=== PATIENT | female | born 1990 | race Caucasian/White ===

== ENCOUNTER 2023-11-20 12:50 | Inpatient (IN) | payer SELFPAY ==
[2023-11-20] VITALS (10 sets, daily range): BP systolic 110–144; BP diastolic 55–94; PULSE 75–94; RESP 16–18; TEMP 37.1–39.1; O2SAT 98–100; BMI 29.8
--- NOTE | 2023-11-20 13:19 | CT_ITS ---
WS: [id number] CT LEFT FOOT, WITH CONTRAST HISTORY: infection/abscess Technique: All CT scans at [facility] use at least one of these dose optimization techniques: automated exposure control; mA and/or kV adjustment per patient size (includes targeted exams where dose is matched to clinical indication); or iterative reconstruction. DLP: 290.18 mGy.cm COMPARISON: None available. Contrast: Omnipaque 350; 100 mL IV. Intramedullary kevin in the distal tibia. Additional fixation screws across the tibiotalar joint. No pr ior studies for comparison. No lucency is identified around the screws. There is osseous fusion acros s the subtalar joint. Focal soft tissue edema along the plantar surface of the foot at the level of the proximal fifth meta tarsal. There is a soft tissue tract which does not enhance extend into the anterior calcaneal proces s. This is highly suspicious for focal abscess. There is no osteomyelitis identified radiographically at this time. There is no loss of the normal overlying cortex. Size of the estimated soft tissue abs cess is 1.5 x 1.4 cm. Additional soft tissue abscess extends lateral from the anterior calcaneal proc ess. These 2 collections may actually communicate along the plantar surface of the foot. The smaller lateral collection is 1.4 x 1.0 cm. No definite osteomyelitis. CT/CT foot LT w con [id number] IMPRESSION: 1. Focal abscess along the plantar surface of the foot at the level of the ant erior calcaneus measuring 1.5 x 1.4 cm. 2. Additional abscess lateral to the anterior calcaneus measures 1.4 x 1.0 cm. These 2 collections probably communicate along the plantar surface of the calc aneus. 3. Soft tissue edema. 4. No osteomyelitis identified radiographically.
--- NOTE | 2023-11-20 13:21 | W.ED.EXTPRO ---
Documented by User: IRWIN Saucedo 11/20/23 16:28 HPI - Extremity Problem General: Chief complaint: Extremity Problem,Nontraumatic Stated complaint: left foot pain, infection Time Seen by Provider: 11/20/23 12:52 Source: patient and family Mode of arrival: ambulatory Limitations: no limitations History of Present Illness: Patient is a 33-year-old female with a history of epilepsy and neuromuscular dystrophy here with family for concerns of a left foot infection. She tells me she noticed the infection this morning and reportedly the foot was normal yesterday. She was reportedly seen at [facility] and referred to the emergency department. She denies known history of trauma or injury but reportedly cannot feel much to her legs. She is ambulatory here with the help of lower extremity bracing. She has not been running fevers although reportedly yesterday evening did not feel well . 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 MD Complaint: extremity pain and extremity swelling Onset (ago): hour(s) Pain Consistency: constant Location: left and other (foot) Radiation: none Relieving factors: nothing Exacerbating factors: nothing Associated symptoms: Reports no associated symptoms; Deny chest pain or fever(s) Review of Systems Const: Denies: fever(s), chills or body aches Card: Denies: chest pain Resp: Denies: dyspnea GI: Denies: abdominal pain Musc: Reports: extremity pain and extremity swelling; Denies: neck pain or back pain Neuro: Reports: numbness in extremities (chronic LE neuropathy) and sensory changes; Denies: headache(s) Physical Exam Const: COMMON NORMALS: no acute distress, average body habitus, patient oriented x3, no limitations, healthy appearing, alert and well nourished Resp: COMMON NORMALS: normal respiratory effort and clear to auscultation bilaterally AUSCULTATION: clear to auscultation bilaterally Cardio: COMMON NORMALS: regular rate and regular rhythm RATE: regular rate RHYTHM: regular rhythm Extremity: COMMON NORMALS: capillary refill normal GENERAL: Yes normal exam except as noted LEFT LOWER EXTREMITY: Yes foot & digits OTHER: chronic muscular atrophy consistent with her muscular dystrophy; patient has marked erythema to the plantar/lateral aspect of her L foot and ankle; there appears to be a plantar puncture wound to the bottom of the foot with developing abscess; no drainage; areas are very warm to the touch; she reportedly does not have much feeling to her lower extremities; no obvious lymphangitic streaking Neuro: COMMON NORMALS: patient oriented x3 SENSORIUM/ORIENTATION: Yes alert Skin: NARRATIVE SKIN EXAM: see above Course Consultations: Consultation #1: Dr. Chacon-agrees with plan for admission and will consult on patient Consultation #2: Dr. Calderón-will admit patient Vital Signs: Vital signs: Vital Signs Temperature 98.8 F 11/20/23 13:09 Pulse Rate 79 11/20/23 16:00 Respiratory Rate 16 11/20/23 13:09 Blood Pressure 138/82 11/20/23 16:00 Pulse Oximetry 100 11/20/23 16:00 Oxygen Delivery Me thod Room Air 11/20/23 16:00 MDM - Extremity (Nontraumatic) Medical Decision Making Patient is a 33-year-old female here with an extensive infection involving her left foot. There appears to be a plantar puncture wound clinically. CT scan showing 2 communicating abscesses along her calcaneus. No evidence of osteomyelitis at this time. She arrives with stable vital signs. Delayed blood work due to hemolysis. CRP has resulted and is 89.4. Blood cultures obtained and she has been started on Vanc and Zosyn. I have spoken to Dr. Chacon who agrees to consult on patient. Dr. Calderón will admit. Dr. Joseph aware of patient and will place admit orders. Medical Records I reviewed the patient's medical records. Lab Data 11/20/23 15:27 11/20/23 13:[address] 11/20/23 13:19 IMPRESSION: 1. Focal abscess along the plantar surface of the foot at the level of the anterior calcaneus measuring 1.5 x 1.4 cm. 2. Additional abscess lateral to the anterior calcaneus measures 1.4 x 1.0 cm. These 2 collections probably communicate along the plantar surface of the calcaneus. 3. Soft tissue edema. 4. No osteomyelitis identified radiographically. Laboratory Results WBC 6.25 10^3/uL (3.29-11.43) 11/20/23 15:27 Corrected WBC Cancelled 11/20/23 13:28 RBC 3.97 10^6/uL (3.85-5.65) 11/20/23 15:27 Hgb 11.50 g/dL (11.27-16.99) 11/20/23 15: Hct 35.9 % (36-47) L 11/20/23 15: MCV 90.4 fl (85-98) 11/20/23 15: MCH 29.0 pg (27-33) 11/20/23 15: MCHC 32.0 g/dL (30-55) 11/20/23 15: RDW 15.4 % (12.1-15.1) H 11/20/23 15:27 Plt Count 140 10^3/cmm (157-399) L 11/20/23 15: MPV 10.9 fL (7.4-10.4) H 11/20/23 15: Gran % Cancelled 11/20/23 13:28 Neut % (Auto) 71.7 % 11/20/23 15: Lymph % (Auto) 13.6 % 11/20/23 15: [place] % (Auto) 14.2 % 11/20/23 15: Eos % (Auto) 0.0 % 11/20/23 15:27 Baso % (Auto) 0.2 % 11/20/23 15:27 Neut # (Auto) 4.48 10^3/uL (1.8-7.7) 11/20/23 15: Lymph # (Auto) 0.9 10^3/uL (0.8-4.8) 11/20/23 15:27 [place] # (Auto) 0.9 10^3/uL (0.2-0.9) 11/20/23 15: Eos # (Auto) 0.0 10^3/uL (0.0-0.8) 11/20/23 15: Baso # (Auto) 0.0 10^3/uL (0.0-0.1) 11/20/23 15: Absolute Gran (auto) Cancelled 11/20/23 13:28 Nucleated RBC % (auto) 0 % 11/20/23 15: Nucleated RBCs # 0.0 /100WBC 11/20/23 15:27 ESR 31 mm/hr (0-15) H 11/20/23 15:27 Sodium 140 mmol/L (136-145) 11/20/23 13:28 Potassium 3.8 mmol/L (3.5-5.1) 11/20/23 13:28 Chloride 106 mmol/L (98-107) 11/20/23 13:28 Carbon Dioxide 19 mmol/L (22-29) L 11/20/23 13:28 Anion Gap 18.8 (5-19) 11/20/23 13:28 BUN 12 mg/dL (6-20) 11/20/23 13:28 Creatinine 0.4 mg/dL (0.5-0.9) L 11/20/23 13:28 GFR Calculation 182.7 mL/min (90-130) H 11/20/23 13:28 Glucose 88 mg/dL (65-115) 11/20/23 13:28 Calculated Osmolality 289 mOsm/kg (285-295) 11/20/23 13:28 Lactic Acid 0.6 mmol/L (0.5-2.2) 11/20/23 13:28 Calcium 8.7 mg/dL (8.5-10.5) 11/20/23 13:28 Total Bilirubin 0.4 mg/dL (0.15-1.2) 11/20/23 13:28 AST 45 U/L (0-32) H 11/20/23 13:28 ALT 59 U/L (0-33) H 11/20/23 13:28 Alkaline Phosphatase 186 U/L (35-105) H 11/20/23 13:28 C-Reactive Protein 89.4 mg/L (0.0-4.9) H 11/20/23 13:28 Total Protein 7.4 g/dL (6.6-8.7) 11/20/23 13:28 Albumin 3.8 g/dL (3.5-5.2) 11/20/23 13:28 Globulin 3.6 g/dL (1.3-4.6) 11/20/23 13:28 HCG, Qual Negative (Negative) 11/20/23 15:51 Urine Color Yellow (Yellow) 11/20/23 15:51 Urine Appearance Slightly cloudy (CLEAR) 11/20/23 15:51 Urine pH 6.5 (5-7) 11/20/23 15:51 Ur Specific [place] 1.010 (1.005-1.030) 11/20/23 15:51 Urine Protein Neg (Negative) 11/20/23 15:51 Urine Glucose (UA) Norm (Normal) 11/20/23 15:51 Urine Ketones Negative (Negative) 11/20/23 15:51 Urine Blood Neg (Negative) 11/20/23 15:51 Urine Nitrate Positive (Negative) A 11/20/23 15:51 Urine Bilirubin Neg (Negative) 11/20/23 15:51 Urine Urobilinogen Norm mg/dL (Negative) 11/20/23 15:51 Ur Leukocyte Esterase Trace (Negative) H 11/20/23 15:51 Urine RBC None /hpf (0-2) 11/20/23 15:51 Urine WBC Rare /hpf (0-5) 11/20/23 15:51 Ur Squamous Epith Cells 0-4 /hpf (0-5) H 11/20/23 15:51 Amorphous Sediment Not Reportable 11/20/23 15:51 Urine Bacteria 1+ /hpf (NONE) H 11/20/23 15:51 Discharge Plan Discharge Patient Disposition: Admitted As Inpatient Admit Provider: Jake Blevins Clinical Impression: Abscess of left foot, Cellulitis of foot, left, Infected puncture wound of plantar aspect of foot Condition: Stable Coding Level of Care Code ED Transit Survey Worker for Chg Fwd Documented by User: Todd Joseph DO 11/20/23 15:41 HPI - Extremity Problem General: Chief complaint: Extremity Problem,Nontraumatic Stated complaint: left foot pain, infection Time Seen by Provider: 11/20/23 12:52 Course Vital Signs: Vital signs: Vital Signs Temperature 98.8 F 11/20/23 13:09 Pulse Rate 79 11/20/23 16:00 Respiratory Rate 16 11/20/23 13:09 Blood Pressure 138/82 11/20/23 16:00 Pulse Oximetry 100 11/20/23 16:00 Oxygen Delivery Me thod Room Air 11/20/23 16:00 MDM - Extremity (Nontraumatic) Medical Decision Making Patient is a 33-year-old female here with an extensive infection involving her left foot. There appears to be a plantar puncture wound clinically. CT scan showing 2 communicating abscesses along her calcaneus. No evidence of osteomyelitis at this time. She arrives with stable vital signs. Delayed blood work due to hemolysis. CRP has resulted and is 89.4. Blood cultures obtained and she has been started on Vanc and Zosyn. I have spoken to Dr. Chacon who agrees to consult on patient. Dr. Calderón will admit. Dr. Joseph aware of patient and will place admit orders. Chart reviewed and patient discussed with midlevel. Agree with assessment and plan. Lab Data 11/20/23 15:27 11/20/23 13:[address] 11/20/23 13:19 IMPRESSION: 1. Focal abscess along the plantar surface of the foot at the level of the anterior calcaneus measuring 1.5 x 1.4 cm. 2. Additional abscess lateral to the anterior calcaneus measures 1.4 x 1.0 cm. These 2 collections probably communicate along the plantar surface of the calcaneus. 3. Soft tissue edema. 4. No osteomyelitis identified radiographically. Laboratory Results WBC 6.25 10^3/uL (3.29-11.43) 11/20/23 15:27 Corrected WBC Cancelled 11/20/23 13:28 RBC 3.97 10^6/uL (3.85-5.65) 11/20/23 15:27 Hgb 11.50 g/dL (11.27-16.99) 11/20/23 15: Hct 35.9 % (36-47) L 11/20/23 15:27 MCV 90.4 fl (85-98) 11/20/23 15: MCH 29.0 pg (27-33) 11/20/23 15: MCHC 32.0 g/dL (30-55) 11/20/23 15: RDW 15.4 % (12.1-15.1) H 11/20/23 15:27 Plt Count 140 10^3/cmm (157-399) L 11/20/23 15: MPV 10.9 fL (7.4-10.4) H 11/20/23 15:27 Gran % Cancelled 11/20/23 13:28 Neut % (Auto) 71.7 % 11/20/23 15:27 Lymph % (Auto) 13.6 % 11/20/23 15:27 [place] % (Auto) 14.2 % 11/20/23 15:27 Eos % (Auto) 0.0 % 11/20/23 15:27 Baso % (Auto) 0.2 % 11/20/23 15:27 Neut # (Auto) 4.48 10^3/uL (1.8-7.7) 11/20/23 15:27 Lymph # (Auto) 0.9 10^3/uL (0.8-4.8) 11/20/23 15:27 [place] # (Auto) 0.9 10^3/uL (0.2-0.9) 11/20/23 15:27 Eos # (Auto) 0.0 10^3/uL (0.0-0.8) 11/20/23 15:27 Baso # (Auto) 0.0 10^3/uL (0.0-0.1) 11/20/23 15:27 Absolute Gran (auto) Cancelled 11/20/23 13:28 Nucleated RBC % (auto) 0 % 11/20/23 15: Nucleated RBCs # 0.0 /100WBC 11/20/23 15:27 ESR 31 mm/hr (0-15) H 11/20/23 15:27 Sodium 140 mmol/L (136-145) 11/20/23 13:28 Potassium 3.8 mmol/L (3.5-5.1) 11/20/23 13:28 Chloride 106 mmol/L (98-107) 11/20/23 13:28 Carbon Dioxide 19 mmol/L (22-29) L 11/20/23 13:28 Anion Gap 18.8 (5-19) 11/20/23 13:28 BUN 12 mg/dL (6-20) 11/20/23 13:28 Creatinine 0.4 mg/dL (0.5-0.9) L 11/20/23 13:28 GFR Calculation 182.7 mL/min (90-130) H 11/20/23 13:28 Glucose 88 mg/dL (65-115) 11/20/23 13:28 Calculated Osmolality 289 mOsm/kg (285-295) 11/20/23 13:28 Lactic Acid 0.6 mmol/L (0.5-2.2) 11/20/23 13:28 Calcium 8.7 mg/dL (8.5-10.5) 11/20/23 13:28 Total Bilirubin 0.4 mg/dL (0.15-1.2) 11/20/23 13:28 AST 45 U/L (0-32) H 11/20/23 13:28 ALT 59 U/L (0-33) H 11/20/23 13:28 Alkaline Phosphatase 186 U/L (35-105) H 11/20/23 13:28 C-Reactive Protein 89.4 mg/L (0.0-4.9) H 11/20/23 13:28 Total Protein 7.4 g/dL (6.6-8.7) 11/20/23 13:28 Albumin 3.8 g/dL (3.5-5.2) 11/20/23 13:28 Globulin 3.6 g/dL (1.3-4.6) 11/20/23 13:28 HCG, Qual Negative (Negative) 11/20/23 15:51 Urine Color Yellow (Yellow) 11/20/23 15:51 Urine Appearance Slightly cloudy (CLEAR) 11/20/23 15:51 Urine pH 6.5 (5-7) 11/20/23 15:51 Ur Specific [place] 1.010 (1.005-1.030) 11/20/23 15:51 Urine Protein Neg (Negative) 11/20/23 15:51 Urine Glucose (UA) Norm (Normal) 11/20/23 15:51 Urine Ketones Negative (Negative) 11/20/23 15:51 Urine Blood Neg (Negative) 11/20/23 15:51 Urine Nitrate Positive (Negative) A 11/20/23 15:51 Urine Bilirubin Neg (Negative) 11/20/23 15:51 Urine Urobilinogen Norm mg/dL (Negative) 11/20/23 15:51 Ur Leukocyte Esterase Trace (Negative) H 11/20/23 15:51 Urine RBC None /hpf (0-2) 11/20/23 15:51 Urine WBC Rare /hpf (0-5) 11/20/23 15:51 Ur Squamous Epith Cells 0-4 /hpf (0-5) H 11/20/23 15:51 Amorphous Sediment Not Reportable 11/20/23 15:51 Urine Bacteria 1+ /hpf (NONE) H 11/20/23 15:51 All radiology interpretation(s) finalized by discharge Discharge Plan Discharge Patient Disposition: Admitted As Inpatient Admit Provider: Jake Blevins Clinical Impression: Abscess of left foot, Cellulitis of foot, left, Infected puncture wound of plantar aspect of foot Condition: Stable Coding Level of Care Code ED Transit Survey Worker for Sunita Mcbride
[2023-11-20] MEDS: piperacillin-tazobactam 3.375 GM in sodium chloride 0.9% (plus) 50 ML IV (13:58)
[2023-11-20 14:10] LABS: Chloride 106 mmol/L (98-107); Potassium 3.8 mmol/L (3.5-5.1); Sodium 140 mmol/L (136-145)
[2023-11-20] MEDS: iohexol 350 mg/mL 500 mL Btl (per mL) IV (14:10)
[2023-11-20 14:13] LABS: Lactic Sepsis W/Reflex 0.6 mmol/L (0.5-2.2)
--- NOTE | 2023-11-20 14:24 | PC.PHAR ---
PER [facility] [place], [place] [phone] PT HAS 2 MEDS BRAND NAME ONLY LAST FILL 10/15/23 90DS. KEPPRA 500MG 2 PO BID, LAMICTAL 25MG 2QAM.
[2023-11-20 14:32] LABS: Alanine Aminotransferase 59 U/L (0-33); Albumin Level 3.8 g/dL (3.5-5.2); Alkaline Phosphatase 186 U/L (35-105); Anion Gap 18.8 (5-19); Blood Urea Nitrogen 12 mg/dL (6-20); C Reactive Protein 89.4 mg/L (0.0-4.9); Calcium 8.7 mg/dL (8.5-10.5); Carbon Dioxide 19 mmol/L (22-29); Creatinine Clr Calc Pharmacy 201.4423; Globulin 3.6 g/dL (1.3-4.6); Glomerular Filtration Rate 182.7 mL/min (90-130); Glucose 88 mg/dL (65-115); Osmolality Calculated 289 mOsm/kg (285-295); Total Bilirubin 0.4 mg/dL (0.15-1.2); Total Protein 7.4 g/dL (6.6-8.7)
[2023-11-20] MEDS: vancomycin 1,000 MG in sodium chloride 0.9% 250 ML 250 MG IV ×2 (14:36→22:47)
[2023-11-20 14:53] LABS: Aspartate Amino Transferase 45 U/L (0-32)
[2023-11-20 15:37] LABS: Basophils % 0.2 %; Hematocrit 35.9 % (36-47); Lymphocytes # 0.9 10^3/uL (0.8-4.8); Lymphocytes % 13.6 %; Mean Corpuscular Volume 90.4 fl (85-98); Mean Platelet Volume 10.9 fL (7.4-10.4); Monocytes # 0.9 10^3/uL (0.2-0.9); Monocytes % 14.2 %; Neutrophils # 4.48 10^3/uL (1.8-7.7); Neutrophils % 71.7 %; Nucleated Red Blood Cells % 0 %; Platelet Count 140 10^3/cmm (157-399); Red Blood Count 3.97 10^6/uL (3.85-5.65); Red Cell Distribution Width 15.4 % (12.1-15.1); White Blood Count 6.25 10^3/uL (3.29-11.43)
[2023-11-20 16:01] LABS: Erythrocyte Sedimentation Rate 31 mm/hr (0-15)
--- NOTE | 2023-11-20 16:07 | P.HP_ITS ---
Providers/Chief Complaint 2 Chief Complaint: left foot pain, infection History of Present Illness Belkys Alba is a 33 year old female with past medical history of seizure disorder with last seizure many years ago Patient was brought into the ER with caregivers today because they noticed boggy swelling of the foot earlier in the day. Patient chronically does not have any sensation in the extremities so she is not aware of any injury to the foot recently. She also has an additional wound on the left hand. After the patient she lifted a hot keys by mistake after which she developed the wound on the hand over a month ago. She has been dressing the wound on and off with bandage. She has additional circumferential wound on the ring fingers of right hand. She does give history of deep possible bone infection many years ago for which she was on antibiotics for a long time. Patient herself denies any nausea, vomiting, abdominal pain, diarrhea. Does complain of having occasional headaches. Denies any subjective fever or fever. In the ER, CT of the foot was done which showed concerns for deep tissue infection with 2 abscess. Review of Systems 2 General: Reports: 10 or more systems reviewed and unremarkable except in HPI and below Const: Denies: fever(s), chills, body aches, change in appetite, change in weight, malaise, night sweats, diaphoresis, change in sleep pattern, daytime sleepiness or snoring Eyes: Denies: change in vision, blurry vision, photophobia, eye discomfort or eye discharge ENMT: Denies: throat pain, enlarged tonsils, hoarseness, mouth pain, oral sores, dry mouth, tinnitus, nasal congestion or post nasal drip Card: Denies: chest pain, palpitations, irregular heart rhythm, edema, swelling of feet/ankles, lightheadedness, syncope, pre-syncope, dyspnea on exertion, orthopnea, leg pain with exertion or acrocyanosis Resp: Denies: dyspnea, productive cough, non-productive cough, wheezing, stridor, pain on inspiration, change in phlegm color, hemoptysis or chest congestion GI: Denies: abdominal pain, nausea, vomiting, hematemesis, coffee ground emesis, dysphagia, heartburn, diarrhea, constipation, bloating, GI cramping, change in bowel habits, pain on defecation, hematochezia or melena : Denies: flank pain, dysuria, urinary frequency, urinary urgency, urinary hesitancy, nocturia or hematuria Musc: Denies: neck pain, back pain, extremity pain, joint pain, joint swelling, joint redness, joint stiffness or limited range of motion Neuro: Denies: headache(s), numbness in extremities, weakness in extremities, sensory changes, lack of coordination, difficulty walking, frequent falls, dizziness, vertigo, confusion, Slurred speech present, difficulty communicating thoughts or seizure-like activity Psych: Denies: anxiety, depression, mood swings, panic attacks, hopelessness or irritability Endo: Denies: polyuria, polydipsia, tired all the time, cold intolerance, excessive sweating, flushing or heat intolerance [place]/Lymph: Denies: easy bruising or easy bleeding All/Imm: Denies: tongue swelling, facial swelling or acute wheezing Medications/Allergies Home Medications Medication Instructions Recorded Confirmed Last Taken Type lamotrigine 25 mg tablet (Lamictal) 50 mg PO QAM 11/20/23 11/20/23 11/20/23 History levetiracetam 500 mg tablet 1,000 mg PO BID 11/20/23 11/20/23 11/20/23 History (Keppra) Allergies Allergy/AdvReac Type Severity Reaction Status Date / Time morphine Allergy ADR-Vomitin Verified 11/20/23 13:12 g sulfamethoxazole Allergy ADR-Vomitin Verified 11/20/23 13:12 [From Bactrim] g trimethoprim [From Bactrim] Allergy ADR-Vomitin Verified 11/20/23 13:12 g PFSH Acute 2 PFSH: Medical History (Updated 11/21/23 @ 11:47 by Jake Blevins MD) Fixation hardware in leg Orthopedic hardware present Muscular dystrophy Seizure disorder Surgical History (Updated 11/21/23 @ 11:50 by Jake Blevins MD) Status post open reduction with internal fixation of fracture Family History (Updated 11/21/23 @ 12:16 by Jake Blevins MD) Other Muscular dystrophy Seizure disorder Social History (Updated 11/21/23 @ 12:17 by Jake Blevins MD) Alcohol intake: never Caregiver/support person: Yes Household members: spouse Housing: House Marital status: Vitals/I&O/Wt Last Vital Signs Temp 98.8 F 11/20/23 13:09 Pulse 79 11/20/23 14:41 Resp 16 11/20/23 13:09 BP 119/80 11/20/23 15:30 Pulse Ox 100 11/20/23 14:41 O2 Del Method Room Air 11/20/23 14:41 11/20/23 11/20/23 11/20/23 06:59 14:59 22:59 Intake Total 50 / 50 Balance 50 / 50 Weight last 48 hrs Weight 78.925 kg Physical Exam 2 Narrative: General: No acute distress, AO x3 HEENT: PERRLA, pupils bilaterally equal and reactive Chest: Normal vesicular breath sounds, no added sounds, equal good air entry bilaterally CVS: S1-S2 regular, no murmurs, no tachycardia, no gallops, no rubs Abdomen: Soft, nontender, no organomegaly, bowel sounds present Neuro: No focal deficits, no facial deformity, AO x3, power 5/5 in all limbs Extremity: Left foot: Boggy swelling of the plantar aspect of the foot, localized recent temperature Left hand: Superficial partially healed wound present at the palmar aspect of the hand Missing top of the digits on both hands, contracture present Skin: OTHER: Data 11/21/23 05:31 11/21/23 05:31 Micro: Microbiology 11/20/23 13:35 Blood Culture - Preliminary Blood SPECIMEN COLLECTED 11/20/23 13:28 Blood Culture - Preliminary Blood SPECIMEN COLLECTED A&P Assessment and plan (1) Infected puncture wound of plantar aspect of foot: With concerns of cellulitis and abscess. Cannot rule out hardware infection. No osteomyelitis seen on CT with contrast. Dr. Chacon consulted from the ER. Check blood culture, MRSA swab, ESR, CRP. Empirically start on IV vancomycin and IV Zosyn. Patient most likely will need antibiotics for around 4-6 weeks post debridement in setting of abscess and possibility of hardware infection. Will have to follow-up OR cultures and plan further antibiotics accordingly. Tramadol 50 mg every 6 hourly as needed for pain control. Qualifiers: Encounter type: initial encounter Laterality: left Qualified Code(s): S91.332A - Puncture wound without foreign body, left foot, initial encounter; L08.9 - Local infection of the skin and subcutaneous tissue, unspecified (2) Cellulitis of foot, left: (3) Abscess of left foot: (4) Seizure disorder: (5) Muscular dystrophy: Plan Continue home dose of lamotrigine and Keppra. Left hand wound: Will plan for x-ray of the left hand to rule out deep collection. Wound care with Hydrofera Blue for now. Regular diet Heparin for DVT prophylaxis Famotidine for PUD prophylaxis Attestations 2 Medical Necessity Statement*: Admission for more than 2 midnights for management of infected puncture wound of the foot with cellulitis and abscess requiring debridement Diagnoses Infected puncture wound of plantar aspect of foot S91.332A; L08.9 Encounter type: initial encounter Laterality: left Cellulitis of foot, left L03.116 Abscess of left foot L02.612 Seizure disorder G40.909 Muscular dystrophy G71.00
[2023-11-20 16:15] LABS: Urine Color Yellow (Yellow)
[2023-11-20 16:16] LABS: Add Urine Microscopic? YES; Bacteria Urine 1+ /hpf; Bilirubin Urine Neg (Negative); Blood Urine Neg (Negative); Glucose Urine UA Norm (Normal); Ketones Urine Negative (Negative); Leukocyte Esterase Urine Trace (Negative); Nitrate Urine Positive (Negative); Protein Urine Neg (Negative); Squamous Epithelial Cell Urine 0-4 /hpf (0-5); Urine Appearance Slightly Cloudy (CLEAR); Urobilinogen Urine Norm (Negative); WBC Urine RARE /hpf (0-5); pH Urine 6.5 (5-7)
[2023-11-20 16:22] LABS: HCG Qualitative Urine. Negative (Negative)
--- NOTE | 2023-11-20 16:25 | PC.NURSE ---
report called to liset at 1623. Dr. Blevins to see pt prior to going up to med surg.
[2023-11-20 16:40] LABS: Procalcitonin 0.06 ng/mL (0-0.5)
--- NOTE | 2023-11-20 16:54 | P.CONIM_ITS ---
Providers/Reason For Consult 2 Consulting Physician/Specialty*: Sebas Chacon D.P.M./podiatry Reason for Consult*: Left foot infection Attending Physician: Jake Blevins MD History of Present Illness History of Present Illness Belyks Alba is a 33 year old female presents to the emergency department with complaints of red hot swollen left foot, unsure of etiology she has a neuromuscular disorder and has diminished protective sensation to her extremities, she believes she may have potentially sustained a puncture wound. Redness was noticed yesterday by her . She is also accompanied by her Father Yaron. Patient recently and recently moved to [place] from [place]. States that she has history of multiple surgeries to the left lower extremity. She had a reconstructive surgery on her left foot in [place], also had a left intramedullary nail due to a tib-fib fracture. She reports experiencing a postop infection at her left foot surgery, per her report a surgical cleanout was required and this entailed debriding bone. Patient denies any subjective nausea, vomiting, fever, chills, shortness of breath or chest pain. Review of Systems 2 General: Reports: 10 or more systems reviewed and unremarkable except in HPI and below Const: Denies: fever(s) or chills Eyes: Denies: change in vision Card: Denies: chest pain or palpitations Resp: Denies: dyspnea or productive cough GI: Denies: abdominal pain, nausea or vomiting : Denies: flank pain Musc: Reports: extremity swelling, joint stiffness and deformity Skin/Breast: Reports: erythema, sores, changes in skin color, dry skin, nail changes and change in hair Neuro: Reports: numbness in extremities, sensory changes and difficulty walking Psych: Denies: suicidal ideation Endo: Denies: change in body appearance Candelario/Lymph: Denies: tender lymph nodes Medications/Allergies Home Medications Medication Instructions Recorded Confirmed Last Taken Type lamotrigine 25 mg tablet (Lamictal) 50 mg PO QAM 11/20/23 11/20/23 11/20/23 History levetiracetam 500 mg tablet 1,000 mg PO BID 11/20/23 11/20/23 11/20/23 History (Keppra) Allergies Allergy/AdvReac Type Severity Reaction Status Date / Time morphine Allergy ADR-Vomitin Verified 11/20/23 13:12 g sulfamethoxazole Allergy ADR-Vomitin Verified 11/20/23 13:12 [From Bactrim] g trimethoprim [From Bactrim] Allergy ADR-Vomitin Verified 11/20/23 13:12 g PFSH Acute 2 PFSH: Medical History (Updated 11/20/23 @ 17:14 by Jake Blevins MD) Seizure disorder Vitals/I&O/Wt Last Vital Signs Temp 98.8 F 11/20/23 13:09 Pulse 79 11/20/23 16:00 Resp 16 11/20/23 13:09 BP 138/82 11/20/23 16:00 Pulse Ox 100 11/20/23 16:00 O2 Del Method Room Air 11/20/23 16:00 11/20/23 11/20/23 11/20/23 06:59 14:59 22:59 Intake Total 50 / 50 250 / 300 Balance 50 / 50 250 / 300 Weight last 48 hrs Weight 174 lb Physical Exam 2 Narrative: GENERAL: Patient is alert and oriented ?3 and in no acute distress. The following is a focused left lower extremity exam. VASCULAR: Dorsalis pedis palpable. Posterior tibial artery palpable. Capillary refill time less than 3 seconds to the distal hallux bilaterally. Calf is supple and nontender proximally and distally. Edema focally to the left lateral midfoot and forefoot. Increased warmth at the left lateral foot. NEUROLOGICAL: Protective sensation intact 0/10 sites, tested with Henriette Bety monofilament to bilateral feet. DERMATOLOGICAL: Punctuate lesion left plantar foot is area of potential portal of entry for puncture wound, no drainage from the site and measures 1 mm x 1 mm, does not probe deep, no sinus tract. No obvious open wound. Erythema at the left lateral foot. MUSCULOSKELETAL: No pain to palpation left foot secondary to diminished sensation. No crepitus with soft tissue palpation left foot. No range of motion left subtalar joint and left midfoot joint. Smooth nonpainful range of motion left ankle. Data 11/20/23 15:27 11/20/23 13:28 Micro: Microbiology 11/20/23 13:35 Blood Culture - Preliminary Blood SPECIMEN COLLECTED 11/20/23 13:28 Blood Culture - Preliminary Blood SPECIMEN COLLECTED Other data: Ordering Provider/Ordering MD: Sana Ye Date of Service: 07/26/24 Procedure(s): CT foot LT w con [id number] Accession Number(s): [id number] Report Number: [id number] WS: [id number] CT LEFT FOOT, WITH CONTRAST HISTORY: infection/abscess Technique: All CT scans at [facility] use at least one of these dose optimization techniques: automated exposure control; mA and/or kV adjustment per patient size (includes targeted exams where dose is matched to clinical indication); or iterative reconstruction. DLP: 290.18 mGy.cm COMPARISON: None available. Contrast: Omnipaque 350; 100 mL IV. Intramedullary kevin in the distal tibia. Additional fixation screws across the tibiotalar joint. No prior studies for comparison. No lucency is identified around the screws. There is osseous fusion across the subtalar joint. Focal soft tissue edema along the plantar surface of the foot at the level of the proximal fifth metatarsal. There is a soft tissue tract which does not enhance extend into the anterior calcaneal process. This is highly suspicious for focal abscess. There is no osteomyelitis identified radiographically at this time. There is no loss of the normal overlying cortex. Size of the estimated soft tissue abscess is 1.5 x 1.4 cm. Additional soft tissue abscess extends lateral from the anterior calcaneal process. These 2 collections may actually communicate along the plantar surface of the foot. The smaller lateral collection is 1.4 x 1.0 cm. No definite osteomyelitis. CT/CT foot w [facility] [id number] IMPRESSION: 1. Focal abscess along the plantar surface of the foot at the level of the anterior calcaneus measuring 1.5 x 1.4 cm. 2. Additional abscess lateral to the anterior calcaneus measures 1.4 x 1.0 cm. These 2 collections probably communicate along the plantar surface of the calcaneus. 3. Soft tissue edema. 4. No osteomyelitis identified radiographically. 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 X-ray left foot shows intact hardware at midfoot fusion x 2 and subtalar joint fusion as well as tibial kevin. No cortical irregularity or bony destruction, no soft tissue edema and no foreign body appreciated per my interpretation. CT scan left foot concerning for 2 abscesses communicating with each other and potentially plantarly to area of concern for puncture wound lateral to the anterior calcaneus. No leukocytosis Elevated CRP 89.4 mg/L Elevated ESR 31 Patient admitted to hospital service and started on empiric IV antibiotics N.p.o. at midnight Plans for I&D left foot tomorrow morning. Nonweightbearing left foot Podiatry will follow. Consult Attestations 2 Medical Necessity Statement: Abscess left foot, cellulitis left foot, requires IV antibiotics and surgical debridement. Coding Level of Care Code Acute Code for [facility] Diagnoses Abscess of left foot L02.612 Cellulitis of foot, left L03.116 Infected puncture wound of plantar aspect of foot S91.332A; L08.9 Encounter type: initial encounter Laterality: left
--- NOTE | 2023-11-20 16:57 | XRR_ITS ---
PROCEDURE INFORMATION: Exam: XR Left Foot Exam date and time: 11/20/2023 7:32 PM Age: 33 years old Clinical indication: Left; Prior surgery; Surgery date: 6+ months; Surgery type: Tendon release; Patient HX: Lt ankle/foot nerve pain; Open wound to bottom of lt foot; Concern for osteomyelitis; Previous orif of lt lower ext TECHNIQUE: Imaging protocol: Radiologic exam of the left foot. Views: 3 or more views. COMPARISON: CT foot LT w con [id number] 11/20/2023 2:09 PM FINDINGS: Bones/joints: Three threaded screws overlie the calcaneus, talus, and cuboid. [place] overlie the cuboid. No periprosthetic fracture or evidence of hardware failure. Severe degenerative changes of the foot with joint space narrowing. Partially visualized hardware within the distal tibia. Soft tissues: Moderate soft tissue swelling of the foot. XR/XR foot LT min 3V* [id number] IMPRESSION: Hardware is visualized in the proximal foot without evidence of hardware failure. No acute fractures seen. Severe degenerative changes of the foot.
--- NOTE | 2023-11-20 17:12 | XRR_ITS ---
PROCEDURE INFORMATION: Exam: XR Left Hand Exam date and time: 11/20/2023 7:32 PM Age: 33 years old Clinical indication: Injury or trauma; Other: Wound; Hand; Left; Prior surgery; Surgery date: 6+ months; Surgery type: Tendon release; Additional info: Open wound to lt palm; Lt ankle/foot nerve pain; Open wound to bottom of lt foot; Concern for osteomyelitis; Previous orif of lt lower ext. TECHNIQUE: Imaging protocol: Radiologic exam of the left hand. Views: 3 or more views. COMPARISON: No relevant prior studies available. FINDINGS: Bones/joints: No acute fractures or subluxations. Hardware overlies the distal and proximal phalanx of the 1st digit. Soft tissues: Soft tissue swelling of the palm. XR/XR hand LT 2V [id number] IMPRESSION: No acute fractures or subluxations.
--- NOTE | 2023-11-20 17:24 | PC.NURSE ---
Dr. Blevins called and states that patient can take her home medications in place of the generic brand medications that the hospital has available for pt. This nurse called med surg and relayed the message.
--- NOTE | 2023-11-20 17:28 | XRR_ITS ---
PROCEDURE INFORMATION: Exam: XR Left Tibia and Fibula Exam date and time: 11/20/2023 7:32 PM Age: 33 years old Clinical indication: Lower leg; Left; Prior surgery; Surgery date: 6+ months; Surgery type: Orif lt tibfib; Patient HX: Lt ankle/foot nerve pain; Open wound to bottom of lt foot; Concern for osteomyelitis; Previous orif of lt lower ext TECHNIQUE: Imaging protocol: Radiologic exam of the left tibia and fibula. Views: 2 views. COMPARISON: CR XR foot LT min 3V* [id number] 11/20/2023 7:32 PM FINDINGS: Bones/joints: Intramedullary kevin with proximal and distal interlocking screws overlies a the chronic fracture of the distal tibia in unchanged alignment. No periprosthetic fracture or hardware failure. Chronic deformity of the fibular diaphysis. The knee is well aligned. No knee joint effusion. Postsurgical changes with screw fixation of the visualized foot. Severe degenerative changes of the ankle with joint space narrowing. Soft tissues: The soft tissues are unremarkable. XR/XR tibia fibula LT 2V [id number] IMPRESSION: Intramedullary kevin with proximal and distal interlocking screws overlies a the chronic fracture of the distal tibia in unchanged alignment. No periprosthetic fracture or hardware failure. Chronic deformity of the fibular diaphysis.
--- NOTE | 2023-11-20 17:54 | PC.NURSE ---
Dr. Blevins called and spoke to this nurse, requesting we get medical hospital records from [facility]. This nurse relayed the message to Unit coordination Brian.
[2023-11-20 17:56] LABS: Iron 19 ug/dL (37-145); Thyroid Stimulating Hormone 1.02 uIU/mL (0.27-4.20); Vitamin B12 284 pg/mL (232-1245)
[2023-11-20 17:58] LABS: Percent Saturation 5.9 % (20-50); Total Iron Binding Capacity 319 mcg/dl; Unsaturated Iron Binding 300 ug/dL (112-347)
[2023-11-20] MEDS: sodium chloride 0.9% 1,000 ML 100 ML IV (18:21)
[2023-11-20] MEDS: heparin 5,000 unit/mL INJ 1 mL 5000 UNIT SUBCUT (18:40)
[2023-11-20] MEDS: famotidine 20 mg Tablet PO (19:36)
[2023-11-20] MEDS: acetaminophen 325 mg Tablet 650 MG PO (20:16)
[2023-11-21] VITALS (17 sets, daily range): BP systolic 97–130; BP diastolic 49–82; PULSE 60–94; RESP 12–20; TEMP 36.3–39.1; O2SAT 94–100; BMI 32.1
[2023-11-21] MEDS: piperacillin-tazobactam 3.375 GM in sodium chloride 0.9% (plus) 50 ML IV ×3 (00:02→23:40)
[2023-11-21 05:45] LABS: Lymphocytes # 1.1 10^3/uL (0.8-4.8); Lymphocytes % 22.9 %; Mean Corpuscular HGB Conc 31.9 g/dL (30-55); Mean Corpuscular Hemoglobin 28.7 pg (27-33); Mean Corpuscular Volume 89.9 fl (85-98); Monocytes # 0.8 10^3/uL (0.2-0.9); Monocytes % 16.7 %; Neutrophils # 2.91 10^3/uL (1.8-7.7); Neutrophils % 60.2 %; Nucleated Red Blood Cells % 0 %; Platelet Count 116 10^3/cmm (157-399); Red Blood Count 3.56 10^6/uL (3.85-5.65); Red Cell Distribution Width 15.7 % (12.1-15.1); White Blood Count 4.84 10^3/uL (3.29-11.43)
[2023-11-21] MEDS: vancomycin 1,000 MG in sodium chloride 0.9% 250 ML 250 MG IV ×3 (05:52→22:30)
[2023-11-21] MEDS: heparin 5,000 unit/mL INJ 1 mL 5000 UNIT SUBCUT ×2 (05:54→17:10)
[2023-11-21 05:58] LABS: Estmated Average Glucose 103; Hemoglobin A1C 5.2 % (4.0-6.0)
[2023-11-21 06:23] LABS: Folate Level 18.7 ng/mL (4.8-37.3)
[2023-11-21 06:26] LABS: Chol HDL Ratio 3.02 mg/dL (0.0-4.40); Cholesterol 136 mg/dL (0-200); HDL Cholesterol 45 mg/dL (60-100); LDL Cholesterol Calculated 80 mg/dL (50-129); LDL HDL Ratio 1.78 RATIO (0.00-3.22); Triglycerides 56 mg/dL (0-150)
[2023-11-21] MEDS: LAMICTAL 25 MG 2 EACH PO (07:13)
[2023-11-21] MEDS: pantoprazole DR 40 mg Tablet PO (07:38)
--- NOTE | 2023-11-21 07:52 | PC.NURSE ---
Pt taken down to surgery by surgery staff via stretcher.
[2023-11-21 08:03] LABS: Alanine Aminotransferase 58 U/L (0-33); Albumin Level 3.3 g/dL (3.5-5.2); Alkaline Phosphatase 190 U/L (35-105); Anion Gap 14.5 (5-19); Aspartate Amino Transferase 55 U/L (0-32); Blood Urea Nitrogen 11 mg/dL (6-20); Calcium 7.5 mg/dL (8.5-10.5); Carbon Dioxide 19 mmol/L (22-29); Chloride 109 mmol/L (98-107); Globulin 2.6 g/dL (1.3-4.6); Glomerular Filtration Rate 182.7 mL/min (90-130); Glucose 97 mg/dL (65-115); Magnesium 2.2 mg/dL (1.7-2.3); Osmolality Calculated 287 mOsm/kg (285-295); Phosphorus 2.7 mg/dL (2.5-4.5); Potassium 3.5 mmol/L (3.5-5.1); Sodium 139 mmol/L (136-145); Total Bilirubin 0.3 mg/dL (0.15-1.2); Total Protein 5.9 g/dL (6.6-8.7)
--- NOTE | 2023-11-21 08:19 | P.HPUD_ITS ---
Surgery/Procedure H&P Update DATE OF PROCEDURE: November 21, 2023 DATE H&P PERFORMED: 11/20/23 H&P UPDATE INFORMATION: I have reviewed H&P completed within last 30 days, I have examined patient prior to procedure, No changes to prior documentation and H&P is in [facility] EMR on date indicated PREOP DIAGNOSIS: Puncture wound, abscess and cellulitis left foot PLANNED PROCEDURE: Operation Date: 11/21/23 08:55 Proposed Procedures p Incision And Drainage of Left Foot for abcess(Left) - Sebas Chacon DPM
--- NOTE | 2023-11-21 08:19 | PM.OP ---
Operative Report Date of procedure: November 21, 2023 Pre-op diagnosis: Abscess left foot Puncture wound left foot Cellulitis left foot Post-op diagnosis: Same Procedure done: Incision and debridement left foot. CPT code 35409 Implants: 4 nylon Specimens removed/disposition: Deep wound cultures taken intraoperatively sent to microbiology for Gram stain, culture and sensitivity. Surgeon: Sebas Chacon DPM Mechanic Chief: Haylie De León 7 minutes IV fluids: See intraoperative documentation Urine output: None Complications: None Findings: Purulent drainage and abscess left foot, wound cultures taken. 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 X-ray left foot shows intact hardware at midfoot fusion x 2 and subtalar joint fusion as well as tibial kevin. No cortical irregularity or bony destruction, no soft tissue edema and no foreign body appreciated per my interpretation. CT scan left foot concerning for 2 abscesses communicating with each other and potentially plantarly to area of concern for puncture wound lateral to the anterior calcaneus. No leukocytosis Elevated CRP 89.4 mg/L Elevated ESR 31 Recommended incision and debridement with drainage of abscess left foot possible hardware removal pending her response to that. I reviewed at length with the patient, the risks, potential complications, benefits, alternatives, expectations, and typical outcomes associated with the surgery. The risks and potential complications were explained in detail, including but not limited to infection, wound dehiscence or soft tissue complications, bleeding and hematoma, chronic edema, neuritis or nerve damage producing numbness or chronic pain, CRPS, failure to relieve pain or worsening pain, thick / painful / unsightly scar, limited motion / stiffness, malposition, delayed union, malunion, or nonunion, fracture, reaction to implants, anesthetic complications, venous thromboembolism, and deformity recurrence. I discussed the notion of no regrets with the patient as it pertains to complications and outcomes. The patient seemed to understand the nature of the proposed care and required convalescence. They asked appropriate questions, answered to their satisfaction. They are aware no guarantees can be made as to a satisfactory outcome and they understand there may be other possible unforeseen complications or outcomes not listed here that will be treated accordingly if they arise. There were no written or implied guarantees given to the patient. They gave informed consent to proceed. Procedure: Under mild sedation patient was brought to the operating room and remained on the gurney in supine position. A timeout was performed. Anesthesia was then administered by the anesthesia service. Local anesthesia injected by myself consisting of 30 cc of one-to-one mixture 1% lidocaine and 0.5% Marcaine plain and a proximal reverse [place] block to the left foot. Left lower extremity was scrubbed, prepped and draped utilizing normal aseptic technique. No Esmarch was utilized. Left foot was elevated and tourniquet inflated to 250 mmHg. Attention was directed to the plantar left foot where a puncture wound was appreciated, also bogginess anterior at the left lateral foot appreciated. Directly over the area of bogginess and suspected abscess #15 blade was utilized to perform a 3 cm lesion, purulent drainage was encountered and tracking down to the puncture wound plantarly was appreciated intraoperatively. The wound was debrided sharply and excisionally in nature with pickups and a #15 blade of all devitalized tissue which included epidermis, dermis, subcutaneous tissue, fat, fascia and muscle. Postdebridement wound improvement appreciated in overall quality of soft tissue. Dorsal incision was closed with 3-0 Prolene and quarter inch [place] drain inserted into the plantar puncture wound. Tourniquet was deflated and a prompt hyperemic response noted to the distal digits of the left foot. Patient tolerated the procedure and anesthesia well and was transferred to the PACU with vital signs stable vascular status intact. After period of postop monitoring she will be transferred back to the [facility] floor to continue IV antibiotics, intraoperative deep tissue cultures were taken both aerobic and anaerobic sent to microbiology for Gram stain, culture and sensitivity.
[2023-11-21] MEDS: sodium chloride 0.9% 1,000 ML 30 ML IV (08:34)
--- NOTE | 2023-11-21 08:35 | ANES.PREANE2 ---
Pre-Anesthetic Assessment Height/Weight: Height 1.63 m Weight 85.049 kg Temp Pulse Resp BP Pulse Ox O2 Del Method 101.1 F H 86 19 H 109/63 99 Room Air 11/21/23 07:59 11/21/23 07:59 11/21/23 07:59 11/21/23 07:59 11/21/23 07:59 11/21/23 07:19 Preop Diagnosis: Puncture wound, abscess and cellulitis left foot Operation Date: 11/21/23 08:55 Proposed Procedures p Incision And Drainage of Left Foot for abcess(Left) - Sebas Chacon DPM Familial anesthetic complications: Gives her heartburn Was Beta Gerson taken within 24 hours: N/A Was Clonidine taken within 24 hours: N/A Last intake: Intake Last Liquid Date 11/20/23 Last Solid Date 11/20/23 Social No alcohol and No tobacco Exam alert, oriented x 3, clear to auscultation bilaterally and regular rate & rhythm Musc/skel muscular dystrophy Neuropsych seizures Anesthetic Plan ASA status: 3 Anesthesia: MAC Other: Reglan, pepcid, bicitra to prevent heart bur, Will keep HOB > 30 degrees and avoid succinylcholine Risk of > 500 ml blood loss (7ml/kg in children): No Medications/Allergies Home Medications Medication Instructions Recorded Confirmed Last Taken Type lamotrigine 25 mg tablet (Lamictal) 50 mg PO QAM 11/20/23 11/20/23 11/20/23 History levetiracetam 500 mg tablet 1,000 mg PO BID 11/20/23 11/20/23 11/20/23 History (Yo) Allergies Allergy/AdvReac Type Severity Reaction Status Date / Time morphine Allergy ADR-Vomitin Verified 11/20/23 13:12 g sulfamethoxazole Allergy ADR-Vomitin Verified 11/20/23 13:12 [From Bactrim] g trimethoprim [From Bactrim] Allergy ADR-Vomitin Verified 11/20/23 13:12 g Current Medications Generic Name Dose Route Start Last Admin Trade Name Freq PRN Reason Stop Dose Admin Acetaminophen 650 mg 11/20/23 17:39 11/20/23 20:16 Acetaminophen 325 Mg Tablet PO 650 mg Q6H PRN Administration Mild/Mod Pain Or Temp >/= 101 Famotidine 20 mg 11/20/23 18:00 11/21/23 07:59 Famotidine 20 Mg Tablet PO Not Given BID RADHA Heparin Sodium (Porcine) 5,000 unit 11/20/23 17:39 11/21/23 05:54 Heparin 5,000 Unit/Ml Inj 1 Ml SUBCUT 5,000 unit Q12H RADHA Administration Sodium Chloride 1,000 mls @ 100 mls/hr 11/20/23 17:39 11/21/23 07:58 Sodium Chloride 0.9% IV Not Given .Q10H RADHA Vancomycin HCl 1,000 mg/ 250 mls @ 250 mls/hr 11/20/23 22:00 11/21/23 07:02 Sodium Chloride IV Infused Q8H RADHA Infusion Protocol Piperacillin Sod/Tazobactam 50 mls @ 12.5 mls/hr 11/20/23 20:00 11/21/23 07:58 Sod 3.375 gm/ Sodium Chloride IV Not Given Q8H RADHA Protocol Sodium Chloride 1,000 mls @ 30 mls/hr 11/21/23 08:00 11/21/23 08:34 Sodium Chloride 0.9% IV 11/22/23 07:59 30 mls/hr .Q24H RADHA Administration Keppra 500mg Tab 2 each 11/20/23 20:00 11/21/23 07:17 PO 2 each BID RADHA Administration Lamictal 25 Mg Tab 2 each 11/21/23 06:00 11/21/23 07:13 PO 2 each QAM RADHA Administration Pantoprazole Sodium 40 mg 11/21/23 08:00 11/21/23 07:[address] 40 Mg Tablet PO 40 mg DAILY@0800 RADHA Administration [facility] Anesthesia Medical History (Updated 11/20/23 @ 17:14 by Jake Blevins MD) Seizure disorder Female Reproductive History Date of last menstrual period: 11/08/23 Data Anesthesia 11/21/23 05:31 11/21/23 05:31 Short CBC 11/20/23 11/20/23 11/21/23 Range/Units 13:28 15:27 05:31 WBC Cancelled 6.25 4.84 Hgb Cancelled 11.50 10.20 L Hct Cancelled 35.9 L 32.0 L MCV Cancelled 90.4 89.9 Plt Count Cancelled 140 L 116 L Neut % (Auto) Cancelled 71.7 60.2 Neut # (Auto) Cancelled 4.48 2.91 BMP 11/20/23 11/21/23 13:28 05:31 Sodium 140 139 Potassium 3.8 3.5 Chloride 106 Carbon Dioxide 19 L BUN 12 11 Creatinine 0.4 L Glucose 88 97 Calcium 8.7 Liver Function 11/20/23 11/21/23 Range/Units 13:28 05:31 Total Bilirubin 0.4 0.3 (0.15-1.2) mg/dL AST 45 H (0-32) U/L ALT 59 H (0-33) U/L Alkaline Phosphatase 186 H (35-105) U/L Albumin 3.8 (3.5-5.2) g/dL Urine 11/20/23 Range/Units 15:51 Urine Color Yellow (Yellow) Urine Appearance Slightly cloudy (CLEAR) Urine pH 6.5 (5-7) Ur Specific [place] 1.010 (1.005-1.030) Urine Protein Neg (Negative) Urine Glucose (UA) Norm (Normal) Urine Ketones Negative (Negative) Urine Nitrate Positive A (Negative) Urine Bilirubin Neg (Negative) Ur Leukocyte Esterase Trace H (Negative) Urine RBC None (0-2) /hpf Urine WBC Rare (0-5) /hpf Coags 11/20/23 11/20/23 13:28 15:27 ESR Cancelled 31 H C-Reactive Protein 89.4 H Microbiology 11/20/23 13:35 Blood Culture - Preliminary Blood SPECIMEN COLLECTED 11/20/23 13:28 Blood Culture - Preliminary Blood SPECIMEN COLLECTED Cardiac Studies: No Data to Display
[2023-11-21 08:41] LABS: Creatinine Clr Calc Pharmacy 209.1058
[2023-11-21] MEDS: metoclopramide 5 mg/mL SDV 2 mL 10 MG IVP (08:48)
[2023-11-21] MEDS: citric acid-sodium citrate 30 mL UDC PO (08:49)
[2023-11-21] MEDS: famotidine 20 mg/2 mL INJ IVP (08:49)
[2023-11-21] MEDS: BUPivacaine 0.5% INJ 30 mL INJECTION (08:55)
--- NOTE | 2023-11-21 09:30 | ANE.PACU2 ---
Inpatient post-anesthesia follow up: Airway intact: Yes Vital signs: Temperature 101.6 F Pulse Rate 79 Respiratory Rate 18 Blood Pressure 107/62 Pulse Oximetry 95 Oxygen Delivery Me thod Room Air Oxygen Flow Rate 6 Fraction of Inspir ed Oxygen Hydration adequate: Yes Nausea and vomiting: No Pain level: 1 Mental status: Baseline
[2023-11-21] MEDS: sodium chloride 0.9% 1,000 ML 100 ML IV (09:54)
[2023-11-21] MEDS: acetaminophen 325 mg Tablet 650 MG PO ×2 (09:54→23:40)
--- NOTE | 2023-11-21 10:04 | PC.NURSE ---
Pt returns from surgery. VSS, except fever of 101.6-Tylenol given. Family at bedside.
--- NOTE | 2023-11-21 12:25 | P.PN_ITS ---
Subjective 2 Subjective: No events overnight. Tmax since admission 102.3 Fahrenheit. Underwent I&D with podiatry today. Resting comfortably in bed on examination. Family at bedside. Vitals/I&O/Wt Last Vital Signs Temp 100.1 F H 11/21/23 11:14 Pulse 64 11/21/23 11:14 Resp 14 11/21/23 11:14 BP 101/63 11/21/23 11:14 Pulse Ox 97 11/21/23 11:14 O2 Del Method Room Air 11/21/23 11:14 O2 Flow Rate 6 11/21/23 09:16 11/20/23 11/21/23 11/21/23 22:59 06:59 14:59 Intake Total 311.667 / 361.667 300 / 286.965 8499.333 / 1358.333 Output Total 2 / 2 Balance 311.667 / 361.667 300 / 770.123 8788.333 / 1356.333 Weight last 48 hrs Weight 85.049 kg Weight 85.049 kg Weight 79.379 kg Weight 78.925 kg Physical Exam 2 Narrative: General: No acute distress, AO x3 HEENT: PERRLA, pupils bilaterally equal and reactive Chest: Normal vesicular breath sounds, no added sounds, equal good air entry bilaterally CVS: S1-S2 regular, no murmurs, no tachycardia, no gallops, no rubs Abdomen: Soft, nontender, no organomegaly, bowel sounds present Neuro: No focal deficits, no facial deformity, AO x3, power 5/5 in all limbs Extremity: Left foot: Boggy swelling of the plantar aspect of the foot, localized recent temperature Left hand: Superficial partially healed wound present at the palmar aspect of the hand Missing top of the digits on both hands, contracture present Skin: OTHER: Data 11/21/23 05:31 11/21/23 05:31 Micro: Microbiology 11/20/23 13:35 Blood Culture - Preliminary Blood SPECIMEN COLLECTED 11/20/23 13:28 Blood Culture - Preliminary Blood SPECIMEN COLLECTED A&P Assessment and plan (1) Infected puncture wound of plantar aspect of foot: With concerns of cellulitis and abscess. Cannot rule out hardware infection. No osteomyelitis seen on CT with contrast. Dr. Chacon consulted from the ER. Follow-up blood culture, MRSA swab, OR culture. Correctly continue with IV vancomycin and Zosyn. Discontinue vancomycin if MRSA swab negative. Given significant hardware in the leg patient will most likely need at least 6 weeks of antibiotics depending on the culture and sensitivities. Will consult ID for further recommendations. Wound care as per podiatry team. Tramadol 50 mg every 6 hourly as needed for pain control. Qualifiers: Encounter type: initial encounter Laterality: left Qualified Code(s): S91.332A - Puncture wound without foreign body, left foot, initial encounter; L08.9 - Local infection of the skin and subcutaneous tissue, unspecified (2) Cellulitis of foot, left: (3) Abscess of left foot: (4) Seizure disorder: (5) Muscular dystrophy: Plan Continue home dose of lamotrigine and Keppra. Left hand wound: Appreciate x-ray of the hand. Wound care with Hydrofera Blue for now. Transaminitis: Do not have baseline. For now stable. Check hepatitis panel, HIV. Check gallbladder ultrasound Check urine drug screen. Iron deficiency anemia: Start on oral iron supplementation. Regular diet Heparin for DVT prophylaxis Protonix for PUD prophylaxis Attestations 2 Medical Necessity Statement*: Requires further hospitalization for management of foot abscess post debridement while cultures are awaited in a patient with history of muscular dystrophy, multiple hardware in the leg Diagnoses Infected puncture wound of plantar aspect of foot S91.332A; L08.9 Encounter type: initial encounter Laterality: left Cellulitis of foot, left L03.116 Abscess of left foot L02.612 Seizure disorder G40.909 Muscular dystrophy G71.00
--- NOTE | 2023-11-21 12:28 | USR_ITS ---
PROCEDURE INFORMATION: Exam: US Abdomen, Limited; Right Upper Quadrant Exam date and time: 11/21/2023 5:50 PM Age: 33 years old Clinical indication: Condition or disease; Other: Transamitis, elevated alkaline phosphatase; Additional info: Transamitis, elevated alkaline phosphatase, PT ate lunch, nurse to keep her npo. Will scan later this afternoon. CR TECHNIQUE: Imaging protocol: Real time ultrasound of the abdomen with image documentation. Limited exam focused on the right upper quadrant. COMPARISON: No relevant prior studies available. FINDINGS: Liver: Hepatomegaly measuring up to 18 cm. Gallbladder: No gallstones or evidence of cholecystitis. Gallbladder wall measures approximately 0.3 cm, within normal limits. Biliary ducts: The common bile duct measures 0.5 cm, within normal limits. Pancreas: Visualized pancreas is unremarkable. Right kidney: The right kidney measures approximately 9.6 x 4.5 x 4.2 cm. Aorta: Aorta within normal limits. Inferior vena cava: IVC within normal limits. US/US gall bladder [id number] IMPRESSION: No acute findings.
[2023-11-21 13:07] LABS: Hepatitis A Antibody IgM Non-Reactive (Nonreactive); Hepatitis B Core AB, Total Non-Reactive (Nonreactive); Hepatitis B Surface AB 4.6 (11.5-1000); Hepatitis B Surface Antigen Non-Reactive (Nonreactive); Hepatitis C Virus Antibody Non-Reactive (Nonreactive)
[2023-11-21 13:17] LABS: HIV 1 & 2 Antibody Non-Reactive (Non-Reactiv); HIV 1 & 2 Antigen Non-Reactive (Non-Reactiv)
--- NOTE | 2023-11-21 15:58 | PC.NURSE ---
Pt unable to void since surgery. Bladder scan shows residual of 434ml. Dr. Blevins advised. Awaiting response.
--- NOTE | 2023-11-21 16:17 | PC.NURSE ---
Dr. Blevins would like straight cath. Pt adamantly refuses. Risks explained in detail to pt. She still refuses. Dr. Blevins advised. Will continue to monitor.
[2023-11-21] MEDS: ferrous gluconate 324 mg Tablet PO (17:10)
[2023-11-21 21:44] LABS: Vancomycin Trough 11.7 ug/mL (10-15)
[2023-11-21] MEDS: famotidine 20 mg Tablet PO (22:30)
[2023-11-22] VITALS: BP 128/63; PULSE 78; RESP 16; TEMP 38.4; O2SAT 98
[2023-11-22 04:00] VITALS: BP 121/76; PULSE 16; RESP 16; TEMP 36.7; O2SAT 97
[2023-11-22] MEDS: heparin 5,000 unit/mL INJ 1 mL 5000 UNIT SUBCUT ×2 (05:38→16:52)
[2023-11-22] MEDS: vancomycin 1,000 MG in sodium chloride 0.9% 250 ML 250 MG IV ×3 (05:38→22:53)
[2023-11-22] MEDS: LAMICTAL 25 MG 2 EACH PO (06:40)
--- NOTE | 2023-11-22 06:45 | PC.NURSE ---
Pt stated she has to take her Lamictal and Keppra at 0700 every morning or she will have a seizure. Pt was educated that her Keppra is not scheduled until 0900. Pt got upset and requested that she take the Keppra early. This nurse pulled 0900 dose of Keppra and administered it with her morning dose of Lamictal per pts request.
--- NOTE | 2023-11-22 07:41 | P.PN_ITS ---
Subjective 2 Subjective: Patient seen bedside this a.m., eating breakfast when entering the room. States that the pain at her left foot she was experiencing is improving. Denies any acute events overnight. Patient is afebrile, no leukocytosis. Accompanied by her Father Yaron and her Ruel. Patient denies any subjective nausea, vomiting, fever, chills, shortness of breath or chest pain. Vitals/I&O/Wt Last Vital Signs Temp 98.1 F 11/22/23 04:00 Pulse 16 L 11/22/23 04:00 Resp 16 11/22/23 04:00 BP 121/76 11/22/23 04:00 Pulse Ox 97 11/22/23 04:00 O2 Del Method Room Air 11/22/23 04:00 O2 Flow Rate 6 11/21/23 09:16 11/21/23 11/22/23 11/22/23 22:59 06:59 14:59 Intake Total 2360 / 3718.333 550 / 4268.333 Balance 2360 / 3716.333 550 / 4266.333 Weight last 48 hrs Weight 187 lb 3.2 oz Weight 187 lb 8 oz Weight 187 lb 8 oz Weight 175 lb Weight 174 lb Physical Exam 2 Narrative: GENERAL: Patient is alert and oriented ?3 and in no acute distress. The following is a focused left lower extremity exam. VASCULAR: Dorsalis pedis palpable. Posterior tibial artery palpable. Capillary refill time less than 3 seconds to the distal hallux bilaterally. Calf is supple and nontender proximally and distally. Edema focally to the left lateral midfoot and forefoot. Increased warmth at the left lateral foot. NEUROLOGICAL: Protective sensation intact 0/10 sites, tested with [place] Bety monofilament to bilateral feet. DERMATOLOGICAL: Erythema at the left lateral foot slightly subsiding from line of demarcation marked out yesterday, remains erythematous, sutures are intact without dehiscence, no purulent drainage. Puncture wound to the left plantar foot with quarter inch Hira drain intact draining serosanguineous drainage, no purulence. MUSCULOSKELETAL: No pain to palpation left foot secondary to diminished sensation. No crepitus with soft tissue palpation left foot. No range of motion left subtalar joint and left midfoot joint. Smooth nonpainful range of motion left ankle. Data 11/21/23 05:31 11/21/23 05:31 Micro: Microbiology 07/27/24 09:07 Gram Stain - Final Other Source 11/20/23 13:35 Blood Culture - Preliminary Blood NEGATIVE TO DATE 11/20/23 13:28 Blood Culture - Preliminary Blood NEGATIVE TO DATE A&P Assessment and plan (1) Abscess of left foot: (2) Cellulitis of foot, left: (3) Infected puncture wound of plantar aspect of foot: Qualifiers: Encounter type: initial encounter Laterality: left Qualified Code(s): S91.332A - Puncture wound without foreign body, left foot, initial encounter; L08.9 - Local infection of the skin and subcutaneous tissue, unspecified Plan 33-year-old female with 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 1 day status post I&D left foot date of operation 11/21/2023. Encountered purulent abscess to the left lateral foot intraoperatively. Aerobic and anaerobic surgical wound cultures pending Recommend continuing empiric IV antibiotics Will continue with once daily dressing to monitor clinical response to treatment, once clinical improvement is appreciated will rely on cultures to guide antibiotic therapy outpatient. Podiatry will follow Attestations 2 Medical Necessity Statement*: Requires continued IV antibiotics, monitoring of her left foot wound and cellulitis, surgical wound cultures pending Coding Level of Care Code Acute Code for [facility] Diagnoses Abscess of left foot L02.612 Cellulitis of foot, left L03.116 Infected puncture wound of plantar aspect of foot S91.332A; L08.9 Encounter type: initial encounter Laterality: left
[2023-11-22 07:56] VITALS: BP 125/79; PULSE 85; RESP 16; TEMP 37.4; O2SAT 98
[2023-11-22] MEDS: pantoprazole DR 40 mg Tablet PO (08:02)
[2023-11-22] MEDS: ferrous gluconate 324 mg Tablet PO ×2 (08:02→18:48)
[2023-11-22] MEDS: piperacillin-tazobactam 3.375 GM in sodium chloride 0.9% (plus) 50 ML IV ×2 (08:02→16:51)
[2023-11-22 09:35] LABS: Basophils % 0.7 %; Hematocrit 30.1 % (36-47); Lymphocytes # 0.8 10^3/uL (0.8-4.8); Lymphocytes % 18.7 %; Mean Corpuscular HGB Conc 32.2 g/dL (30-55); Mean Corpuscular Hemoglobin 28.5 pg (27-33); Mean Corpuscular Volume 88.5 fl (85-98); Mean Platelet Volume 10.7 fL (7.4-10.4); Monocytes # 0.4 10^3/uL (0.2-0.9); Monocytes % 8.2 %; Neutrophils # 3.25 10^3/uL (1.8-7.7); Neutrophils % 72.2 %; Nucleated Red Blood Cells % 0 %; Platelet Count 112 10^3/cmm (157-399); Red Cell Distribution Width 15.7 % (12.1-15.1)
[2023-11-22 09:53] LABS: Alanine Aminotransferase 66 U/L (0-33); Albumin Level 3.1 g/dL (3.5-5.2); Alkaline Phosphatase 203 U/L (35-105); Anion Gap 15.6 (5-19); Aspartate Amino Transferase 44 U/L (0-32); Blood Urea Nitrogen 7 mg/dL (6-20); Calcium 7.7 mg/dL (8.5-10.5); Carbon Dioxide 20 mmol/L (22-29); Chloride 105 mmol/L (98-107); Creatinine Clr Calc Pharmacy 167.1475; Globulin 2.8 g/dL (1.3-4.6); Glomerular Filtration Rate 141.2 mL/min (90-130); Glucose 105 mg/dL (65-115); Osmolality Calculated 282 mOsm/kg (285-295); Potassium 3.6 mmol/L (3.5-5.1); Sodium 137 mmol/L (136-145); Total Bilirubin 0.3 mg/dL (0.15-1.2); Total Protein 5.9 g/dL (6.6-8.7)
[2023-11-22 12:00] VITALS: BP 111/71; PULSE 81; RESP 16; TEMP 37.6; O2SAT 96
[2023-11-22 16:00] VITALS: BP 116/72; PULSE 79; RESP 16; TEMP 37.6; O2SAT 97
--- NOTE | 2023-11-22 16:04 | P.PN_ITS ---
Subjective 2 Subjective: No acute vents overnight. Patient states pain is a lot better. Tmax 101.8 Fahrenheit overnight. Otherwise hemodynamically stable. Vitals/I&O/Wt Last Vital Signs Temp 99.7 F H 11/22/23 12:00 Pulse 81 11/22/23 12:00 Resp 16 11/22/23 12:00 BP 111/71 11/22/23 12:00 Pulse Ox 96 11/22/23 12:00 O2 Del Method Room Air 11/22/23 12:00 O2 Flow Rate 6 11/21/23 09:16 11/22/23 11/22/23 11/22/23 06:59 14:59 22:59 Intake Total 550 / 4268.333 650 / 650 Output Total 200 / 200 Balance 550 / 4266.333 450 / 450 Weight last 48 hrs Weight 84.912 kg Weight 85.049 kg Weight 85.049 kg Weight 79.379 kg Physical Exam 2 Narrative: General: No acute distress, AO x3 HEENT: PERRLA, pupils bilaterally equal and reactive Chest: Normal vesicular breath sounds, no added sounds, equal good air entry bilaterally CVS: S1-S2 regular, no murmurs, no tachycardia, no gallops, no rubs Abdomen: Soft, nontender, no organomegaly, bowel sounds present Neuro: No focal deficits, no facial deformity, AO x3, power 5/5 in all limbs Extremity: Left foot: Boggy swelling of the plantar aspect of the foot, localized recent temperature Left hand: Superficial partially healed wound present at the palmar aspect of the hand Missing top of the digits on both hands, contracture present Skin: OTHER: Data 11/22/23 09:25 11/22/23 09:25 Micro: Microbiology 11/21/23 09:07 Gram Stain - Final Other Source Wound Culture - Preliminary Coag positive Staphylococcus 11/20/23 13:35 Blood Culture - Preliminary Blood NEGATIVE TO DATE 11/20/23 13:28 Blood Culture - Preliminary Blood NEGATIVE TO DATE A&P Assessment and plan (1) Infected puncture wound of plantar aspect of foot: With concerns of cellulitis and abscess. Cannot rule out hardware infection. No osteomyelitis seen on CT with contrast. Dr. Chacon consulted from the ER. Follow-up blood culture, MRSA swab, OR culture. Correctly continue with IV vancomycin and Zosyn. Discontinue vancomycin if MRSA swab negative. Given significant hardware in the leg patient will most likely need at least 6 weeks of antibiotics depending on the culture and sensitivities. Will consult ID for further recommendations once cultures are available. Wound care as per podiatry team. Tramadol 50 mg every 6 hourly as needed for pain control. Patient continues to have spike of fever. Cannot rule out in setting of inflammation. Start on Motrin every 8 hourly. Renal function stable. Will continue to monitor. Qualifiers: Encounter type: initial encounter Laterality: left Qualified Code(s): S91.332A - Puncture wound without foreign body, left foot, initial encounter; L08.9 - Local infection of the skin and subcutaneous tissue, unspecified (2) Cellulitis of foot, left: (3) Abscess of left foot: (4) Seizure disorder: (5) Muscular dystrophy: Plan Continue home dose of lamotrigine and Keppra. Left hand wound: Appreciate x-ray of the hand. Wound care with Hydrofera Blue for now. Transaminitis: Do not have baseline. For now stable. Negative hepatitis panel, HIV, gallbladder ultrasound. Check urine drug screen. Iron deficiency anemia: Start on oral iron supplementation. Regular diet Heparin for DVT prophylaxis Protonix for PUD prophylaxis Plan for the day: Continue follow-up cultures. Continue with wound care as per podiatry team. Continue with empiric IV vancomycin and Zosyn for now. Consult ID once culture specification is available. Patient will most likely need 6 weeks of IV antibiotics given concerns for extensive hardware. Attestations 2 Medical Necessity Statement*: Requires further hospitalization for management of foot abscess post debridement while outpatient antibiotics are set up Diagnoses Infected puncture wound of plantar aspect of foot S91.332A; L08.9 Encounter type: initial encounter Laterality: left Cellulitis of foot, left L03.116 Abscess of left foot L02.612 Seizure disorder G40.909 Muscular dystrophy G71.00
[2023-11-22] MEDS: ibuprofen 200 mg Tablet PO ×2 (16:51→20:55)
[2023-11-22] MEDS: famotidine 20 mg Tablet PO (18:48)
[2023-11-22 19:43] VITALS: BP 111/70; PULSE 77; RESP 16; TEMP 37.5; O2SAT 97
[2023-11-22 22:26] LABS: Vancomycin Trough 11.7 ug/mL (10-15)
[2023-11-23] VITALS (7 sets, daily range): BP systolic 111–123; BP diastolic 64–81; PULSE 63–84; RESP 16–18; TEMP 36.7–39.3; O2SAT 97–100
[2023-11-23 05:11] LABS: Basophils % 0.3 %; Eosinophils % 0.5 %; Hematocrit 32.7 % (36-47); Lymphocytes # 0.9 10^3/uL (0.8-4.8); Lymphocytes % 22.5 %; Mean Corpuscular HGB Conc 31.8 g/dL (30-55); Mean Corpuscular Hemoglobin 28.8 pg (27-33); Mean Corpuscular Volume 90.6 fl (85-98); Monocytes # 0.4 10^3/uL (0.2-0.9); Monocytes % 10.6 %; Neutrophils # 2.48 10^3/uL (1.8-7.7); Neutrophils % 65.8 %; Nucleated Red Blood Cells % 0 %; Platelet Count 105 10^3/cmm (157-399); Red Blood Count 3.61 10^6/uL (3.85-5.65); Red Cell Distribution Width 15.9 % (12.1-15.1); White Blood Count 3.77 10^3/uL (3.29-11.43)
[2023-11-23 05:28] LABS: Alanine Aminotransferase 73 U/L (0-33); Albumin Level 3.3 g/dL (3.5-5.2); Alkaline Phosphatase 243 U/L (35-105); Anion Gap 13.1 (5-19); Aspartate Amino Transferase 50 U/L (0-32); Blood Urea Nitrogen 10 mg/dL (6-20); Calcium 8.2 mg/dL (8.5-10.5); Carbon Dioxide 22 mmol/L (22-29); Chloride 108 mmol/L (98-107); Creatinine Clr Calc Pharmacy 167.1475; Glomerular Filtration Rate 141.2 mL/min (90-130); Glucose 92 mg/dL (65-115); Osmolality Calculated 287 mOsm/kg (285-295); Potassium 4.1 mmol/L (3.5-5.1); Sodium 139 mmol/L (136-145); Total Bilirubin 0.3 mg/dL (0.15-1.2); Total Protein 6.3 g/dL (6.6-8.7)
[2023-11-23] MEDS: vancomycin 1,000 MG in sodium chloride 0.9% 250 ML 250 MG IV ×3 (06:38→22:58)
[2023-11-23] MEDS: heparin 5,000 unit/mL INJ 1 mL 5000 UNIT SUBCUT ×2 (06:45→17:53)
[2023-11-23] MEDS: LAMICTAL 25 MG 2 EACH PO (06:50)
--- NOTE | 2023-11-23 07:18 | P.PN_ITS ---
Subjective 2 Subjective: Patient seen bedside this a.m., denies any acute events overnight. Reports improved pain at the left foot. States she is having some issues with her hand wound, left hand has been draining clear drainage requiring 2 dressing changes overnight. Patient denies any subjective nausea, vomiting, fever, chills, shortness of breath or chest pain. Vitals/I&O/Wt Last Vital Signs Temp 98.6 F 11/23/23 04:00 Pulse 71 11/23/23 04:00 Resp 16 11/23/23 04:00 BP 111/74 11/23/23 04:00 Pulse Ox 97 11/23/23 04:00 O2 Del Method Room Air 11/23/23 04:00 O2 Flow Rate 6 11/21/23 09:16 11/22/23 11/23/23 11/23/23 22:59 06:59 14:59 Intake Total 780 / 1430 780 / 2210 Output Total 500 / 700 600 / 1300 Balance 280 / 730 180 / 910 Weight last 48 hrs Weight 186 lb 9.6 oz Weight 187 lb 3.2 oz Weight 187 lb 8 oz Physical Exam 2 Narrative: GENERAL: Patient is alert and oriented ?3 and in no acute distress. The following is a focused left lower extremity exam. VASCULAR: Dorsalis pedis palpable. Posterior tibial artery palpable. Capillary refill time less than 3 seconds to the distal hallux bilaterally. Calf is supple and nontender proximally and distally. Edema focally to the left lateral midfoot and forefoot. Increased warmth at the left lateral foot. NEUROLOGICAL: Protective sensation intact 0/10 sites, tested with [place] Bety monofilament to bilateral feet. DERMATOLOGICAL: Erythema at the left lateral foot slightly subsiding from skin marker, remains erythematous, sutures are intact without dehiscence, no purulent drainage. Puncture wound to the left plantar foot with quarter inch Wisner drain intact draining serosanguineous drainage, no purulence. MUSCULOSKELETAL: No pain to palpation left foot secondary to diminished sensation. No crepitus with soft tissue palpation left foot. No range of motion left subtalar joint and left midfoot joint. Smooth nonpainful range of motion left ankle. Data 11/23/23 04:47 11/23/23 04:47 Micro: Microbiology 11/21/23 09:07 Anaerobic Culture - Preliminary Foot - #1 11/21/23 09:07 Gram Stain - Final Other Source Wound Culture - Preliminary Coag positive Staphylococcus A&P Assessment and plan (1) Abscess of left foot: (2) Cellulitis of foot, left: (3) Infected puncture wound of plantar aspect of foot: Qualifiers: Encounter type: initial encounter Laterality: left Qualified Code(s): S91.332A - Puncture wound without foreign body, left foot, initial encounter; L08.9 - Local infection of the skin and subcutaneous tissue, unspecified Plan 33-year-old female with 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 2 days status post I&D left foot date of operation 11/21/2023. Encountered purulent abscess to the left lateral foot intraoperatively. Aerobic and anaerobic surgical wound cultures pending Recommend continuing empiric IV antibiotics Will continue with once daily dressing to monitor clinical response to treatment, once clinical improvement is appreciated will rely on cultures to guide antibiotic therapy outpatient. Podiatry will follow Attestations 2 Medical Necessity Statement*: Requires continued IV antibiotics, monitoring of her left foot wound and cellulitis, surgical wound cultures pending Coding Level of Care Code Acute Code for [facility] Diagnoses Abscess of left foot L02.612 Cellulitis of foot, left L03.116 Infected puncture wound of plantar aspect of foot S91.332A; L08.9 Encounter type: initial encounter Laterality: left
[2023-11-23] MEDS: ferrous gluconate 324 mg Tablet PO ×2 (07:34→17:54)
[2023-11-23] MEDS: acetaminophen 325 mg Tablet 650 MG PO ×2 (07:34→23:40)
[2023-11-23] MEDS: ibuprofen 200 mg Tablet PO ×3 (07:35→20:10)
[2023-11-23] MEDS: pantoprazole DR 40 mg Tablet PO (07:35)
[2023-11-23] MEDS: piperacillin-tazobactam 3.375 GM in sodium chloride 0.9% (plus) 50 ML IV ×3 (08:03→16:07)
--- NOTE | 2023-11-23 12:42 | PM.PN ---
Subjective Subjective: She has been having some pain in her left foot although it overall is better and has been responding to ibuprofen. She otherwise also requests to have her seizure medications scheduled at 7 AM and 7 PM, discussed that 7 is a less safe time due to shift change. Patient and want to try to aim for 6:30 AM and p.m. Discussed with pharmacist. She tells me otherwise her dressing has been changed by podiatry this morning, and was told that the wound is showing improvement. She did have a fever earlier today but it had subsided. Vitals/I&O/Wt Last Vital Signs Temp 98.7 F 11/23/23 11:41 Pulse 75 11/23/23 11:41 Resp 18 11/23/23 11:41 BP 114/64 11/23/23 11:41 Pulse Ox 98 11/23/23 11:41 O2 Del Method Room Air 11/23/23 11:41 O2 Flow Rate 6 11/21/23 09:16 11/22/23 11/23/23 11/23/23 22:59 06:59 14:59 Intake Total 780 / 1430 780 / 2210 540 / 540 Output Total 500 / 700 600 / 1300 Balance 280 / 730 180 / 910 540 / 540 Weight last 48 hrs Weight 84.64 kg Weight 84.912 kg Physical Exam Narrative: at bedside. Const: COMMON NORMALS: patient oriented x3 and alert GENERAL APPEARANCE: cooperative ORIENTATION/CONSCIOUSNESS: Yes awake HENMT: COMMON NORMALS: oropharynx normal Neck/C-Spine: COMMON NORMALS: no JVD Resp: COMMON NORMALS: normal respiratory effort and clear to auscultation bilaterally AUSCULTATION: clear to auscultation bilaterally Cardio: COMMON NORMALS: no JVD, regular rhythm, S1 normal heart sound present, S2 normal heart sound present and No murmurs present (Cardio) RHYTHM: regular rhythm HEART SOUNDS: S1 normal heart sound present and S2 normal heart sound present GI: COMMON NORMALS: Normal to inspection, nondistended, normoactive bowel sounds present, Soft to palpation and non-tender PALPATION: Yes Soft to palpation Extremity: NARRATIVE EXTREMITY EXAM: LUE and LLE fresh dressing without strikethrough, bleeding. No erythema extending beyond the dressing. Neuro: COMMON NORMALS: patient oriented x3 and moves all extremities SENSORIUM/ORIENTATION: Yes alert OTHER: Peripheral neuropathy. Data 11/23/23 04:47 11/23/23 04:47 Micro: Microbiology 11/21/23 09:07 Anaerobic Culture - Preliminary Foot - #1 11/21/23 09:07 Gram Stain - Final Other Source Wound Culture - Preliminary Coag positive Staphylococcus A&P Assessment and plan (1) Infected puncture wound of plantar aspect of foot: Reviewed vitals, CBC, CMP, podiatry note, discussed with nursing, shoe parts caser. Wound cultures pending, so far coagulase positive staph, pending culture. Follow-up. Blood culture so far negative on review. Serosanguineous drainage from foot drain. Continue IV antibiotics. Follow-up culture. Patient and have discussed plans for longer course of antibiotics and anticipate an extended course of therapy. Correctly continue with IV vancomycin and Zosyn. Monitor for risk of kidney injury with antibiotic combination. Given significant hardware in the leg patient will most likely need at least 6 weeks of antibiotics depending on the culture and sensitivities. Will consult ID for further recommendations once cultures are available. Wound care as per podiatry team. Renewed tramadol 50 mg every 6 hourly as needed for pain control. Patient continues to have spike of fever. Cannot rule out in setting of inflammation. Started on Motrin every 8 hourly. Renal function stable. Will continue to monitor. Qualifiers: Encounter type: initial encounter Laterality: left Qualified Code(s): S91.332A - Puncture wound without foreign body, left foot, initial encounter; L08.9 - Local infection of the skin and subcutaneous tissue, unspecified (2) Cellulitis of foot, left: (3) Abscess of left foot: (4) Seizure disorder: (5) Muscular dystrophy: Plan Continue home dose of lamotrigine and Keppra. Discussed with pharmacist to schedule every 12 hours at 630. Left hand wound: Appreciate x-ray of the hand. Wound care with Hydrofera Blue for now. Requested to take down dressing so I can reassess the wound. Transaminitis: Do not have baseline. For now stable. Negative hepatitis panel, HIV, gallbladder ultrasound. Check urine drug screen. Iron deficiency anemia: Start on oral iron supplementation. Regular diet Heparin for DVT prophylaxis Protonix for PUD prophylaxis Attestations Medical Necessity Statement*: Continue admission for assessment management of foot abscess with underlying hardware, staphylococcal infection, pending further debridement and reassessment of the wound, culture sent arrangements for continued antibiotic therapy depending on the above. and High MDM includes amount and/or complexity of data reviewed/ordered [ previous or external records, resulted lab(s)/test(s), ordered lab(s)/test(s) and other healthcare professional discussion] and described risk of complication, morbidity or mortality of management as documented Diagnoses Infected puncture wound of plantar aspect of foot S91.332A; L08.9 Encounter type: initial encounter Laterality: left Cellulitis of foot, left L03.116 Abscess of left foot L02.612 Seizure disorder G40.909 Muscular dystrophy G71.00
--- NOTE | 2023-11-23 13:06 | MRR_ITS ---
PROCEDURE INFORMATION: Exam: MR Left Lower Extremity Other Than Joint Without and With Contrast; Foot Exam date and time: 11/23/2023 4:28 PM Age: 33 years old Clinical indication: Other: Pain/fever; Prior surgery; Surgery date: Post-operative (0-2 days); Surgery type: Hardware in foot/tib-fib; Additional info: Prior abscess, hardware, fevers spikes, despite drainage. Assess for any signs of deeper or hardware TECHNIQUE: Imaging protocol: Magnetic resonance imaging of the left lower extremity without and with contrast. Exam focused on the foot. Contrast material: MULTIHANCE; Contrast volume: 19 ml; Contrast route: INTRAVENOUS (IV); COMPARISON: CT foot LT w con [id number] 11/20/2023 2:09 PM FINDINGS: There has been prior subtalar, talonavicular and calcaneocuboid arthrodesis with solid osseous fusion. No evidence of osseous erosion to suggest osteomyelitis. Small tibiotalar joint effusion without evidence of septic joint. There is superficial soft tissue edema of the midfoot/forefoot, nonspecific and possibly reflecting cellulitis in the proper clinical setting. No discrete fluid collection to suggest abscess or hematoma. There is chronic deformity of the proximal 4th and 5th metatarsals. No evidence of acute fracture. There is diffuse bony demineralization compatible with osteopenia or osteoporosis. Partially visualized tibial intramedullary kevin. MR/MR foot LT wo/w con [id number] IMPRESSION: 1. No evidence of osteomyelitis or fluid collection to suggest abscess.
--- NOTE | 2023-11-23 14:53 | PICC.NOTE ---
Referred to vascular access nurse for IV access. US guided 20 gauge IV started in left forearm x 1 attempt. Flushes easily with good blood return. Secured with venagaurd. IV vancomycin resumed. Report given to bedside nurseGoldy.
[2023-11-23] MEDS: gadobenate dimeglumine 20 mL vial IV (17:02)
[2023-11-23] MEDS: famotidine 20 mg Tablet PO (20:10)
[2023-11-23 21:43] LABS: Vancomycin Trough 16.7 ug/mL (10-15)
[2023-11-24] VITALS (8 sets, daily range): BP systolic 98–128; BP diastolic 61–81; PULSE 63–80; RESP 17–18; TEMP 36.9–38.9; O2SAT 96–100
[2023-11-24] MEDS: piperacillin-tazobactam 3.375 GM in sodium chloride 0.9% (plus) 50 ML IV ×2 (00:15→08:50)
[2023-11-24] MEDS: LAMICTAL 25 MG 2 EACH PO (06:35)
[2023-11-24] MEDS: vancomycin 1,000 MG in sodium chloride 0.9% 250 ML 250 MG IV ×3 (06:35→22:27)
[2023-11-24] MEDS: heparin 5,000 unit/mL INJ 1 mL 5000 UNIT SUBCUT (06:35)
--- NOTE | 2023-11-24 07:05 | PM.PN ---
Subjective Subjective: Patient seen bedside this morning, Tmax 101.6 overnight, reports improved pain at the left foot. Patient denies any subjective nausea, vomiting, fever, chills, shortness of breath or chest pain. Her Ruel and her Father Yaron are bedside this a.m. Vitals/I&O/Wt Last Vital Signs Temp 98.4 F 11/24/23 04:00 Pulse 63 11/24/23 04:00 Resp 18 11/24/23 04:00 BP 128/74 11/24/23 04:00 Pulse Ox 96 11/24/23 04:00 O2 Del Method Room Air 11/24/23 04:00 O2 Flow Rate 6 11/21/23 09:16 11/23/23 11/24/23 11/24/23 22:59 06:59 14:59 Intake Total 763.333 / 1440.000 780 / 2220.000 Output Total 500 / 500 1500 / 2000 Balance 263.333 / 940.000 -720 / 220.000 Weight last 48 hrs Weight 190 lb Weight 190 lb 3 oz Weight 186 lb 9.6 oz Physical Exam Narrative: GENERAL: Patient is alert and oriented ?3 and in no acute distress. The following is a focused left lower extremity exam. VASCULAR: Dorsalis pedis palpable. Posterior tibial artery palpable. Capillary refill time less than 3 seconds to the distal hallux bilaterally. Calf is supple and nontender proximally and distally. Edema focally to the left lateral midfoot and forefoot. Increased warmth at the left lateral foot. NEUROLOGICAL: Protective sensation intact 0/10 sites, tested with [place] Bety monofilament to bilateral feet. DERMATOLOGICAL: Erythema at the left lateral foot slightly subsiding from skin marker, remains erythematous, sutures are intact without dehiscence, no purulent drainage. Puncture wound to the left plantar foot with quarter inch Hira drain intact draining serosanguineous drainage, no purulence. MUSCULOSKELETAL: No pain to palpation left foot secondary to diminished sensation. No crepitus with soft tissue palpation left foot. No range of motion left subtalar joint and left midfoot joint. Smooth nonpainful range of motion left ankle. Data 11/23/23 04:47 11/23/23 04:47 Micro: Microbiology 11/21/23 09:07 Anaerobic Culture - Preliminary Foot - #1 11/21/23 09:07 Gram Stain - Final Other Source Wound Culture - Final Methicillin Resis Staph Aureus A&P Assessment and plan (1) Abscess of left foot: (2) Cellulitis of foot, left: (3) Infected puncture wound of plantar aspect of foot: Qualifiers: Encounter type: initial encounter Laterality: left Qualified Code(s): S91.332A - Puncture wound without foreign body, left foot, initial encounter; L08.9 - Local infection of the skin and subcutaneous tissue, unspecified Plan 33-year-old female with 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 3 days status post I&D left foot date of operation 11/21/2023. Encountered purulent abscess to the left lateral foot intraoperatively. Surgical culture significant for MRSA Continue IV antibiotics, recommend 14 days of oral antibiotics at discharge with outpatient follow-up in podiatry clinic. Clinical improvement of the left foot, significant improvement to cellulitis and edema, given her clinical improvement to the left foot, MRI negative of abscess or osteomyelitis left foot is less likely to be source of fever. Podiatry will follow Attestations Medical Necessity Statement*: Left foot abscess with cellulitis Coding Level of Care Code Acute Code for Chg Fwd Diagnoses Abscess of left foot L02.612 Cellulitis of foot, left L03.116 Infected puncture wound of plantar aspect of foot S91.332A; L08.9 Encounter type: initial encounter Laterality: left
[2023-11-24] MEDS: ferrous gluconate 324 mg Tablet PO ×2 (07:51→18:33)
[2023-11-24] MEDS: ibuprofen 200 mg Tablet PO (07:51)
[2023-11-24] MEDS: pantoprazole DR 40 mg Tablet PO (07:51)
[2023-11-24 11:12] LABS: Basophils % 0.3 %; Eosinophils % 0.3 %; Hematocrit 29.5 % (36-47); Lymphocytes # 1.1 10^3/uL (0.8-4.8); Mean Corpuscular HGB Conc 32.5 g/dL (30-55); Mean Corpuscular Hemoglobin 28.8 pg (27-33); Mean Corpuscular Volume 88.6 fl (85-98); Mean Platelet Volume 11.1 fL (7.4-10.4); Monocytes # 0.3 10^3/uL (0.2-0.9); Monocytes % 7.8 %; Neutrophils # 2.08 10^3/uL (1.8-7.7); Neutrophils % 60.3 %; Nucleated Red Blood Cells % 0 %; Platelet Count 100 10^3/cmm (157-399); Red Blood Count 3.33 10^6/uL (3.85-5.65); Red Cell Distribution Width 15.6 % (12.1-15.1); White Blood Count 3.45 10^3/uL (3.29-11.43)
[2023-11-24 11:34] LABS: Alanine Aminotransferase 67 U/L (0-33); Albumin Level 3.1 g/dL (3.5-5.2); Alkaline Phosphatase 269 U/L (35-105); Anion Gap 13.9 (5-19); Aspartate Amino Transferase 38 U/L (0-32); Blood Urea Nitrogen 7 mg/dL (6-20); Carbon Dioxide 21 mmol/L (22-29); Chloride 109 mmol/L (98-107); Creatinine Clr Calc Pharmacy 210.5249; Globulin 3.1 g/dL (1.3-4.6); Glomerular Filtration Rate 182.7 mL/min (90-130); Glucose 91 mg/dL (65-115); Osmolality Calculated 288 mOsm/kg (285-295); Potassium 3.9 mmol/L (3.5-5.1); Sodium 140 mmol/L (136-145); Total Bilirubin 0.3 mg/dL (0.15-1.2); Total Protein 6.2 g/dL (6.6-8.7)
--- NOTE | 2023-11-24 11:43 | P.PN_ITS ---
Subjective 2 Subjective: She is having some heartburn today. She states otherwise is doing okay. Her foot has been improving. No additional changes with her left hand. Denies any trouble breathing, no nausea vomiting or diarrhea. No additional new symptoms. Vitals/I&O/Wt Last Vital Signs Temp 98.8 F 11/24/23 11:13 Pulse 64 11/24/23 11:13 Resp 17 11/24/23 11:13 BP 115/78 11/24/23 11:13 Pulse Ox 100 11/24/23 11:13 O2 Del Method Room Air 11/24/23 11:13 O2 Flow Rate 6 11/21/23 09:16 11/23/23 11/24/23 11/24/23 22:59 06:59 14:59 Intake Total 763.333 / 1440.000 780 / 2220.000 300 / 300 Output Total 500 / 500 1500 / 2000 Balance 263.333 / 940.000 -720 / 220.000 300 / 300 Weight last 48 hrs Weight 86.183 kg Weight 86.268 kg Weight 84.64 kg Physical Exam 2 Narrative: at bedside. Const: COMMON NORMALS: patient oriented x3 and alert GENERAL APPEARANCE: c ooperative ORIENTATION/CONSCIOUSNESS: Yes awake HENMT: COMMON NORMALS: oropharynx normal Neck/C-Spine: COMMON NORMALS: no JVD Resp: COMMON NORMALS: normal respiratory effort and clear to auscultation bilaterally AUSCULTATION: clear to auscultation bilaterally Cardio: COMMON NORMALS: no JVD, regular rhythm, S1 normal heart sound present, S2 normal heart sound present and No murmurs present (Cardio) RHYTHM: regular rhythm HEART SOUNDS: S1 normal heart sound present and S2 normal heart sound present GI: COMMON NORMALS: Normal to inspection, nondistended, normoactive bowel sounds present, Soft to palpation and non-tender PALPATION: Yes Soft to palpation Extremity: NARRATIVE EXTREMITY EXAM: LUE and LLE dressing, small amount of serous strikethrough. Neuro: COMMON NORMALS: patient oriented x3 and moves all extremities S ENSORIUM/ORIENTATION: Yes alert Data 11/24/23 10:42 11/24/23 10:42 Micro: Microbiology 11/21/23 09:07 Anaerobic Culture - Preliminary Foot - #1 11/21/23 09:07 Gram Stain - Final Other Source Wound Culture - Final Methicillin Resis Staph Aureus A&P Assessment and plan (1) Infected puncture wound of plantar aspect of foot: Reviewed vitals, electrolytes, renal function, AST, ALT, alk phos, T. bili, Vanco trough, fluid MRI, gallbladder ultrasound. Discussed with her and her family. Discussed with solution spec. No evidence of abscess or additional deeper infection, but hardware in place on the MRI. Discussed with him cannot 100% exclude that there may not be small focus of infection on the hardware, but in general the imaging was not suggestive of significant infected collection. Per discussion with podiatry the foot appearance has been improving as well, not suggestive of a recurrent or unresponsive process. On review of wound culture does have MRSA. She also reports prior MRSA infection. With recurrent fever discussed concern regarding possibility of difficult to treat focus, risk of recurrence with MRSA. Discussed additional assessment of the left hand which although does not appear to have surrounding cellulitis, no purulent drainage, does have some serous drainage, granulation tissue at the base with some maceration around it, we discussed additional imaging with MRI to which they are agreeable. Otherwise review gallbladder ultrasound not suggestive of hepatobiliary infection. We discussed with her and family consideration of longer course of antibiotic due to risk of infection persistence or recurrence, as well as follow-up with infectious disease provider. Additional consideration could be possibly fever related to medication, possibly Zosyn with antibiotic fever. Additionally obtain LDH, haptoglobin, reticulocyte, peripheral smear to assess for possible hemolysis. Will also request HIT antibody, ANIVAL, although low probability of HIT. Will stop heparin. Continue SCD. Discussed also with infectious disease specialist. Appreciate consultation. Will additionally repeat blood culture, and add further workup, obtain chest x- ray, respiratory viral panel, repeat UA, obtain tick panel, stop Zosyn. Correctly continue with IV vancomycin. Monitor for risk of kidney injury with antibiotic combination. Given significant hardware in the leg patient will most likely need at least 6 weeks of antibiotics depending on the culture and sensitivities. Will consult ID for further recommendations once cultures are available. Wound care as per podiatry team. Renewed tramadol 50 mg every 6 hourly as needed for pain control. Patient continues to have spike of fever. Cannot rule out in setting of inflammation. Started on Motrin every 8 hourly. Renal function stable. Will continue to monitor. Qualifiers: Encounter type: initial encounter Laterality: left Qualified Code(s): S91.332A - Puncture wound without foreign body, left foot, initial encounter; L08.9 - Local infection of the skin and subcutaneous tissue, unspecified (2) Cellulitis of foot, left: (3) Abscess of left foot: (4) Seizure disorder: (5) Muscular dystrophy: Plan Continue home dose of lamotrigine and Keppra. Discussed with pharmacist to schedule every 12 hours at 630. Heartburn: She is having heartburn morning. Continue PPI. Will change ibuprofen to as needed. Left hand wound: Appreciate x-ray of the hand. As above, wound care changed to alginate dressing, to be changed to twice daily with some granulation tissue, maceration around the edges. Additional assessment of left hand with MRI as per above discussion. Transaminitis: Reviewed right upper quadrant ultrasound. Unremarkable. Check tick panel. Do not have baseline. For now stable. Negative hepatitis panel, HIV, gallbladder ultrasound. Check urine drug screen. Iron deficiency anemia: on oral iron supplementation. Regular diet SCD for DVT prophylaxis, hold heparin Protonix for PUD prophylaxis Attestations 2 Medical Necessity Statement*: Continue admission for assessment management of foot abscess with underlying hardware, MRSA infection, pending further debridement and reassessment of the wound, culture sent arrangements for continued antibiotic therapy depending on the above. Diagnoses Infected puncture wound of plantar aspect of foot S91.332A; L08.9 Encounter type: initial encounter Laterality: left Cellulitis of foot, left L03.116 Abscess of left foot L02.612 Seizure disorder G40.909 Muscular dystrophy G71.00
--- NOTE | 2023-11-24 11:59 | XRR_ITS ---
PROCEDURE INFORMATION: Exam: XR Chest Exam date and time: 11/24/2023 12:37 PM Age: 33 years old Clinical indication: Fever TECHNIQUE: Imaging protocol: Radiologic exam of the chest. Views: 1 view. COMPARISON: No relevant prior studies available. FINDINGS: Lungs: Small amount of pneumonitis right lower lung. Otherwise, unremarkable. Pleural spaces: Unremarkable. No pleural effusion. No pneumothorax. Heart/Mediastinum: Unremarkable. No cardiomegaly. Bones/joints: Unremarkable. XR/XR chest 1V portable [id number] IMPRESSION: Small amount of pneumonitis right lower lung.
[2023-11-24 12:33] LABS: Hematocrit 29.2 % (36-47); Retic Production Index 0.37; Reticulocyte % 0.5 % (0.5-2.0)
[2023-11-24 13:26] LABS: LAB Peripheral Smear Sent for Review
[2023-11-24 14:39] LABS: Charge for UA Resulting for Rev
[2023-11-24 14:47] LABS: Bilirubin Urine Negative (Negative); Blood Urine Negative (Negative); Glucose Urine UA Negative (Normal); Ketones Urine Negative (Negative); Leukocyte Esterase Urine Negative (Negative); Nitrate Urine Negative (Negative); Protein Urine Negative (Negative); Specific Gravity, Urine 1.017 (1.005-1.030); Urine Appearance Clear (CLEAR); Urine Color Yellow (Yellow); pH Urine 5.5 (5-7)
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
[2023-11-24 17:28] LABS: Amphetamines Screen Urine Negative (Negative); Barbiturates Screen Urine Negative (Negative); Benzodiazepines Screen Urine Negative (Negative); Cocaine Screen Urine Negative (Negative); Opiate Screen Urine Negative (Negative); PCP Screen Urine Negative (Negative); THC Screen Urine Negative (Negative)
[2023-11-24] MEDS: acetaminophen 325 mg Tablet 650 MG PO (20:21)
[2023-11-24 22:34] LABS: Adenovirus Not Detected (NOT DETECT); Chlamydia Pneumoniae Not Detected (NOT DETECT); Coronavirus 229E,HKU1,NL63,OC4 Not Detected (NOT DETECT); Human Metapneumovirus Not Detected (NOT DETECT); Human Rhinovirus/Enterovirus Not Detected (NOT DETECT); Influenza A Not Detected (NOT DETECT); Influenza A H1 Not Detected (NOT DETECT); Influenza A H1-2009 Not Detected (NOT DETECT); Influenza A H3 Not Detected (NOT DETECT); Influenza B Not Detected (NOT DETECT); Mycoplasma Pneumoniae Not Detected (NOT DETECT); Parainfluenza Virus Type 1 Not Detected (NOT DETECT); Parainfluenza Virus Type 2 Not Detected (NOT DETECT); Parainfluenza Virus Type 3 Not Detected (NOT DETECT); Parainfluenza Virus Type 4 Not Detected (NOT DETECT); Respiratory Syncytial Virus A Not Detected (NOT DETECT); Respiratory Syncytial Virus B Not Detected (NOT DETECT); SARS-COV-2 Not Detected (NOT DETECT)
[2023-11-25] VITALS: BP 105/65; PULSE 75; RESP 17; TEMP 37.1; O2SAT 99
[2023-11-25 04:00] VITALS: BP 123/75; PULSE 75; RESP 16; TEMP 37.9; O2SAT 100
[2023-11-25 05:17] LABS: Basophils % 0.3 %; Eosinophils % 0.3 %; Hematocrit 31.2 % (36-47); Mean Corpuscular HGB Conc 31.7 g/dL (30-55); Mean Corpuscular Hemoglobin 28.2 pg (27-33); Mean Corpuscular Volume 88.9 fl (85-98); Mean Platelet Volume 11.1 fL (7.4-10.4); Monocytes # 0.2 10^3/uL (0.2-0.9); Neutrophils # 2.13 10^3/uL (1.8-7.7); Neutrophils % 62.1 %; Nucleated Red Blood Cells % 0 %; Platelet Count 102 10^3/cmm (157-399); Red Blood Count 3.51 10^6/uL (3.85-5.65); Red Cell Distribution Width 15.5 % (12.1-15.1); White Blood Count 3.43 10^3/uL (3.29-11.43)
[2023-11-25 05:37] LABS: Alanine Aminotransferase 61 U/L (0-33); Albumin Level 3.3 g/dL (3.5-5.2); Alkaline Phosphatase 300 U/L (35-105); Anion Gap 14.5 (5-19); Aspartate Amino Transferase 35 U/L (0-32); Blood Urea Nitrogen 7 mg/dL (6-20); Calcium 8.2 mg/dL (8.5-10.5); Carbon Dioxide 23 mmol/L (22-29); Chloride 108 mmol/L (98-107); Creatinine Clr Calc Pharmacy 207.7931; Glomerular Filtration Rate 182.7 mL/min (90-130); Glucose 95 mg/dL (65-115); Osmolality Calculated 290 mOsm/kg (285-295); Potassium 4.5 mmol/L (3.5-5.1); Sodium 141 mmol/L (136-145); Total Bilirubin 0.3 mg/dL (0.15-1.2); Total Protein 6.3 g/dL (6.6-8.7)
[2023-11-25 05:38] LABS: Vancomycin Trough 16.5 ug/mL (10-15)
[2023-11-25] MEDS: vancomycin 1,000 MG in sodium chloride 0.9% 250 ML 250 MG IV ×3 (06:44→21:45)
--- NOTE | 2023-11-25 06:44 | PM.PN ---
Subjective Subjective: Patient seen bedside this morning, is in good spirits, accompanied by her Ruel and father Yaron. Denies any acute events overnight. Vitals/I&O/Wt Last Vital Signs Temp 100.3 F H 11/25/23 04:00 Pulse 75 11/25/23 04:00 Resp 16 11/25/23 04:00 BP 123/75 11/25/23 04:00 Pulse Ox 100 11/25/23 04:00 O2 Del Method Room Air 11/25/23 04:00 O2 Flow Rate 6 11/21/23 09:16 11/24/23 11/24/23 11/25/23 14:59 22:59 06:59 Intake Total 540 / 540 900 / 1440 490 / 1930 Output Total 600 / 600 Balance 540 / 540 300 / 840 490 / 1330 Weight last 48 hrs Weight 185 lb 9.6 oz Weight 185 lb 3 oz Weight 190 lb Weight 190 lb 3 oz Physical Exam Narrative: GENERAL: Patient is alert and oriented ?3 and in no acute distress. The following is a focused left lower extremity exam. VASCULAR: Dorsalis pedis palpable. Posterior tibial artery palpable. Capillary refill time less than 3 seconds to the distal hallux bilaterally. Calf is supple and nontender proximally and distally. Edema focally to the left lateral midfoot and forefoot. Increased warmth at the left lateral foot. NEUROLOGICAL: Protective sensation intact 0/10 sites, tested with [place] monofilament to bilateral feet. DERMATOLOGICAL: Erythema at the left lateral foot slightly subsiding from skin marker, remains erythematous, sutures are intact without dehiscence, no purulent drainage. Puncture wound to the left plantar foot with quarter inch [place] drain intact draining serosanguineous drainage, no purulence. MUSCULOSKELETAL: No pain to palpation left foot secondary to diminished sensation. No crepitus with soft tissue palpation left foot. No range of motion left subtalar joint and left midfoot joint. Smooth nonpainful range of motion left ankle. Data 11/26/23 06:44 11/26/23 06:44 Micro: Microbiology 11/24/23 15:16 Blood Culture - Preliminary Blood SPECIMEN COLLECTED 11/24/23 15:00 Blood Culture - Preliminary Blood SPECIMEN COLLECTED 11/21/23 09:07 Anaerobic Culture - Preliminary Foot - #1 A&P Assessment and plan (1) Abscess of left foot: (2) Cellulitis of foot, left: (3) Infected puncture wound of plantar aspect of foot: Qualifiers: Encounter type: initial encounter Laterality: left Qualified Code(s): S91.332A - Puncture wound without foreign body, left foot, initial encounter; L08.9 - Local infection of the skin and subcutaneous tissue, unspecified Plan 33-year-old female with 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 Status post I&D left foot date of operation 11/21/2023. Encountered purulent abscess to the left lateral foot intraoperatively. Surgical culture significant for MRSA Continuing IV antibiotics, infectious disease consulted for antibiotic recommendations at discharge. Clinical improvement of the left foot, significant improvement to cellulitis and edema, given her clinical improvement to the left foot, MRI negative of abscess or osteomyelitis left foot is less likely to be source of fever. Will follow-up in podiatry clinic outpatient, requesting referral to neurology and is planning on establishing primary care with May Valdivia NP. She was diagnosed with muscular dystrophy by Dr. Juan Martinez MD neuromuscular medicine out of [facility]. Requesting records, she states that she was diagnosed with a specific kind of muscular dystrophy but she does not remember which type. Podiatry will follow Attestations Medical Necessity Statement*: Left foot abscess with cellulitis Coding Level of Care Code Acute Code for [facility] Fwd Diagnoses Abscess of left foot L02.612 Cellulitis of foot, left L03.116 Infected puncture wound of plantar aspect of foot S91.332A; L08.9 Encounter type: initial encounter Laterality: left
[2023-11-25] MEDS: LAMICTAL 25 MG 2 EACH PO (06:50)
[2023-11-25 07:54] VITALS: BP 112/71; PULSE 71; RESP 18; TEMP 37.7; O2SAT 96
--- NOTE | 2023-11-25 09:30 | MR_ITS ---
WS: [id number] MRI LEFT HAND WITHOUT CONTRAST. COMPARISON: Radiograph 11/20/2023 Multiplanar, multisequence imaging is performed without contrast. This is a nondiagnostic examination to evaluate for osteomyelitis or cellulitis. Patient's fingers ar e contracted and patient was unable to remain still in this position for this examination. A few MRI sequences were obtained. No significant amount of edema or fluid collection is identified. Marker is placed along the distal second metacarpal. There is no abnormality noted in this location on the few images obtained. MR/MR hand LT con* [id number] IMPRESSION: 1. Nondiagnostic evaluation of the LEFT hand. Study is terminated early due to motion and difficulty maintaining the position necessary for hand MRI. 2. There is no obvious fluid collection identified on the imaging submitted.
[2023-11-25] MEDS: pantoprazole DR 40 mg Tablet PO (09:48)
[2023-11-25 11:06] LABS: Lactate Dehydrogenase 166 U/L (135-214)
[2023-11-25] MEDS: ferrous gluconate 324 mg Tablet PO ×2 (11:28→17:39)
[2023-11-25 12:33] VITALS: BP 124/81; PULSE 64; RESP 20; TEMP 36.9; O2SAT 98
[2023-11-25 13:09] LABS: Lyme AB Screen <0.90 index
[2023-11-25] MEDS: doxycycline 100 mg Tablet PO (17:38)
[2023-11-25 18:19] VITALS: BP 110/68; PULSE 78; RESP 20; TEMP 37.2; O2SAT 100
[2023-11-25 20:00] VITALS: BP 115/76; PULSE 71; RESP 18; TEMP 37.8; O2SAT 99
--- NOTE | 2023-11-25 20:08 | P.PN_ITS ---
Subjective 2 Subjective: She states she is not feeling the best. Awaiting hand MRI. She is being visited by her and father. They have spoken with infectious disease provider. She tells me she is not entirely sure with regards to what the cause was of recurrent infections in her fingers. She states the skin just was splitting open and getting infected . She and family recall that she was following up with infectious disease doctor and PRR. Dr. Gomez. She thought perhaps this was related to muscular dystrophy. Vitals/I&O/Wt Last Vital Signs Temp 98.9 F 11/25/23 18:19 Pulse 78 11/25/23 18:19 Resp 20 H 11/25/23 18:19 BP 110/68 11/25/23 18:19 Pulse Ox 100 11/25/23 18:19 O2 Del Method Room Air 11/25/23 18:19 O2 Flow Rate 6 11/21/23 09:16 11/25/23 11/25/23 11/25/23 06:59 14:59 22:59 Intake Total 490 / 1930 970 / 970 490 / 1460 Balance 490 / 1330 970 / 970 490 / 1460 Weight last 48 hrs Weight 84.187 kg Weight 84 kg Weight 86.183 kg Physical Exam 2 Narrative: and father at bedside. Const: COMMON NORMALS: patient oriented x3 and alert GENERAL APPEARANCE: c ooperative ORIENTATION/CONSCIOUSNESS: Yes awake HENMT: COMMON NORMALS: oropharynx normal Neck/C-Spine: COMMON NORMALS: no JVD Resp: COMMON NORMALS: normal respiratory effort and clear to auscultation bilaterally AUSCULTATION: clear to auscultation bilaterally Cardio: COMMON NORMALS: no JVD, regular rhythm, S1 normal heart sound present, S2 normal heart sound present and No murmurs present (Cardio) RHYTHM: regular rhythm HEART SOUNDS: S1 normal heart sound present and S2 normal heart sound present GI: COMMON NORMALS: Normal to inspection, nondistended, normoactive bowel sounds present, Soft to palpation and non-tender PALPATION: Yes Soft to palpation Extremity: NARRATIVE EXTREMITY EXAM: Left hand wound with some expansion with loss of the macerated area surrounding the wound. Granulation tissue at the base. Right third digit middle phalanx wound somewhat circumferential with satellite appearance, also noted some dried blood on the fingernail of the right thumb. Neuro: COMMON NORMALS: patient oriented x3 and moves all extremities S ENSORIUM/ORIENTATION: Yes alert OTHER: Peripheral neuropathy. Data 11/25/23 04:58 11/25/23 04:58 Micro: Microbiology 11/24/23 15:16 Blood Culture - Preliminary Blood NEGATIVE TO DATE 11/24/23 15:00 Blood Culture - Preliminary Blood NEGATIVE TO DATE 11/20/23 13:35 Blood Culture - Final Blood NO GROWTH AFTER 5 DAYS 11/20/23 13:28 Blood Culture - Final Blood NO GROWTH AFTER 5 DAYS 11/21/23 09:07 Anaerobic Culture - Preliminary Foot - #1 A&P Assessment and plan (1) Recurrent fever: Recurrent fever, again fever up to 102 last night, up to 100.3 this morning and again 100 Fahrenheit this evening. Discussed with her, her and her father concern for possible occult infection which has not been identified. 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 Further workup today with MRI of the hand, it appears she was only able to perform partial study, MRI of left hand and right hand due to third digit dorsal wound was requested, partial MRI of the left hand performed. Suboptimal views, although without obvious deep infection/osteomyelitis. With recurrent fevers, cause is unclear. Reviewed vitals, CBC, CMP, vancomycin trough, UA, chest x-ray. Discussed with infectious disease specialist. We have requested records from [facility] as per discussion additional request was submitted today, records arrived from 2021 at which point she was seen by surgery due to digit open wound with hardware exposure requiring distal digit amputation. It appears at that time she was on minocycline chronically. Although patient and her family do not seem to recall chronic antibiotics. It appears she was following with Dr. Gomez at that time. Requesting records from Dr. Gomez's office. It appears that underlying condition is [id number]-Reait. Continue vancomycin, monitor for risk of kidney injury, ototoxicity. Reassess chemistry. Discussed with her and family regarding pneumonitis in right lower lung. She denies respiratory symptoms. No crackles or other adventitious sounds on auscultation. Saturating well on room air. With muscular dystrophy per discussion with infection disease will obtain modified barium swallow study to assess for possible recurrent microaspiration. Continue wound care for all wounds. She does appear to possibly injure inadvertently the wound on the third middle digit with the thumb with noted some dry crusted blood on the medial side of the thumb and thumbnail. Discussed with her to avoid injury, requesting dressing for that wound as well. UA otherwise unremarkable, unremarkable respiratory viral panel. ID starting her on doxycycline as well with thrombocytopenia, some transaminitis, consideration of possible tick bite. Tick panel pending. She and family are further applying for insurance to help her allow continued care. 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 Consideration of oral antibiotic therapy with possible higher risk of failure, consideration of additional IV antibiotics with transition to oral. Further recommendations to follow from infectious disease. Discussed with housing case manager. With thrombocytopenia, although studies not suggestive of hemolysis. Peripheral smear pending. (2) Infected puncture wound of plantar aspect of foot: Wound continues to improve as per podiatry assessment, reviewed podiatry note. Wound care as per podiatry team. Tramadol 50 mg every 6 hourly as needed for pain control. Qualifiers: Encounter type: initial encounter Laterality: left Qualified Code(s): S91.332A - Puncture wound without foreign body, left foot, initial encounter; L08.9 - Local infection of the skin and subcutaneous tissue, unspecified (3) Cellulitis of foot, left: (4) Abscess of left foot: (5) Seizure disorder: (6) Muscular dystrophy: Plan Continue home dose of lamotrigine and Keppra. Discussed with pharmacist to schedule every 12 hours at 630. Heartburn: She is having heartburn morning. Continue PPI. Changed ibuprofen to as needed. Left hand wound: Appreciate x-ray of the hand. As above, wound care changed to alginate dressing, to be changed to twice daily with some granulation tissue, maceration around the edges. Additional assessment of left hand with MRI as per above discussion. Transaminitis: Reviewed right upper quadrant ultrasound. Unremarkable. Check tick panel. Do not have baseline. For now stable. Negative hepatitis panel, HIV, gallbladder ultrasound. Check urine drug screen. Iron deficiency anemia: on oral iron supplementation. Regular diet SCD for DVT prophylaxis, hold heparin Protonix for PUD prophylaxis Attestations 2 Medical Necessity Statement*: Continue admission for assessment management of foot abscess with underlying hardware, MRSA infection, pending further debridement and reassessment of the wound, culture sent arrangements for continued antibiotic therapy depending on the above. and High Time for a total of 60 minutes, includes reviewing past or interval history, examining/interviewing patient, placing orders, counseling patient/family/other support, updating patient/family/other support, discussing plan of care with staff, communicating with other healthcare providers, documenting encounter and coordinating care Diagnoses Recurrent fever A68.9 Infected puncture wound of plantar aspect of foot S91.332A; L08.9 Encounter type: initial encounter Laterality: left Cellulitis of foot, left L03.116 Abscess of left foot L02.612 Seizure disorder G40.909 Muscular dystrophy G71.00
[2023-11-25] MEDS: famotidine 20 mg Tablet PO (22:58)
[2023-11-26] VITALS: BP 120/75; PULSE 68; RESP 18; TEMP 37.4; O2SAT 98
[2023-11-26 04:00] VITALS: BP 114/70; PULSE 63; RESP 17; TEMP 37.3; O2SAT 98
[2023-11-26] MEDS: vancomycin 1,000 MG in sodium chloride 0.9% 250 ML 250 MG IV ×3 (06:12→21:52)
[2023-11-26] MEDS: LAMICTAL 25 MG 2 EACH PO (06:49)
[2023-11-26 06:56] LABS: Basophils % 0.3 %; Eosinophils % 0.5 %; Hematocrit 31.8 % (36-47); Lymphocytes # 1.4 10^3/uL (0.8-4.8); Lymphocytes % 38.3 %; Mean Corpuscular HGB Conc 32.1 g/dL (30-55); Mean Corpuscular Hemoglobin 28.3 pg (27-33); Mean Corpuscular Volume 88.3 fl (85-98); Monocytes # 0.3 10^3/uL (0.2-0.9); Monocytes % 8.5 %; Neutrophils # 1.91 10^3/uL (1.8-7.7); Neutrophils % 52.1 %; Nucleated Red Blood Cells % 0 %; Platelet Count 118 10^3/cmm (157-399); Red Cell Distribution Width 15.3 % (12.1-15.1); White Blood Count 3.66 10^3/uL (3.29-11.43)
[2023-11-26 07:12] LABS: Alanine Aminotransferase 61 U/L (0-33); Albumin Level 3.3 g/dL (3.5-5.2); Alkaline Phosphatase 289 U/L (35-105); Anion Gap 15.6 (5-19); Aspartate Amino Transferase 36 U/L (0-32); Blood Urea Nitrogen 9 mg/dL (6-20); Calcium 8.3 mg/dL (8.5-10.5); Carbon Dioxide 22 mmol/L (22-29); Chloride 105 mmol/L (98-107); Creatinine Clr Calc Pharmacy 204.3868; Globulin 3.4 g/dL (1.3-4.6); Glomerular Filtration Rate 182.7 mL/min (90-130); Glucose 92 mg/dL (65-115); Osmolality Calculated 286 mOsm/kg (285-295); Potassium 3.6 mmol/L (3.5-5.1); Sodium 139 mmol/L (136-145); Total Bilirubin 0.3 mg/dL (0.15-1.2); Total Protein 6.7 g/dL (6.6-8.7)
[2023-11-26 07:13] LABS: Gamma Glutamyl Transferase 185 U/L (5-36)
[2023-11-26 07:28] VITALS: BP 113/73; PULSE 67; RESP 16; TEMP 36.8; O2SAT 95
[2023-11-26 07:28] LABS: C Reactive Protein 27.7 mg/L (0.0-4.9); Creatine Phosphokinase 33 U/L (26-192)
[2023-11-26] MEDS: pantoprazole DR 40 mg Tablet PO (07:59)
[2023-11-26] MEDS: doxycycline 100 mg Tablet PO ×2 (07:59→18:07)
[2023-11-26] MEDS: ferrous gluconate 324 mg Tablet PO ×2 (07:59→18:07)
--- NOTE | 2023-11-26 09:30 | FL_ITS ---
WS: [id number] Modified barium swallow, 11/26/2023 Clinical Data: Oropharyngeal dysphagia Comparison: None. Fluoroscopy time: 1min [id number] # of spot films: 0 Findings: The patient demonstrated minimal vallecular filling prior to initiating swallowing. There was no pene tration or aspiration. There was minimal residue occasionally in the vallecula with solids which did clear with double swallowing. The patient swallowed the barium tablet normally from the oral pharynx into the stomach. FL/FL barium swallow modifd [id number] Impression: 1. Negative for penetration or aspiration. 2. Mild residue in the vallecula with solids which cleared with double swallows .
--- NOTE | 2023-11-26 11:13 | CT_ITS ---
WS: [id number] CONTRAST-ENHANCED CT RIGHT HAND TECHNIQUE: Contrast-enhanced CT RIGHT hand with coronal and sagittal reformatted images. CLINICAL INFORMATION: R 3rd digit wound, Hx OM COMPARISON: None. DLP: 225.[address] scans at [facility] use at least one of these dose optimization techniques: automated e xposure control; mA and/or kV adjustment per patient size (includes targeted exams where dose is matc hed to clinical indication); or iterative reconstruction. FINDINGS: Diffuse soft tissue edema with induration and enhancement suspicious for infection with dev eloping phlegmon/abscess involving the middle and distal phalanx third digit. Destruction of the thir d DIP joint with bony fragmentation suspicious for osteomyelitis. Soft tissue induration with chronic appearing bony fragmentation involving the fourth distal phalanx. Recommend correlation for infection in this area. Small amount of induration involving the residual middle phalanx second digit. Amputation of the seco nd distal phalanx Chronic deformities with contractures of the RIGHT hand. Images are somewhat limited due to positioni ng and contractures. Screw fixation involving the first DIP. Additional screw fixation involving the fifth distal phalanx. CT/CT hand RT w con [id number] IMPRESSION: 1. Diffuse infection with cellulitis and surrounding phlegmon at the third DIP joint with bony destruction compatible with osteomyelitis. 2. Small amount of soft tissue thickening with induration suspicious for infec tion involving the fourth distal phalanx with associated fragmentation also mallory picious for osteomyelitis which may be subacute to chronic
[2023-11-26 11:37] VITALS: BP 117/79; PULSE 77; RESP 16; TEMP 37.3; O2SAT 98
[2023-11-26] MEDS: iohexol 350 mg/mL 500 mL Btl (per mL) IV (12:46)
[2023-11-26 14:25] LABS: Methicillin-Resist S.aureu PCR NOT DETECTED (NOT DETECTED)
--- NOTE | 2023-11-26 14:41 | P.PN_ITS ---
Subjective 2 Subjective: Coming into the room the dressing is off of her left hand, crumpled up on the bed. She and her state that it just fell off . They express frustration that she is having to stay in the hospital even though she 'is no longer having fever'. We discussed that she did have low-grade fever 100 Fahrenheit last night. It is good that fevers are improving, but we do want to see that she is persistently fever free at least 48 hours before considering further steps including consideration of PICC line or other options. She states I told him I cannot have a PICC line due to allergy to the dressing . We revisited with her that PICC line and IV antibiotic infusions may be only 1 option, as previously discussed with her an alternative dressing option may be chosen, but that she and her family will be involved in decision of postdischarge therapy together with infectious disease doctor based on best practice recommendations, her condition, possibility of access given social difficulties, and their goals of care, although we discussed that some options may have potential limitations and/or risk of adverse effects. During the discussion patient's interjects multiple times with jg gruber, rolling his eyes, sitting back in the chair crossing his arms and shaking his head, stating that she is not given a chance to go home. We discussed again regarding concerns of MRSA infection, recurrent infections, including prior osteomyelitis, need for partial digit amputation, chronic antibiotic suppression, with concerns of risk of occult infection, recurrent infection, sepsis and other severe potentially disabling and or life-threatening complications which they verbalized they understand. Patient states I have had MRSA before, it is not my first rodeo . We discussed results of MRI, although study suboptimal and incomplete, they also could not perform the right side MRI, she states that she did stay still for the study, although motion artifact noted on imaging. She declines to do the swallowing study with her stating she swallows fine . We revisited with her again regarding recurrent fevers, right lower lobe pneumonitis as we had previously discussed on chest x-ray, and she reports history of muscular dystrophy, discussed concern of possible microaspiration. Discussed the swallowing test procedure, discussed purpose. Her father is at bedside as well. With her interrupting discussion and raising his voice, patient's father apologizes stating that he lives with autism. I reassured patient and , and discussed again regarding the reasoning and concerns of further assessment and treatments. We further discussed revisit with infectious disease tomorrow and further consideration of postdischarge antibiotic regimen, discussed concerns regarding possible myopathy with daptomycin as they have mentioned this option several times, however, these considerations are still to be further discussed with infectious disease depending on the further workup. Since she could not complete MRI of the right hand yesterday we discussed obtaining CT scan to further evaluate the third digit with opening of the wound to assess for possible underlying infection there. To which after additional discussion patient and family agreed. On return after the studies on revisit with patient and family she states I did fine, they tell me I swallowed everything fine . We discussed with them findings on CT so far as per discussion with radiologist with finding of deeper tissue infection of the third digit of the right hand including intrusion into bone and joint with damage. There is no well-defined fluid collection that could be candidate for percutaneous drainage. Discussed with them I have reached out for orthopedic assessment for debridement versus possible amputation of the digit given recurrent deep infection, MRSA infection, risk of progression proximally to the hand, distal embolization, sepsis, other complications of embolization to spine, brain, potentially severely disabling or life-threatening complications. Discussed transfer to allow for further assessment and treatment. Explained to them regarding transfer procedure. They are not sure which hospital they would like, discussed options with them, they state would like to take some time to discuss and decide on which facility to go to. They are concerned about financial/insurance aspect. Discussed with them the hospital should not refuse care due to lack of insurance and that we should try to get her the care she needs. We discussed with them the transfer process takes time and to let us know soon as possible given time is of the essence with deeper tissue and joint infection and the risks as previously outlined. They state will let us know their choice. Vitals/I&O/Wt Last Vital Signs Temp 99.2 F 11/26/23 11:37 Pulse 77 11/26/23 11:37 Resp 16 11/26/23 11:37 BP 117/79 11/26/23 11:37 Pulse Ox 98 11/26/23 11:37 O2 Del Method Room Air 11/26/23 11:37 O2 Flow Rate 6 11/21/23 09:16 11/25/23 11/26/23 11/26/23 22:59 06:59 14:59 Intake Total 569.167 / 1539.167 170.833 / 1710.000 726 / 726 Balance 569.167 / 1539.167 170.833 / 1710.000 726 / 726 Weight last 48 hrs Weight 81.278 kg Weight 81.278 kg Weight 84.187 kg Physical Exam 2 Narrative: and father at bedside. Const: COMMON NORMALS: patient oriented x3 and alert GENERAL APPEARANCE: c ooperative ORIENTATION/CONSCIOUSNESS: Yes awake HENMT: COMMON NORMALS: oropharynx normal Neck/C-Spine: COMMON NORMALS: no JVD Resp: COMMON NORMALS: normal respiratory effort and clear to auscultation bilaterally AUSCULTATION: clear to auscultation bilaterally Cardio: COMMON NORMALS: no JVD, regular rhythm, S1 normal heart sound present, S2 normal heart sound present and No murmurs present (Cardio) RHYTHM: regular rhythm HEART SOUNDS: S1 normal heart sound present and S2 normal heart sound present GI: COMMON NORMALS: Normal to inspection, nondistended, normoactive bowel sounds present, Soft to palpation and non-tender PALPATION: Yes Soft to palpation Extremity: NARRATIVE EXTREMITY EXAM: Left hand wound dressing is off, with granulation tissue at the base, minimal serous discharge at the distal end. Without purulence. Without expansion of the elongated blister on the proximal palm, no surrounding erythema, no purulent drainage. Right third digit middle phalanx wound somewhat circumferential with satellite appearance, with swelling of the digit. Neuro: COMMON NORMALS: patient oriented x3 and moves all extremities S ENSORIUM/ORIENTATION: Yes alert OTHER: Peripheral neuropathy. Data 11/26/23 06:44 11/26/23 06:44 Micro: Microbiology 11/21/23 09:07 Anaerobic Culture - Preliminary Foot - #1 11/24/23 15:16 Blood Culture - Preliminary Blood NEGATIVE TO DATE 11/24/23 15:00 Blood Culture - Preliminary Blood NEGATIVE TO DATE 11/20/23 13:35 Blood Culture - Final Blood NO GROWTH AFTER 5 DAYS 11/20/23 13:28 Blood Culture - Final Blood NO GROWTH AFTER 5 DAYS A&P Assessment and plan (1) Recurrent fever: Reviewed vitals, CBC, CMP, GGT, CRP, and MRI. Reviewed podiatry note. Discussed with patient and family and nursing during visit as above. With reported muscular dystrophy, right lower lobe pneumonitis obtaining modified barium swallow evaluation as per additional discussion with her and family. Similarly as she could not complete the MRI studies yesterday, discussed further imaging right hand with CT with contrast as above. Discussed CT findings with radiologist finding of deeper tissue infection in the third digit as well as suspected findings of infection of the third digit bone and joint with damage. Regarding importance of further assessment as per above discussion with patient and family regarding importance of further assessment by surgery for debridement possibly amputation, currently we do not have such a surgeon available here, necessitating arrangements for transfer to facility who can provide further care without delay with risk of proximal spread of progression of the infection, further damage, proximal spread. Patient and family verbalized understanding of the risks of delay, do request time to discuss and decide regarding facility for transfer. Do also have concerns regarding whether she may be accepted without insurance, however, discussed that this hopefully would be possible and that we should at least try to get her the care she needs. They state will let us know their decision. She did well on MBS without signs of penetration. Otherwise fever is showing's improvement, last fever 100 Fahrenheit last night at 8 PM. Platelets with improvement up to 118. Repeat blood culture pending. Also pending tick panel, continues on doxycycline. Although states she [place] not really go outside[place] Continue vancomycin, monitor for risk of kidney injury, ototoxicity. Reassess chemistry. They understand the need for prolonged antibiotic treatment after discharge with MRSA infection, underlying hardware, And are in discussions with ID specialist with regards to consideration of different options. She reports allergy to dressing with prior PICC line. Continue wound care for the left palm. The dressing was off which they state just fell off , she states the wound appears slightly better than yesterday. There does appear to be less serous discharge. Continue alginate dressing, light gauze cover, avoid buildup of moisture. If not improving may have to consider biopsy. If lack of improvement - questionable pyoderma gangrenosum? No evidence of erythema multiforme, Alan- Jj syndrome, no rash, no perioral lesions. Discussed with them consideration of follow-up with dermatology for further assessment of alternative underlying condition. UA otherwise unremarkable, unremarkable respiratory viral panel. She and family are further applying for insurance to help her allow continued care. 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 Consideration of oral antibiotic therapy with possible higher risk of failure, consideration of additional IV antibiotics with transition to oral. Further recommendations to follow from infectious disease. Discussed with pillowcase maker. With thrombocytopenia, although studies not suggestive of hemolysis. Peripheral smear reviewed, moderate severe normocytic anemia, mild to moderate thrombocytopenia. Low normal WBC count. Nonspecific findings. (2) Infected puncture wound of plantar aspect of foot: Wound continues to improve as per podiatry assessment, reviewed podiatry note. Wound care as per podiatry team. Continue antibiotic coverage as above. Tramadol 50 mg every 6 hourly as needed for pain control. Qualifiers: Encounter type: initial encounter Laterality: left Qualified Code(s): S91.332A - Puncture wound without foreign body, left foot, initial encounter; L08.9 - Local infection of the skin and subcutaneous tissue, unspecified (3) Cellulitis of foot, left: (4) Abscess of left foot: (5) Seizure disorder: (6) Muscular dystrophy: Plan Continue home dose of lamotrigine and Keppra. Discussed with pharmacist to schedule every 12 hours at 630. Heartburn: She is having heartburn morning. Continue PPI. Changed ibuprofen to as needed. Left hand wound: Encouraged her to keep dressing in place and protect the wound. Avoid contamination. Additional assessment of left hand with MRI as per above discussion. Transaminitis: Mild. Pending tick panel. Liver echogenicity unremarkable on ultrasound, although there is some hepatomegaly. Reviewed right upper quadrant ultrasound. Unremarkable. Check tick panel. Do not have baseline. For now stable. Negative hepatitis panel, HIV, gallbladder ultrasound. Unremarkable urine drug screen. Will need further assessment with follow-up. Iron deficiency anemia: on oral iron supplementation. Regular diet SCD for DVT prophylaxis, hold heparin Protonix for PUD prophylaxis Attestations 2 Medical Necessity Statement*: Continue admission for assessment management including arrangements for transfer for further assessment and treatment of deep infection of Right third finger, status post foot abscess with underlying hardware, MRSA infection, with recurrent fevers. Post discharge planning and arrangements. and High Time for a total of 75 minutes, includes reviewing past or interval history, examining/interviewing patient, placing orders, counseling patient/family/other support, updating patient/family/other support, discussing plan of care with staff, communicating with other healthcare providers, documenting encounter and coordinating care Diagnoses Recurrent fever A68.9 Infected puncture wound of plantar aspect of foot S91.332A; L08.9 Encounter type: initial encounter Laterality: left Cellulitis of foot, left L03.116 Abscess of left foot L02.612 Seizure disorder G40.909 Muscular dystrophy G71.00
[2023-11-26 15:27] VITALS: BP 118/74; PULSE 67; RESP 16; TEMP 37; O2SAT 100
[2023-11-26 19:51] VITALS: BP 122/82; PULSE 70; RESP 18; TEMP 37.7; O2SAT 98
[2023-11-26] MEDS: famotidine 20 mg Tablet PO (20:44)
[2023-11-27] VITALS: BP 104/66; PULSE 69; RESP 17; TEMP 37.2; O2SAT 97
[2023-11-27 04:00] VITALS: BP 120/71; PULSE 70; RESP 17; TEMP 36.9; O2SAT 97
[2023-11-27 04:03] LABS: Basophils % 0.2 %; Eosinophils % 0.5 %; Hematocrit 32.6 % (36-47); Lymphocytes # 1.4 10^3/uL (0.8-4.8); Lymphocytes % 33.2 %; Mean Corpuscular HGB Conc 32.2 g/dL (30-55); Mean Corpuscular Hemoglobin 28.2 pg (27-33); Mean Corpuscular Volume 87.4 fl (85-98); Mean Platelet Volume 10.8 fL (7.4-10.4); Monocytes # 0.4 10^3/uL (0.2-0.9); Monocytes % 8.6 %; Neutrophils % 57.3 %; Nucleated Red Blood Cells % 0 %; Platelet Count 141 10^3/cmm (157-399); Red Blood Count 3.73 10^6/uL (3.85-5.65); Red Cell Distribution Width 15.3 % (12.1-15.1); White Blood Count 4.19 10^3/uL (3.29-11.43)
[2023-11-27 04:17] LABS: Alanine Aminotransferase 58 U/L (0-33); Albumin Level 3.3 g/dL (3.5-5.2); Alkaline Phosphatase 279 U/L (35-105); Anion Gap 14.8 (5-19); Aspartate Amino Transferase 30 U/L (0-32); Blood Urea Nitrogen 9 mg/dL (6-20); Calcium 8.5 mg/dL (8.5-10.5); Carbon Dioxide 23 mmol/L (22-29); Chloride 106 mmol/L (98-107); Creatinine Clr Calc Pharmacy 204.3868; Globulin 3.2 g/dL (1.3-4.6); Glomerular Filtration Rate 182.7 mL/min (90-130); Glucose 105 mg/dL (65-115); Osmolality Calculated 289 mOsm/kg (285-295); Potassium 3.8 mmol/L (3.5-5.1); Sodium 140 mmol/L (136-145); Total Bilirubin 0.3 mg/dL (0.15-1.2); Total Protein 6.5 g/dL (6.6-8.7)
[2023-11-27] MEDS: vancomycin 1,000 MG in sodium chloride 0.9% 250 ML 250 MG IV ×2 (05:56→13:36)
[2023-11-27] MEDS: LAMICTAL 25 MG 2 EACH PO (06:59)
[2023-11-27 07:40] VITALS: BP 111/73; PULSE 63; RESP 15; TEMP 36.7; O2SAT 98
[2023-11-27] MEDS: pantoprazole DR 40 mg Tablet PO (07:43)
[2023-11-27] MEDS: ferrous gluconate 324 mg Tablet PO ×2 (07:43→17:39)
[2023-11-27] MEDS: doxycycline 100 mg Tablet PO ×2 (09:36→17:39)
[2023-11-27 11:35] VITALS: BP 114/72; PULSE 67; RESP 16; TEMP 36.8; O2SAT 98
--- NOTE | 2023-11-27 13:56 | PM.PN ---
Subjective Subjective: Infectious disease progress note. Last Tmax of 100 Fahrenheit on November 25, 2023 at 8 PM. Since then Tmax has been 99.8 Fahrenheit. Fever curve overall appears to be improving. Platelet count improving at 141. Blood cultures remain negative to date. Prior notes were made available from [place]. 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 At least 1 incidence of pain infection involving digits on the left hand well which necessitated hardware removal and prolonged IV antibiotics. 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 Medications: Reviewed: Yes Vitals/I&O/Wt Last Vital Signs Temp 98.3 F 11/27/23 11:35 Pulse 67 11/27/23 11:35 Resp 16 11/27/23 11:35 BP 114/72 11/27/23 11:35 Pulse Ox 98 11/27/23 11:35 O2 Del Method Room Air 11/27/23 11:35 O2 Flow Rate 6 11/21/23 09:16 11/26/23 11/27/23 11/27/23 22:59 06:59 14:59 Intake Total 368 / 1094 500 / 1594 236 / 236 Balance 368 / 1094 500 / 1594 236 / 236 Weight last 48 hrs Weight 81.647 kg Weight 81.647 kg Weight 81.278 kg Weight 81.278 kg Physical Exam Narrative: General: No acute distress, AO x3 HEENT: PERRLA, pupils bilaterally equal and reactive, pallors not present Chest: Normal vesicular breath sounds, no added sounds, equal good air entry bilaterally CVS: S1-S2 regular, no murmurs, no tachycardia, no gallops, no rubs Abdomen: Soft, nontender, no organomegaly, bowel sounds present Data 11/27/23 03:40 11/27/23 03:40 Micro: Microbiology 11/21/23 09:07 Anaerobic Culture - Preliminary Foot - #1 NAME: Belkys Alba LOC: [facility] U #: [id number] AGE/SX: 33/F ROOM: [facility] RE11/20/[address]: Marco Alvarenga MD : 1990 BED: 1 DIS: FAX #: STATUS: ADM IN TLOC: Spec #: [id number] Arlette: 11/24/23 Status: RES Req #: [id number] Recd: 11/24/[address]: Marco Alvarenga MD Src: Blood SpDesc: Ordered: Bcult Procedure Result Verified Site Blood Culture Preliminary 11/25/23 NEGATIVE TO DATE Blood Culture Preliminary (changed) 11/24/23 SPECIMEN COLLECTED NAME: Belkys Alba LOC: [facility] #: [id number] AGE/SX: 33/F ROOM: 271 RE11/20/[address]: Marco Alvarenga MD : 1990 BED: 1 DIS: FAX #: STATUS: ADM IN TLOC: Spec #: [id number] Arlette: 11/24/23 Status: RES Req #: [id number] Recd: 11/24/[address]: Marco Alvarenga MD Src: Blood SpDesc: Ordered: Bcult Procedure Result Verified Site Blood Culture Preliminary 11/25/23 NEGATIVE TO DATE Blood Culture Preliminary (changed) 11/24/23 SPECIMEN COLLECTED NAME: AnjaliBelkys LOC: [facility] #: [id number] AGE/SX: 33/F ROOM: [facility] RE11/20/[address]: Marco Alvarenga MD : 1990 BED: 1 DIS: FAX #: STATUS: ADM IN TLOC: Spec #: [id number] Arlette: 11/21/23 Status: RES Req #: [id number] Recd: 11/21/[address]: Sebas Chacon DPM Src: Foot SpDesc: #1 Ordered: Anaer Procedure Result Verified Site Anaerobic Culture Preliminary 11/26/23-1431 NO ANAEROBES ISOLATED ON DAY 5 Anaerobic Culture Preliminary (changed) 11/25/23-1246 NO ANAEROBES ISOLATED ON DAY 4 Anaerobic Culture Preliminary (changed) 11/24/23-1020 NO ANAEROBES ISOLATED ON DAY 3 Anaerobic Culture Preliminary (changed) 11/23/23-1533 NO ANAEROBES ISOLATED ON DAY 2 Anaerobic Culture Preliminary (changed) 11/22/23-1907 NO ANAEROBES ISOLATED ON DAY 1 NAME: Belkys Alba LOC: [facility] U #: [id number] AGE/SX: 33/F ROOM: [facility] RE11/20/[address]: Marco Alvarenga MD : 1990 BED: 1 DIS: FAX #: STATUS: ADM IN TLOC: Spec #: [id number] Arlette: 11/21/23 Status: COMP Req #: [id number] Recd: 11/21/[address]: Sebas Chacon DPM Src: Other Sour SpDesc: Ordered: WC and GS Procedure Result Verified Site Gram Stain Final 11/21/23-1401 Result NO ORGANISMS SEEN NO WHITE BLOOD CELLS Wound Culture Final 11/23/23-1522 Organism 1 Methicillin Resis Staph Aureus Growth FEW DAY 2 CRITICAL RESULT YES/NO: YES CRITICAL CALLED BY: OLIVIA TO AND READ BACK BY: CHELA DATE: 11/23/23 TIME: 152 MRSA M.I.C. RX --------- ------ * Ampicillin <=2 R * Ciprofloxacin <=1 S * Clindamycin <=0.5 S * Erythromycin >4 R * Gentamicin <=4 S * Levofloxacin <=1 S * Linezolid 4 S * Oxacillin >2 R * Penicillin 2 R * Rifampin <=1 S * Tetracycline <=4 S * Trimethoprim/Sulfamethoxazole <=0.5/9.5 S Vancomycin 1 S Daptomycin 1 S Wound Culture Preliminary (changed) 11/22/23-1558 Organism 1 Coag positive Staphylococcus Growth FEW DAY 1, RESULTS TO FOLLOW NAME: Belkys Alba LOC: [facility] U #: [id number] AGE/SX: 33/F ROOM: [facility] RE11/20/[address]: Marco Alvarenga MD : 1990 BED: 1 DIS: FAX #: STATUS: ADM IN TLOC: Spec #: [id number] Arlette: 11/20/23 Status: COMP Req #: [id number] Recd: 11/20/[address]: Sana Ye Src: Blood SpDesc: Ordered: Bcult Procedure Result Verified Site Blood Culture Final 11/25/23 NO GROWTH AFTER 5 DAYS Blood Culture Preliminary (changed) 11/21/23 NEGATIVE TO DATE Blood Culture Preliminary (changed) 11/20/23 SPECIMEN COLLECTED NAME: Belkys Alba LOC: [facility] #: [id number] AGE/SX: 33/F ROOM: [facility] RE11/20/[address]: Marco Alvarenga MD : 1990 BED: 1 DIS: FAX #: STATUS: ADM IN TLOC: Spec #: [id number] Arlette: 11/20/23 Status: COMP Req #: [id number] Recd: 11/20/[address]: Sana Ye Src: Blood SpDesc: Ordered: Bcult Procedure Result Verified Site Blood Culture Final 11/25/23 NO GROWTH AFTER 5 DAYS Blood Culture Preliminary (changed) 11/21/23 NEGATIVE TO DATE Blood Culture Preliminary (changed) 11/20/23 SPECIMEN COLLECTED Radiology Impressions Foot CT 11/20/23 13:19 IMPRESSION: 1. Focal abscess along the plantar surface of the foot at the level of the anterior calcaneus measuring 1.5 x 1.4 cm. 2. Additional abscess lateral to the anterior calcaneus measures 1.4 x 1.0 cm. These 2 collections probably communicate along the plantar surface of the calcaneus. 3. Soft tissue edema. 4. No osteomyelitis identified radiographically. Foot X-Ray 11/20/23 16:57 IMPRESSION: Hardware is visualized in the proximal foot without evidence of hardware failure. No acute fractures seen. Severe degenerative changes of the foot. Hand X-Ray 11/20/23 17:12 IMPRESSION: No acute fractures or subluxations. Tibia/Fibula X-Ray 11/20/23 17:28 IMPRESSION: Intramedullary kevin with proximal and distal interlocking screws overlies a the chronic fracture of the distal tibia in unchanged alignment. No periprosthetic fracture or hardware failure. Chronic deformity of the fibular diaphysis. Gallbladder Ultrasound 11/21/23 12:28 IMPRESSION: No acute findings. Foot MRI 11/23/23 13:06 IMPRESSION: 1. No evidence of osteomyelitis or fluid collection to suggest abscess. Chest X-Ray 11/24/23 11:59 IMPRESSION: Small amount of pneumonitis right lower lung. Hand MRI 11/25/23 09:30 IMPRESSION: 1. Nondiagnostic evaluation of the LEFT hand. Study is terminated early due to motion and difficulty maintaining the position necessary for hand MRI. 2. There is no obvious fluid collection identified on the imaging submitted. Modified Barium Swallow 11/26/23 09:30 Impression: 1. Negative for penetration or aspiration. 2. Mild residue in the vallecula with solids which cleared with double swallows. Hand CT 11/26/23 11:13 IMPRESSION: 1. Diffuse infection with cellulitis and surrounding phlegmon at the third DIP joint with bony destruction compatible with osteomyelitis. 2. Small amount of soft tissue thickening with induration suspicious for infection involving the fourth distal phalanx with associated fragmentation also suspicious for osteomyelitis which may be subacute to chronic A&P Assessment and plan (1) Abscess of left foot: Abscess of left foot Status post I&D on November 21, 2023. Or cultures revealing MRSA. Blood cultures negative from admission. Currently on iv vancomycin since November 20, 2023 , last trough today at 16.5 Can discontinue piperacillin/tazobactam as cultures revealing only MRSA to date. Does not appear to have had involvement of hardware. MRI of the forefoot taken on November 23, 2023 without evidence of osteomyelitis or hardware involvement. repeat CRP at 27 << 89 Anticipate patient needing at least 2 weeks of treatment for complicated skin and soft tissue infection with MRSA. There is underlying hardware with high risk of progression and hardware involvement down the line, therefore would prefer to treat this with iv abx. Patient states that she has reacted poorly to PICC line in the past. She appears to have had a local recation at PICC site which necessitated removal of PICC line and severe skin breakdown. She's rather not have a PICC line placed. Discussed with her that given her recent thrombocytopenia, with platelet counts falling during course of the admission with lowest at 100, would not use linezolid as a first choice since thrombocytopenia is a known adverse effect of the drug. Should she need evaluation for persisting or recurrent thrombocytopenia in the upcoming weeks, linezolid is likely to cloud the clinical picture. Given the above, prefer to treat her with long acting dalbavancin 1500mg iv x 1 (2) Persistent fever: now improving, afebrile last 48 hrs Reviewed podiatry notes, her wound appears to be healing well. No signs of dehiscence. Last MRI without signs of osteomyelitis. No hardware involvement encountered intraoperatively. negtaive UA Chest x-ray showing suspicion for right-sided pneumonitis, however patient currently clinically has no respiratory symptoms. Respiratory viral panel was negative. ?? chronicity?? may have had recent viral infection- recommend outpatient f/up X ray with PCP. MRI of the left hand limited by motion, however no signs of abscess within constraints of the study. Right hand appears to have spontaneous skin dehiscence on Thursday. And CT showing cellulitis with surrounding phlegmon at the third DIP joint with bony destruction. There is small amount of soft tissue thickening with induration suspicious for infection involving the fourth distal phalanx which may be subacute to chronic osteomyelitis. In reviewing her past notes, patient has an extensive past history of osteomyelitis involving digits of bilateral hands. These findings were discussed by Dr. Alvarenga with hand surgeon at [facility] who recommended outpatient evaluation of the same. We have requested an expedited outpatient appointment, at this time it is not entirely clear if her bony changes appear to be compatible with old versus new osteomyelitis. Eventually may need biopsy and cultures of the bone to further assess. Clinically there is no cristobal pus discharge. Local wound care is recommended in addition to iv dalbavancin as above. (3) MRSA (methicillin resistant Staphylococcus aureus): History of recurrent MRSA infections. Will offer decolonization at discharge (4) Thrombocytopenia: Unclear cause, check tick panel as above. now resolving , platelt at 140 today continue doxycycline 100mg po BID for short course x 7 days (5) Transaminitis: Check tick panel as above. negative acute hep panel negative GB USG Plan Discussed with patient, her father and at bedside Attestations Medical Necessity Statement*: per admitting Coding Level of Care Code Acute Code for Chg Fwd High MDM includes number and complexity of problems actively addressed during encounter, amount and/or complexity of data reviewed/ordered and described risk of complication, morbidity or mortality of management as documented Diagnoses Abscess of left foot L02.612 Persistent fever R50.9 MRSA (methicillin resistant Staphylococcus aureus) A49.02 Thrombocytopenia D69.6 Transaminitis R74.01
--- NOTE | 2023-11-27 15:09 | P.PN_ITS ---
Subjective 2 Subjective: Patient seen bedside this afternoon, she is in good spirits, planning on discharge home with outpatient follow-up in [place] in regards to her hand, received a dose of dalbavancin. Denies pain to the left foot. Accompanied by her father and . Patient denies any subjective nausea, vomiting, fever, chills, shortness of breath or chest pain. Vitals/I&O/Wt Last Vital Signs Temp 98.3 F 11/27/23 11:35 Pulse 67 11/27/23 11:35 Resp 16 11/27/23 11:35 BP 114/72 11/27/23 11:35 Pulse Ox 98 11/27/23 11:35 O2 Del Method Room Air 11/27/23 11:35 O2 Flow Rate 6 11/21/23 09:16 11/27/23 11/27/23 11/27/23 06:59 14:59 22:59 Intake Total 500 / 1594 236 / 236 Balance 500 / 1594 236 / 236 Weight last 48 hrs Weight 180 lb Weight 180 lb Weight 179 lb 3 oz Weight 179 lb 3 oz Physical Exam 2 Narrative: GENERAL: Patient is alert and oriented ?3 and in no acute distress. The following is a focused left lower extremity exam. VASCULAR: Dorsalis pedis palpable. Posterior tibial artery palpable. Capillary refill time less than 3 seconds to the distal hallux bilaterally. Calf is supple and nontender proximally and distally. Edema focally to the left lateral midfoot and forefoot. Increased warmth at the left lateral foot. NEUROLOGICAL: Protective sensation intact 0/10 sites, tested with Troy Bety monofilament to bilateral feet. DERMATOLOGICAL: No erythema left foot, sutures are intact without dehiscence, no purulent drainage. No drainage or erythema from puncture wound site left plantar foot. MUSCULOSKELETAL: No pain to palpation left foot secondary to diminished sensation. No crepitus with soft tissue palpation left foot. No range of motion left subtalar joint and left midfoot joint. Smooth nonpainful range of motion left ankle. 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 Status post I&D left foot date of operation 11/21/2023. Encountered purulent abscess to the left lateral foot intraoperatively. Surgical culture significant for MRSA Received dalbavancin IV with discharge planning Clinical improvement of the left foot, resolved cellulitis, resolved erythema and resolved edema to the left foot, given her clinical improvement to the left foot, postoperative MRI negative for abscess or osteomyelitis left foot Will follow-up in podiatry clinic outpatient, requesting referral to neurology and is planning on establishing primary care with May Valdivia NP. She was diagnosed with muscular dystrophy by Dr. Juan Martinez MD neuromuscular medicine out of [facility]. Requesting records, she states that she was diagnosed with a specific kind of muscular dystrophy but she does not remember which type. Podiatry will follow Attestations 2 Medical Necessity Statement*: Receiving IV antibiotics and wound care Coding Level of Care Code Acute Code for [facility] Fwd Diagnoses Abscess of left foot L02.612 Cellulitis of foot, left L03.116 Infected puncture wound of plantar aspect of foot S91.332A; L08.9 Encounter type: initial encounter Laterality: left
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
[2023-11-27 15:23] VITALS: BP 120/75; PULSE 68; RESP 16; TEMP 36.9; O2SAT 99
[2023-11-27] MEDS: valACYclovir 1,000 mg Tablet 1000 MG PO (17:39)
[2023-11-28 11:58] LABS: Heparin-Induced Platelet AB Negative (Negative)
[2023-11-28 15:10] LABS: UFH High Dose 100 IU/ML 0 % Release; UFH Low Dose 0.1 IU/ML 0 % Release; UFH Low Dose 0.5 IU/ML 0 % Release; UFH SRA Result Negative (Negative)
[2023-11-28 16:59] LABS: RMSF IGG NOT DETECTED; RMSF IGM NOT DETECTED
[2023-11-28 21:55] LABS: E. Chaffeensis AB IGG <1:64; E. Chaffeensis AB IGM <1:20
[2023-12-02 12:05] LABS: ADAMTS 13 Activity 0.98 IU/mL (0.68-1.63)
== END 2023-11-27 17:52 | disposition home or self-care (01) | DRG 579 ==
LOC: ER 15:33 → MEDSURG 16:16
PROVIDERS: Podiatrist Foot & Ankle Surgery; Student in an Organized Health Care Education/Training Program; Admitting Provider Student in an Organized Health Care Education/Training Program; Emergency Provider Physician Assistant; Visit Provider Internal Medicine
PROC: 0KBW0ZZ Excision of Left Foot Muscle, Open Approach (ICD-10-PCS; principal; 2023-11-21 08:45)
DX: L03.116 Cellulitis of left lower limb (principal); J18.9 Pneumonia, unspecified organism; L02.612 Cutaneous abscess of left foot; G71.00 Muscular dystrophy, unspecified; G40.909 Epilepsy, unspecified, not intractable, without status epilepticus; L03.012 Cellulitis of left finger; G62.9 Polyneuropathy, unspecified; B95.62 Methicillin resistant Staphylococcus aureus infection as the cause of diseases classified elsewhere; D69.6 Thrombocytopenia, unspecified; D50.9 Iron deficiency anemia, unspecified; G60.0 Hereditary motor and sensory neuropathy; R74.01 Elevation of levels of liver transaminase levels; Z11.52 Encounter for screening for COVID-19; Z86.14 Personal history of Methicillin resistant Staphylococcus aureus infection
CPT/HCPCS: 36415; 71045; 73120; 73201; 73218; 73590; 73630; 73701; 73720; 74230; 76705; 80053; 80061; 80202; 80306; 80503; 81001; 81003; 81015; 81025; 82550; 82607; 82746; 82977; 83010; 83036; 83540; 83550; 83605; 83615; 83735; 84100; 84145; 84443; 85014; 85025; 85045; 85397; 85651; 86022; 86140; 86618; 86666; 86705; 86706; 86709; 86757; 86803; 87040; 87070; 87075; 87077; 87186; 87205; 87340; 87486; 87581; 87633; 87641; 87806; 92611; 94664; 96365; 96367; 96372; 97760; 99285; A9577; J1644; J2250; J2543; J2704; J2765; J3010; J3370; J3490; J7030; J7050; L4361; Q9967

== ENCOUNTER → 2023-12-01 09:18 | Outpatient (BNVA) | payer MEDICARE, OTHER, SELFPAY | PROVIDERS: PCP Physician Assistant; Visit Provider Thoracic Surgery (Cardiothoracic Vascular Surgery) | DX: I96 Gangrene, not elsewhere classified (principal); T23.352A Burn of third degree of left palm, initial encounter; X15.8XXA Contact with other hot household appliances, initial encounter | CPT/HCPCS: 97597; 97598; 99203 ==

== ENCOUNTER → 2023-12-07 13:53 | Outpatient (BNVA) | payer MEDICARE, OTHER, SELFPAY | PROVIDERS: PCP Physician Assistant; Visit Provider Thoracic Surgery (Cardiothoracic Vascular Surgery) | DX: I96 Gangrene, not elsewhere classified (principal); T23.35 Burn of third degree of palm; X15.8XXD Contact with other hot household appliances, subsequent encounter | CPT/HCPCS: 97597; 97598 ==

== ENCOUNTER → 2023-12-08 12:32 | Outpatient (BNVA) | payer MEDICARE, OTHER, SELFPAY | PROVIDERS: PCP Physician Assistant; Visit Provider Podiatrist Foot & Ankle Surgery | DX: Z98.890 Other specified postprocedural states (principal); L02.612 Cutaneous abscess of left foot; L03.116 Cellulitis of left lower limb; S91.332A Puncture wound without foreign body, left foot, initial encounter; L08.9 Local infection of the skin and subcutaneous tissue, unspecified; G71.00 Muscular dystrophy, unspecified; X58.XXXA Exposure to other specified factors, initial encounter | CPT/HCPCS: 99213 ==

== ENCOUNTER 2023-12-08 14:00 | Oncology outpatient (recurring) (ONCR) | payer OTHER, SELFPAY ==
[2023-12-01 14:00] VITALS: BP 114/71; PULSE 66; RESP 18; TEMP 37.2; O2SAT 99
[2023-12-01] MEDS: dalbavancin 1,500 MG in dextrose 5% 250 ML 500 MG IV (14:26)
[2023-12-01 15:01] VITALS: BP 122/76; PULSE 73; RESP 18; TEMP 36.9; O2SAT 98
[2023-12-08] MEDS: dalbavancin 500 MG in dextrose 5 % 100 ML 200 MG IV (15:12)
[2023-12-08 16:05] VITALS: BP 109/69; PULSE 68; RESP 16; TEMP 36.8; O2SAT 99
== END 2023-12-26 23:55 | disposition home or self-care (01) ==
PROVIDERS: PCP Physician Assistant; Visit Provider Student in an Organized Health Care Education/Training Program
DX: L03.116 Cellulitis of left lower limb (principal); L02.612 Cutaneous abscess of left foot; A49.02 Methicillin resistant Staphylococcus aureus infection, unspecified site; Z79.899 Other long term (current) drug therapy; Z53.9 Procedure and treatment not carried out, unspecified reason
CPT/HCPCS: 96365; J0875; J7060

== ENCOUNTER → 2023-12-14 11:08 | Outpatient (BNVA) | payer MEDICARE, OTHER, SELFPAY | PROVIDERS: PCP Physician Assistant; Visit Provider Thoracic Surgery (Cardiothoracic Vascular Surgery) | DX: I96 Gangrene, not elsewhere classified (principal); T23.35 Burn of third degree of palm; X15.8XXD Contact with other hot household appliances, subsequent encounter | CPT/HCPCS: 97597 ==

== ENCOUNTER → 2023-12-23 12:24 | Outpatient (BNVA) | payer MEDICARE, OTHER, SELFPAY | PROVIDERS: PCP Physician Assistant; Visit Provider Podiatrist Foot & Ankle Surgery | DX: L02.612 Cutaneous abscess of left foot (principal); L03.116 Cellulitis of left lower limb; S91.332A Puncture wound without foreign body, left foot, initial encounter; L08.9 Local infection of the skin and subcutaneous tissue, unspecified; G71.00 Muscular dystrophy, unspecified; Z98.890 Other specified postprocedural states; X58.XXXA Exposure to other specified factors, initial encounter | CPT/HCPCS: 99213 ==

== ENCOUNTER 2023-12-23 13:10 | Outpatient (RCR) | payer OTHER, SELFPAY | END 2023-12-26 23:59 | disposition home or self-care (01) | LOC: SOT 13:10 | PROVIDERS: PCP Physician Assistant; Visit Provider Physician Assistant | DX: G71.11 Myotonic muscular dystrophy (principal) | CPT/HCPCS: 97110; 97165; 97530 ==

== ENCOUNTER 2023-12-27 06:00 | Outpatient (RCR) | payer OTHER, SELFPAY | END 2024-01-25 23:59 | disposition home or self-care (01) | LOC: SOT 06:00 | PROVIDERS: PCP Physician Assistant; Visit Provider Physician Assistant | DX: G71.11 Myotonic muscular dystrophy (principal) | CPT/HCPCS: 97110; 97140 ==

== ENCOUNTER → 2024-01-04 10:33 | Outpatient (BNVA) | payer MEDICARE, OTHER, SELFPAY | PROVIDERS: PCP Physician Assistant; Visit Provider Thoracic Surgery (Cardiothoracic Vascular Surgery) | DX: I96 Gangrene, not elsewhere classified (principal); T23.35 Burn of third degree of palm; X15.8XXD Contact with other hot household appliances, subsequent encounter | CPT/HCPCS: 97597; A6021; A6248 ==

== ENCOUNTER → 2024-01-18 09:49 | Outpatient (BNVA) | payer MEDICARE, OTHER, SELFPAY | PROVIDERS: PCP Physician Assistant; Visit Provider Thoracic Surgery (Cardiothoracic Vascular Surgery) | DX: I96 Gangrene, not elsewhere classified (principal); T23.35 Burn of third degree of palm; X15.8XXD Contact with other hot household appliances, subsequent encounter | CPT/HCPCS: 97597; A6021; A6248 ==

== ENCOUNTER 2024-01-29 08:20 | Observation (INO) | payer OTHER, SELFPAY ==
[2024-01-29] VITALS (20 sets, daily range): BP systolic 100–125; BP diastolic 54–96; PULSE 54–90; RESP 14–18; TEMP 36.2–36.6; O2SAT 96–100; BMI 29.8
--- NOTE | 2024-01-29 08:30 | XR_ITS ---
WS: [id number] Exam: XR tibia fibula RT 2V [id number] Date/Time of Exam: 01/29/2024 8:43 AM Reason For Exam: trauma There is a spiral fracture at the lower metadiaphysis of the tibia with mild angulation. Th ere is also a comminuted spiral fracture of the lower metadiaphysis of the lower fibula with mild ang ulation. The remainder of the tibia and fibula are intact. Soft tissue swelling. XR/XR tibia fibula RT 2V [id number] IMPRESSION: 1. Spiral fractures of the lower tibia and fibula as described above.
--- NOTE | 2024-01-29 08:30 | XR_ITS ---
WS: [id number] Exam: XR ankle RT min 3V* [id number] Date/Time of Exam: 01/29/2024 8:43 AM Reason For Exam: trauma There is a spiral fracture of the lower metadiaphysis of the tibia with some separation and angulatio n with the apex of the fracture directed medially. There is also a comminuted mildly angulated fractu re of the lower metadiaphysis of the fibula. Moderately severe posttraumatic degenerative change of t he ankle mortise. There may be an old nonunion fracture at the tip of the fibula. Soft tissue swellin g about the ankle. Severe degenerative changes in the mid and hindfoot region. Orthopedic staple seen in the midfoot region. XR/XR ankle RT min 3V* [id number] IMPRESSION: 1. Angulated spiral fractures of the lower metadiaphysis of the tibia and fibul a as noted above. 2. Advanced degenerative changes of the mid and hindfoot as well as the ankle m ortise.
--- NOTE | 2024-01-29 09:00 | ED_ITS ---
HPI - Extremity Problem 2 General: Chief complaint: Extremity Injury, Lower Stated complaint: RLE pain Time Seen by Provider: 01/29/24 08:30 History of Present Illness: 34-year-old female who presents to the e mergency room with complaint of right lower leg pain. Patient was getting dressed this morning she slipped on a rug and fell and is unable to stand has severe pain in her right lower leg. She has a history of seizures she states she did not have a seizure. She also has a history of muscular dystrophy earlier this year she was admitted for a foot ulcer that seem to resolve she does have an ulcer on the left palm that she states is actually improving no other recent illness or injury. Associated symptoms: Deny chest pain, fever(s) or rash Related Data Home Medications Medication Instructions Recorded Confirmed lamotrigine 25 mg tablet (Lamictal) 50 mg PO QAM 11/20/23 01/29/24 levetiracetam 500 mg tablet 1,000 mg PO BID 11/20/23 01/29/24 (Keppra) ferrous sulfate 325 mg (65 mg 325 mg PO DAILY 01/29/24 01/29/24 iron) tablet ibuprofen 200 mg tablet (Advil) 600 mg PO Q6H PRN Pain 01/29/24 01/29/24 pantoprazole 20 mg tablet,delayed 20 mg PO BID 01/29/24 01/29/24 release Previous Rx's Medication Instructions Recorded alginate-carboxymethylcellulos 4 #50 ea 11/27/23 X 4 bandage (Maxorb) Allergies Allergy/AdvReac Type Severity Reaction Status Date / Time morphine Allergy ADR-Vomitin Verified 12/23/23 12:28 g sulfamethoxazole Allergy ADR-Vomitin Verified 12/23/23 12:28 [From Bactrim] g trimethoprim [From Bactrim] Allergy ADR-Vomitin Verified 12/23/23 12:28 g Review of Systems 2 Const: Denies: fever(s) or chills Card: Denies: chest pain Resp: Denies: dyspnea GI: Denies: abdominal pain : Denies: dysuria, urinary frequency or urinary urgency Musc: Reports: extremity pain; Denies: neck pain or back pain Skin/Breast: Denies: rash PFSH ED 2 PFSH: Medical History Osteomyelitis Fixation hardware in leg Orthopedic hardware present Muscular dystrophy Seizure disorder Surgical History Status post open reduction with internal fixation of fracture Family History Other Muscular dystrophy Seizure disorder Social History Smoking and tobacco/nicotine status: never used tobacco/nicotine Alcohol intake: never Caregiver/support person: Yes Household members: spouse Housing: House Marital status: Physical Exam 2 Const: GENERAL APPEARANCE: cooperative ORIENTATION/CONSCIOUSNESS: Yes awake, Yes oriented to person, Yes oriented to place and Yes oriented to time HENMT: COMMON NORMALS: normocephalic, atraumatic and hearing grossly normal bilaterally HEAD & SCALP: normocephalic and atraumatic Resp: COMMON NORMALS: normal respiratory effort, No retractions, No use of accessory muscles and clear to auscultation bilaterally AUSCULTATION: clear to auscultation bilaterally Cardio: COMMON NORMALS: regular rate, regular rhythm and No murmurs present (Cardio) RATE: regular rate RHYTHM: regular rhythm GI: COMMON NORMALS: Soft to palpation and No hepatosplenomegaly present A USCULTATION: Yes normoactive bowel sounds PALPATION: Yes Soft to palpation, No Tenderness to palpation present (GI), No Guarding due to palpation present (GI) and Yes No hepatosplenomegaly present Extremity: COMMON NORMALS: normal to inspection, capillary refill normal, no clubbing, cyanosis or edema, no calf tenderness and no pedal edema Neuro: SENSORIUM/ORIENTATION: Yes oriented to person, Yes oriented to place and Yes oriented to time Skin: COMMON NORMALS: no rashes or lesions noted GENERAL SKIN EXAM: no rashes or lesions noted Course 2 Vital Signs: Vital signs: Vital Signs Temperature 97.8 F 01/29/24 08:24 Pulse Rate 90 01/29/24 08:24 Respiratory Rate 16 01/29/24 09:18 Blood Pressure 125/96 01/29/24 08:24 Pulse Oximetry 100 01/29/24 09:18 Oxygen Delivery Me thod Room Air 01/29/24 08:24 MDM - Extremity (Nontraumatic) Medical Decision Making Discussed with Ortho. Fracture will require open reduction internal fixation. She has not eaten since yesterday will keep her n.p.o. Consult medicine. Admit to Dr. Pedersen. Orders written Lab Data 01/29/24 09:27 01/29/24 09:27 Radiology Impressions Ankle X-Ray 01/29/24 08:30 IMPRESSION: 1. Angulated spiral fractures of the lower metadiaphysis of the tibia and fibula as noted above. 2. Advanced degenerative changes of the mid and hindfoot as well as the ankle mortise. Tibia/Fibula X-Ray 01/29/24 08:30 IMPRESSION: 1. Spiral fractures of the lower tibia and fibula as described above. Laboratory Results WBC 9.82 10^3/uL (3.29-11.43) 01/29/24 09: RBC 4.08 10^6/uL (3.85-5.65) 01/29/24 09: Hgb 12.10 g/dL (11.27-16.99) 01/29/24 09: Hct 38.3 % (36-47) 01/29/24 09: MCV 93.9 fl (85-98) 01/29/24 09: MCH 29.7 pg (27-33) 01/29/24 09: MCHC 31.6 g/dL (30-55) 01/29/24 09: RDW 14.2 % (12.1-15.1) 01/29/24 09: Plt Count 104 10^3/cmm (157-399) L 01/29/24 09: MPV 11.9 fL (7.4-10.4) H 01/29/24 09:27 Neut % (Auto) 83.4 % 01/29/24 09: Lymph % (Auto) 10.1 % 01/29/24 09: Lyman % (Auto) 5.6 % 01/29/24 09: Eos % (Auto) 0.4 % 01/29/24 09:27 Baso % (Auto) 0.3 % 01/29/24 09:27 Neut # (Auto) 8.19 10^3/uL (1.8-7.7) H 01/29/24 09:27 Lymph # (Auto) 1.0 10^3/uL (0.8-4.8) 01/29/24 09:27 Lyman # (Auto) 0.6 10^3/uL (0.2-0.9) 01/29/24 09:27 Eos # (Auto) 0.0 10^3/uL (0.0-0.8) 01/29/24 09:27 Baso # (Auto) 0.0 10^3/uL (0.0-0.1) 01/29/24 09:27 Nucleated RBC % (auto) 0 % 01/29/24 09: Nucleated RBCs # 0.0 /100WBC 01/29/24 09: PT 13.00 SECONDS (12.1-14.9) 01/29/24 09: INR 0.96 (0.8-1.2) 01/29/24 09: APTT 17.4 SECONDS (23.9-36.7) L 01/29/24 09:27 Sodium 138 mmol/L (136-145) 01/29/24 09:27 Potassium 3.9 mmol/L (3.5-5.1) 01/29/24 09:27 Chloride 107 mmol/L (98-107) 01/29/24 09: Carbon Dioxide 21 mmol/L (22-29) L 01/29/24 09:27 Anion Gap 13.9 (5-19) 01/29/24 09:27 BUN 13 mg/dL (6-20) 01/29/24 09: Creatinine 0.4 mg/dL (0.5-0.9) L 01/29/24 09:27 GFR Calculation 181.6 mL/min (90-130) H 01/29/24 09:27 Glucose 111 mg/dL (65-115) 01/29/24 09: Calculated Osmolality 287 mOsm/kg (285-295) 01/29/24 09:27 Calcium 8.1 mg/dL (8.5-10.5) L 01/29/24 09:27 Total Bilirubin 0.3 mg/dL (0.15-1.2) 01/29/24 09:27 AST 30 U/L (0-32) 01/29/24 09:27 ALT 50 U/L (0-33) H 01/29/24 09:27 Alkaline Phosphatase 164 U/L (35-105) H 01/29/24 09:27 Total Protein 6.5 g/dL (6.6-8.7) L 01/29/24 09:27 Albumin 3.7 g/dL (3.5-5.2) 01/29/24 09:27 Globulin 2.8 g/dL (1.3-4.6) 01/29/24 09:27 All radiology interpretation(s) finalized by discharge Discharge Plan Discharge Patient Disposition: Admitted As Inpatient Clinical Impression: Tibia/fibula fracture, Muscular dystrophy, Skin ulcer of hand Condition: Stable Prescriptions: No Action levetiracetam [Keppra] 500 mg Tablet 1,000 mg PO BID lamotrigine [Lamictal] 25 mg Tablet 50 mg PO QAM (DME) Maxorb 4 X 4 bandage See Rx Instructions .Route Qty: 50 0RF Rx Instructions: As directed pantoprazole 20 mg Tablet,Delayed Release (Dr/Ec) 20 mg PO BID ferrous sulfate 325 mg (65 mg iron) tablet 325 mg PO DAILY ibuprofen [Advil] 200 mg Tablet 600 mg PO Q6H PRN (Reason: Pain) Referrals: May Valdivai PA [Primary Care Provider] - Coding Level of Care Code ED Stain Remover for Sunita Mcbride
--- NOTE | 2024-01-29 09:08 | ECG_ITS ---
[facility] Test Date: 2024-01-29 Pat Name: Belkys Thorne Department: Room: Gender: Female Apn: : 1990 Requested By: Todd Servin Order Number: [id number] Alessandra MD: Bernabe Pedro M.D. Measurements Intervals [place] Rate: 68 P: 67 TN: 180 QRS: 63 QRSD: 82 T: 44 QT: 407 QTc: 433 Interpretive Statements SINUS RHYTHM No previous ECG available for comparison Electronically Signed On 01-30-2024 20:54:32 CDT by Bernabe Pedro M.D. [id number]
[2024-01-29] MEDS: sodium chloride 0.9% 1,000 ML 999 ML IV (09:12)
[2024-01-29] MEDS: ondansetron 2 mg/ML SDV 2 mL 4 MG IVP (09:17)
[2024-01-29] MEDS: fentaNYL 50 mcg/mL INJ 2mL 25 MCG IVP (09:18)
[2024-01-29 09:34] LABS: Basophils % 0.3 %; Eosinophils % 0.4 %; Hematocrit 38.3 % (36-47); Lymphocytes % 10.1 %; Mean Corpuscular HGB Conc 31.6 g/dL (30-55); Mean Corpuscular Hemoglobin 29.7 pg (27-33); Mean Corpuscular Volume 93.9 fl (85-98); Mean Platelet Volume 11.9 fL (7.4-10.4); Monocytes # 0.6 10^3/uL (0.2-0.9); Monocytes % 5.6 %; Neutrophils # 8.19 10^3/uL (1.8-7.7); Neutrophils % 83.4 %; Nucleated Red Blood Cells % 0 %; Platelet Count 104 10^3/cmm (157-399); Red Blood Count 4.08 10^6/uL (3.85-5.65); Red Cell Distribution Width 14.2 % (12.1-15.1); White Blood Count 9.82 10^3/uL (3.29-11.43)
[2024-01-29 09:55] LABS: Alanine Aminotransferase 50 U/L (0-33); Albumin Level 3.7 g/dL (3.5-5.2); Alkaline Phosphatase 164 U/L (35-105); Anion Gap 13.9 (5-19); Aspartate Amino Transferase 30 U/L (0-32); Blood Urea Nitrogen 13 mg/dL (6-20); Calcium 8.1 mg/dL (8.5-10.5); Carbon Dioxide 21 mmol/L (22-29); Chloride 107 mmol/L (98-107); Creatinine Clr Calc Pharmacy 199.5419; Globulin 2.8 g/dL (1.3-4.6); Glomerular Filtration Rate 181.6 mL/min (90-130); Glucose 111 mg/dL (65-115); Osmolality Calculated 287 mOsm/kg (285-295); Potassium 3.9 mmol/L (3.5-5.1); Sodium 138 mmol/L (136-145); Total Bilirubin 0.3 mg/dL (0.15-1.2); Total Protein 6.5 g/dL (6.6-8.7)
[2024-01-29 10:02] LABS: INR 0.96 (0.8-1.2)
[2024-01-29 10:03] LABS: Partial Thromboplastin Time 17.4 SECONDS (23.9-36.7)
--- NOTE | 2024-01-29 10:03 | P.CONIM_ITS ---
Providers/Reason For Consult 2 Consulting Physician/Specialty*: Antonio Bertrand MD, hospitalist Reason for Consult*: Fracture, medical management Requesting Physician: Dr. Saavedra Primary Care Provider: May Valdivia History of Present Illness History of Present Illness Belkys Thorne is a 34 year old female who presents with a mechanical fall this morning sustaining a fracture to her right distal tibia and fibula. Orthopedics is admitting under an observation category for likely surgical repair. I have been asked to see her secondary to her muscular dystrophy and seizure disorder. She reports her seizure disorder is well-controlled on current medications, and with no seizures in the last several years. She reports she must take brand- name medicine. She did have a foot abscess, with an admission in November which is since healed. This was on the left. She also has a left hand skin breakdown which she is using wound care products on. She denies any recent fevers, issues with anesthesia. Review of Systems 2 General: Reports: 10 or more systems reviewed and unremarkable except in HPI and below Medications/Allergies Home Medications Medication Instructions Recorded Confirmed Last Taken Type lamotrigine 25 mg tablet (Lamictal) 50 mg PO QAM 11/20/23 01/29/24 01/29/24 History levetiracetam 500 mg tablet 1,000 mg PO BID 11/20/23 01/29/24 01/29/24 History (Keppra) alginate-carboxymethylcellulos 4 #50 ea 11/27/23 01/29/24 Unknown Rx X 4 bandage (Maxorb) ferrous sulfate 325 mg (65 mg 325 mg PO DAILY 01/29/24 01/29/24 01/29/24 History iron) tablet ibuprofen 200 mg tablet (Advil) 600 mg PO Q6H PRN Pain 01/29/24 01/29/24 01/28/24 21:00 History pantoprazole 20 mg tablet,delayed 20 mg PO BID 01/29/24 01/29/24 01/29/24 History release Allergies Allergy/AdvReac Type Severity Reaction Status Date / Time morphine Allergy ADR-Vomitin Verified 12/23/23 12:28 g sulfamethoxazole Allergy ADR-Vomitin Verified 12/23/23 12:28 [From Bactrim] g trimethoprim [From Bactrim] Allergy ADR-Vomitin Verified 12/23/23 12:28 g Current Medications Generic Name Dose Route Start Last Admin Trade Name Freq PRN Reason Stop Dose Admin Sodium Chloride 1,000 mls @ 999 mls/hr 01/29/24 09:04 01/29/24 09:12 Sodium Chloride 0.9% IV 01/29/24 10:04 999 mls/hr .Q1H1M ONE Administration PFSH Acute 2 PFSH: Medical History Osteomyelitis Fixation hardware in leg Orthopedic hardware present Muscular dystrophy Seizure disorder Surgical History Status post open reduction with internal fixation of fracture Family History Other Muscular dystrophy Seizure disorder Social History Smoking and tobacco/nicotine status: never used tobacco/nicotine Alcohol intake: never Caregiver/support person: Yes Household members: spouse Housing: House Marital status: Vitals/I&O/Wt Last Vital Signs Temp 97.8 F 01/29/24 08:24 Pulse 90 01/29/24 08:24 Resp 16 01/29/24 09:18 BP 125/96 01/29/24 08:24 Pulse Ox 100 01/29/24 09:18 O2 Del Method Room Air 01/29/24 08:24 Weight last 48 hrs Weight 78.925 kg Physical Exam 2 Narrative: General Exam is white female, who can give much of her own history HEENT: Atraumatic normocephalic. Oropharynx clear. Neck is supple Cardiovascular regular rate and rhythm Lungs clear Abdomen soft, nontender, no obvious organomegaly exam is deferred Extremities multiple different fusions, contractures, and digit amputations. Left palm with an open ulcer, with no evidence of infection, with some granulation tissue around the edges. Left foot appears well-healed. Small scab on the bottom. Right foot with capillary refill good. Pulses palpable. Contusions/distortion noted just distal to the mid miranda, overlying the tibia and fibula Data 01/29/24 09:27 01/29/24 09:27 Other Labs: EKG I reviewed normal sinus rhythm, no acute changes X-rays I reviewed demonstrates a tibia-fibula fracture A&P Assessment and plan (1) Tibia/fibula fracture: Acute. Associated with mechanical fall. Orthopedics managing Pain control per orthopedics, and possible surgery. (2) Thrombocytopenia: Chronic, monitor. Likely secondary to seizure medication. (3) Seizure disorder: Patient with well-controlled seizure disorder on current current medicines. Continue current medicines. (4) Transaminitis: Improved. Previous screening for hepatitis negative (5) Muscular dystrophy: Chronic, fall prevention Plan Left hand lesion. Continue alginate once daily, keep pressure off area Full code Hold on DVT prophylaxis currently, defer to primary as possible surgery eminent and lower leg fracture. Thank you for this consultation Consult Attestations 2 Medical Necessity Statement: As per primary Diagnoses Tibia/fibula fracture S82.209A; S82.409A Thrombocytopenia D69.6 Seizure disorder G40.909 Transaminitis R74.01 Muscular dystrophy G71.00 Time Spent (min) 40
--- NOTE | 2024-01-29 11:43 | P.ANESASSM_ITS ---
Pre-Anesthetic Assessment Height/Weight: Height 5 ft 4 in Weight 174 lb Temp Pulse Resp BP Pulse Ox O2 Del Method 97.8 F 90 16 125/96 100 Room Air 01/29/24 08:24 01/29/24 08:24 01/29/24 09:18 01/29/24 08:24 01/29/24 09:18 01/29/24 08:24 Operation Date: 01/29/24 13:00 Proposed Procedures p ORIF Tibia w/intermedullary rods(Right) - Allegra Saavedra MD Anesthetic Plan Other: No prior issues with anesthesia Patient slipped on a rug today which resulted in a tibia/fibula fracture. NPO since History of seizures, Muscular dystrophy Labs 01/29/2024 reviewed and acceptable for procedure, hemoglobin 12.1 EKG sinus rhythm Medications/Allergies Home Medications Medication Instructions Recorded Confirmed Last Taken Type lamotrigine 25 mg tablet (Lamictal) 50 mg PO QAM 11/20/23 01/29/24 01/29/24 History levetiracetam 500 mg tablet 1,000 mg PO BID 11/20/23 01/29/24 01/29/24 History (Keppra) alginate-carboxymethylcellulos 4 #50 ea 11/27/23 01/29/24 Unknown Rx X 4 bandage (Maxorb) ferrous sulfate 325 mg (65 mg 325 mg PO DAILY 01/29/24 01/29/24 01/29/24 History iron) tablet ibuprofen 200 mg tablet (Advil) 600 mg PO Q6H PRN Pain 01/29/24 01/29/24 01/28/24 21:00 History pantoprazole 20 mg tablet,delayed 20 mg PO BID 01/29/24 01/29/24 01/29/24 History release Allergies Allergy/AdvReac Type Severity Reaction Status Date / Time morphine Allergy ADR-Vomitin Verified 12/23/23 12:28 g sulfamethoxazole Allergy ADR-Vomitin Verified 12/23/23 12:28 [From Bactrim] g trimethoprim [From Bactrim] Allergy ADR-Vomitin Verified 12/23/23 12:28 g PFSH Anesthesia Medical History Osteomyelitis Fixation hardware in leg Orthopedic hardware present Muscular dystrophy Seizure disorder Surgical History Status post open reduction with internal fixation of fracture Family History Other Muscular dystrophy Seizure disorder Social History Smoking and tobacco/nicotine status: never used tobacco/nicotine Alcohol intake: never Caregiver/support person: Yes Household members: spouse Housing: House Marital status: Data Anesthesia 01/29/24 09:27 01/29/24 09:27 Short CBC 01/29/24 Range/Units 09:27 WBC 9.82 (3.29-11.43) 10^3/uL Hgb 12.10 (11.27-16.99) g/dL Hct 38.3 (36-47) % MCV 93.9 (85-98) fl Plt Count 104 L (157-399) 10^3/cmm Neut % (Auto) 83.4 % Neut # (Auto) 8.19 H (1.8-7.7) 10^3/uL BMP 01/29/24 09:27 Sodium 138 Potassium 3.9 Chloride 107 Carbon Dioxide 21 L BUN 13 Creatinine 0.4 L Glucose 111 Calcium 8.1 L Liver Function 01/29/24 Range/Units 09:27 Total Bilirubin 0.3 (0.15-1.2) mg/dL AST 30 (0-32) U/L ALT 50 H (0-33) U/L Alkaline Phosphatase 164 H (35-105) U/L Albumin 3.7 (3.5-5.2) g/dL Coags 01/29/24 09:27 PT 13.00 INR 0.96 APTT 17.4 L Cardiac Studies: 2 No Data to Display
[2024-01-29] MEDS: sodium chloride 0.9% 1,000 ML 30 ML IV (12:23)
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
[2024-01-29] MEDS: acetaminophen 1,000 MG/100 ML PIGGYBACK 400 MG IV (13:54)
[2024-01-29] MEDS: gabapentin 300 mg Capsule PO (13:54)
[2024-01-29] MEDS: vancomycin 1,000 MG in sodium chloride 0.9% 250 ML 250 MG IV (14:02)
[2024-01-29] MEDS: ceFAZolin 2,000 mg SDV 2000 MG IVP ×2 (14:02→21:12)
[2024-01-29] MEDS: ceFAZolin 1,000 mg SDV 1000 MG IRRIGATION (15:02)
--- NOTE | 2024-01-29 16:42 | XR_ITS ---
WS: [id number] XR tibia fibula RT 2V [id number] REASON FOR EXAM: OR PICS FINDINGS: Intraoperative of the proximal right tibia and fibula. Spiral fractures of the distal right tibia and fibula with intramedullary kevin fixation of the distal right tibial fracture. Surgical appliances are intact and in proper position and alignment. XR/XR tibia fibula RT 2V [id number] IMPRESSION: Distal right tibial and fibular fractures with fixation as above.
--- NOTE | 2024-01-29 17:12 | XRR_ITS ---
PROCEDURE INFORMATION: Exam: XR Right Tibia and Fibula Exam date and time: 01/29/2024 5:12 PM Age: 34 years old Clinical indication: Screening exam; Post op orif tibia right TECHNIQUE: Imaging protocol: Radiologic exam of the right tibia and fibula. Views: 2 views. COMPARISON: OT XR tibia fibula RT 2V [id number] 01/29/2024 1:45 PM FINDINGS: Bones/joints: Internal fixation kevin and interlocking screws in the tibia as well as overlying surgical sukh. Previous oblique fractures of the distal tibia and fibula are now in nearly anatomic alignment. Minimal posterior offset without significant angulation. Soft tissues: Overlying soft tissue swelling as expected. XR/XR tibia fibula RT 2V [id number] IMPRESSION: Expected postsurgical changes status post interval internal fixation of distal tibial fracture. Minimal offset of the distal fibular fracture without angulation.
--- NOTE | 2024-01-29 17:26 | ANE.PACU2 ---
Inpatient post-anesthesia follow up: Airway intact: Yes Vital signs: Temperature 97.7 F Pulse Rate 61 Respiratory Rate 16 Blood Pressure 119/69 Pulse Oximetry 98 Oxygen Delivery Me thod Room Air Oxygen Flow Rate 8 Fraction of Inspir ed Oxygen Hydration adequate: Yes Nausea and vomiting: No Pain level: 2 Mental status: Baseline
--- NOTE | 2024-01-29 17:32 | P.OP_ITS ---
Operative Report Date of procedure: January 29, 2024 Pre-op diagnosis: Right distal spiral oblique fracture tibia with fibular shaft fracture distally Post-op diagnosis: Right distal spiral oblique fracture tibia with fibular shaft fracture distally Post-op findings: Long oblique spiral fracture, unstable Procedure done: Open reduction internal fixation left tibial shaft fracture utilizing Kristen intramedullary nail Implants: The Kristen T2 tibial system with a size 9 mm x 330 mm tibial nail, 2 locking screws proximally and 1 locking screw distally as well as an 11.5 mm x 10 mm end cap Specimens removed/disposition: None Surgeon: Allegra Saavedra MD School Administrator: Gwen Benson School Administrator: Whose services were required for positioning of the fracture, maintenance of fracture reduction, positioning, retraction, and closure. Anesthesia: General (Per LMA) Estimated blood loss (mL): 50 Tourniquet time (min): 0 (Not utilized) IV fluids (mL): 1,200 Urine output (mL): 0 (No Gonzalez) Complications: None Findings: Unstable oblique distal tibial shaft fracture Condition: stable Disposition: PACU (Then to floor under observation status) Brief History: This 34-year-old woman presented to the emergency department after a fall at home when she tripped on some carpet after putting on her pants. Secondary to her multiple medical issues, she was evaluated preoperatively by the medical service in the emergency department. They felt it was safe for her to proceed with surgical intervention. Therefore, the patient was taken to the operating room. Risks and complications were discussed with the patient and her family prior to presentation for surgical intervention. Plan was to place an intramedullary nail. The patient has a history of MRSA and therefore is very high risk. Procedure: Patient was seen in the preoperative holding area and leg was marked. Patient was brought to the operating theater and placed on the operating room table. Af ter undergoing adequate general anesthesia per LMA, the patient's right lower extremity was prepped and draped in usual fashion utilizing DuraPrep. The leg was draped free. Fluoroscopy was used throughout the surgical procedure. We did have a tourniquet high on the left lower extremity, but this was not elevated for the surgical procedure. A surgical pause was performed. At the time of the surgical pause we identified the site and side of surgery as well as the patient's identity and availability of equipment. We also confirmed appropriate administration of IV antibiotics, Ancef 2 g as well as vancomycin secondary to the patient's history of MRSA. Additionally, fluoroscopy was utilized throughout the surgical procedure. The tibial fracture was visualized in AP and lateral planes. We were also able to visualize the knee and this was assured prior to commencement of the surgical procedure. A large tong type clamp was utilized after 2 small incisions were made medially and laterally with fluoroscopic guidance. The tong was able to be placed and held fragment in position throughout the surgical procedure. Incision was made along the medial aspect of the patellar tendon. Dissection continued through skin and soft tissue using a scalpel. Hemostasis was obtained using electrocautery. We were able to retract the medial aspect of the patellar tendon laterally. Fluoroscopy was utilized to determine appropriate entry point for the guidewire. Guidewire was placed into position, and then proximal reaming was accomplished over this with protection of the patellar ligament. Af ter we had reamed proximally, we were able to place a long ball-tipped guidewire which was placed through this previously reamed area and down through the fracture site under fluoroscopic guidance. Once we confirmed that we were in the ankle area with AP and lateral imaging, reaming was begun. Once the guidewire was noted to be in appropriate position, reaming was begun. We began to have chatter very early on, so the decision was made to place a 9 mm nail which required reaming to 10.5 mm. We are able to pass reamers under fluoroscopic guidance from the knee to the ankle. There was no displacement at the fracture site. Once we had reamed to a 10.5, the appropriate length nail was chosen. As soon as the guidewire was in position, we measured and chose a 330 mm nail. Following reaming while the guidewire was still in position, we were able to pass the nail over the guidewire and monitored its progress through the fracture site as it was passed distally down to the ankle joint. The fracture was better reduced with the tibial nail in position. Care was taken to assure it was in appropriate position in AP and lateral planes. Once this nail was in position, the guidewire was removed. Fluoroscopy was again utilized as well as the proximal jig to place locking screws. a perfect umkumiut technique was used to place an anterior to posterior distal screw. Only 1 screw was placed secondary to concern for possible migration of the fracture. The screws length and position was confirmed in AP and lateral planes. Attention was then directed proximally. Locking screws were placed proximally 1 from the lateral position 1 straight across the tibia and the other in an oblique fashion from the medial aspect. Appropriate size screws were chosen. Once all screws were in position, all wounds were copiously irrigated. Attention was directed to closure. Proximally, the knee wound was closed with 0 Vicryl in the fascial tissues in an interrupted fashion. Subcutaneous tissues were closed with 2-0 Monocryl in an interrupted fashion as well. Incisions were then closed with skin sukh. The leg was washed and the incisions including the sukh were covered with Xerofor m gauze. This was followed by 4 x 4's, and ABD, sterile soft roll, and Didier wrap, and the patient was placed in a fracture boot. Once again, there was no elevation of the tourniquet or exsanguination of the leg. Preoperatively, there were noted to be small fracture blisters particularly medially. After the dressing was in place, the patient was placed in a cam walker boot which will remain in place until she follows up in the office. The patient will be discharged to the floor under observation status for continuation of IV antibiotics secondary to her high risk of infection and multiple other medical issues. Related Problem List Diagnoses (1) Fracture of tibial shaft, right, closed: (2) Fracture closed, fibula, shaft:
[2024-01-29] MEDS: pantoprazole DR 40 mg Tablet PO (18:14)
[2024-01-29] MEDS: D5-NS 0.45% + KCL 20 mEq 20 MEQ/1,000 ML BAG 125 MEQ IV (18:15)
[2024-01-29] MEDS: oxyCODONE 5 mg IR Tab/Cap PO (18:15)
[2024-01-29] MEDS: HYDROmorphone 1 mg/mL INJ 1 mL 0.5 MG IVP (21:11)
[2024-01-30] VITALS (10 sets, daily range): BP systolic 97–115; BP diastolic 59–79; PULSE 54–80; RESP 13–17; TEMP 36.4; O2SAT 96–100
[2024-01-30] MEDS: D5-NS 0.45% + KCL 20 mEq 20 MEQ/1,000 ML BAG 125 MEQ IV ×2 (02:02→08:35)
[2024-01-30] MEDS: HYDROmorphone 1 mg/mL INJ 1 mL 0.5 MG IVP ×2 (02:07→08:31)
[2024-01-30] MEDS: LAMICTAL 25 MG 2 EACH PO (07:22)
[2024-01-30] MEDS: ceFAZolin 2,000 mg SDV 2000 MG IVP (07:23)
[2024-01-30] MEDS: pantoprazole DR 40 mg Tablet PO (08:26)
[2024-01-30] MEDS: TRAMadol 50 mg Tablet PO (10:27)
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
== END 2024-01-30 13:54 | disposition home or self-care (01) ==
LOC: ER 11:11 → OR 11:55 → MEDSURG 13:40
PROVIDERS: Student in an Organized Health Care Education/Training Program; Admitting Provider Specialist; Emergency Provider Family Medicine; PCP Physician Assistant; Visit Provider Specialist
PROC: 0QSK04Z Reposition Left Fibula with Internal Fixation Device, Open Approach (ICD-10-PCS; CPT 27828; principal; 2024-01-29 13:00)
DX: S82.231A Displaced oblique fracture of shaft of right tibia, initial encounter for closed fracture (principal); S82.431A Displaced oblique fracture of shaft of right fibula, initial encounter for closed fracture; W01.0XXA Fall on same level from slipping, tripping and stumbling without subsequent striking against object, initial encounter; A49.02 Methicillin resistant Staphylococcus aureus infection, unspecified site; G71.00 Muscular dystrophy, unspecified; D69.6 Thrombocytopenia, unspecified; G40.909 Epilepsy, unspecified, not intractable, without status epilepticus
CPT/HCPCS: 27759; 36415; 73590; 73610; 76000; 80053; 84702; 85025; 85610; 85730; 93005; 96374; 96375; 97161; 97165; 97530; 99285; C1713; G0378; J0131; J0690; J1100; J1170; J2250; J2405; J2704; J3010; J3370; J7030; J7050

== ENCOUNTER → 2024-02-08 15:04 | Outpatient (BNVA) | payer MEDICARE, OTHER, SELFPAY | PROVIDERS: PCP Physician Assistant; Visit Provider Thoracic Surgery (Cardiothoracic Vascular Surgery) | DX: I96 Gangrene, not elsewhere classified (principal); T23.35 Burn of third degree of palm; X15.8XXD Contact with other hot household appliances, subsequent encounter | CPT/HCPCS: 97597; A6021; A6248 ==

== ENCOUNTER → 2024-02-15 15:17 | Outpatient (BNVA) | payer MEDICARE, OTHER, SELFPAY | PROVIDERS: PCP Physician Assistant; Visit Provider Thoracic Surgery (Cardiothoracic Vascular Surgery) | DX: I96 Gangrene, not elsewhere classified (principal); T23.35 Burn of third degree of palm; X15.8XXD Contact with other hot household appliances, subsequent encounter | CPT/HCPCS: 97597; A6021; A6248 ==

== ENCOUNTER → 2024-02-17 10:15 | Outpatient (BNVA) | payer MEDICARE, OTHER, SELFPAY | PROVIDERS: PCP Physician Assistant; Visit Provider Podiatrist Foot & Ankle Surgery | DX: L02.612 Cutaneous abscess of left foot (principal); L03.116 Cellulitis of left lower limb; S91.332A Puncture wound without foreign body, left foot, initial encounter; L08.9 Local infection of the skin and subcutaneous tissue, unspecified; G71.00 Muscular dystrophy, unspecified; Z98.890 Other specified postprocedural states; X58.XXXA Exposure to other specified factors, initial encounter | CPT/HCPCS: 99213 ==

== ENCOUNTER → 2024-02-17 11:07 | Outpatient (BNVA) | payer OTHER, SELFPAY | PROVIDERS: PCP Physician Assistant; Visit Provider Specialist | DX: S82.831D Other fracture of upper and lower end of right fibula, subsequent encounter for closed fracture with routine healing; S82.241D Displaced spiral fracture of shaft of right tibia, subsequent encounter for closed fracture with routine healing; X58.XXXD Exposure to other specified factors, subsequent encounter | CPT/HCPCS: 73590 ==

== ENCOUNTER → 2024-02-23 08:15 | Outpatient (BNVA) | payer MEDICARE, OTHER, SELFPAY | PROVIDERS: PCP Physician Assistant; Visit Provider Thoracic Surgery (Cardiothoracic Vascular Surgery) | DX: I96 Gangrene, not elsewhere classified (principal); T23.35 Burn of third degree of palm; X15.8XXD Contact with other hot household appliances, subsequent encounter | CPT/HCPCS: 97597; A6021; A6248; A6446 ==

== ENCOUNTER → 2024-03-11 09:08 | Outpatient (BNVA) | payer MEDICARE, OTHER, SELFPAY | PROVIDERS: PCP Physician Assistant; Visit Provider Thoracic Surgery (Cardiothoracic Vascular Surgery) | DX: I96 Gangrene, not elsewhere classified (principal); T23.35 Burn of third degree of palm; X15.8XXD Contact with other hot household appliances, subsequent encounter | CPT/HCPCS: 97597; A6021 ==

== ENCOUNTER → 2024-03-16 13:13 | Outpatient (BNVA) | payer OTHER, SELFPAY | PROVIDERS: PCP Physician Assistant; Visit Provider Specialist | DX: S82.831D Other fracture of upper and lower end of right fibula, subsequent encounter for closed fracture with routine healing; X58.XXXD Exposure to other specified factors, subsequent encounter | CPT/HCPCS: 73590 ==

== ENCOUNTER 2024-04-01 10:57 | Outpatient (CLI) | payer OTHER, SELFPAY | END 2024-04-01 10:58 | disposition home or self-care (01) | LOC: SOT 11:06 | PROVIDERS: PCP Physician Assistant; Visit Provider Thoracic Surgery (Cardiothoracic Vascular Surgery) | DX: Z46.89 Encounter for fitting and adjustment of other specified devices (principal); G71.11 Myotonic muscular dystrophy | CPT/HCPCS: 97760; L3906 ==

== ENCOUNTER 2024-04-08 12:47 | Outpatient (CLI) | payer OTHER, SELFPAY ==
--- NOTE | 2024-04-08 12:54 | XR_ITS ---
WS: [id number] Exam: XR hand RT min 3V* [id number] Date/Time of Exam: 04/08/2024 12:58 PM Reason For Exam: non-healing ulcer; edema; redenss; r/o osteo of 4th digit There is marked soft tissue swelling of the fourth and fifth fingers. A pin bridges a fracture in the middle phalanx of the fifth finger. The fracture is in good position. The distal phalanx of the four th finger has been amputated. No sign of bone destruction to suggest acute osteomyelitis at this time . There is been amputation of the third finger near the PIP joint. There is been amputation of the in dex finger at the level of the proximal end of the middle phalanx. An orthopedic pin with arthrodesis bridges the DIP joint of the thumb. XR/XR hand RT min 3V* [id number] IMPRESSION: 1. No sign of osteomyelitis. 2. Postoperative changes as detailed above. 3. Fracture in the middle phalanx of the fifth finger stabilized with an orthop edic screw. Alignment is satisfactory. 4. Marked soft tissue swelling of the fourth and fifth fingers.
== END 2024-04-08 12:48 | disposition home or self-care (01) ==
PROVIDERS: PCP Physician Assistant
DX: L08.9 Local infection of the skin and subcutaneous tissue, unspecified (principal); L98.499 Non-pressure chronic ulcer of skin of other sites with unspecified severity; M24.541 Contracture, right hand; S62.626D Displaced fracture of middle phalanx of right little finger, subsequent encounter for fracture with routine healing; X58.XXXD Exposure to other specified factors, subsequent encounter; Z89.021 Acquired absence of right finger(s); Z96.698 Presence of other orthopedic joint implants
CPT/HCPCS: 73130

== ENCOUNTER → 2024-04-13 13:04 | Outpatient (BNVA) | payer OTHER, SELFPAY | PROVIDERS: PCP Physician Assistant; Visit Provider Specialist | DX: S82.831D Other fracture of upper and lower end of right fibula, subsequent encounter for closed fracture with routine healing; S82.241D Displaced spiral fracture of shaft of right tibia, subsequent encounter for closed fracture with routine healing; X58.XXXD Exposure to other specified factors, subsequent encounter | CPT/HCPCS: 73590 ==

== ENCOUNTER 2024-04-14 10:07 | Day surgery (SDC) | payer OTHER, SELFPAY ==
[2024-04-14] VITALS (8 sets, daily range): BP systolic 108–142; BP diastolic 59–79; PULSE 65–84; RESP 12–18; TEMP 36.3–36.9; O2SAT 98–100
[2024-04-14] MEDS: sodium chloride 0.9% 1,000 ML 30 ML IV (11:13)
[2024-04-14 11:42] LABS: HCG, Serum Qual Negative (Negative)
--- NOTE | 2024-04-14 12:09 | ANES.PREANE2 ---
Pre-Anesthetic Assessment Height/Weight: Height 1.63 m Weight 79.379 kg Temp Pulse Resp BP Pulse Ox O2 Del Method 98.3 F 84 18 142/79 100 Room Air 04/14/24 10:56 04/14/24 10:56 04/14/24 10:56 04/14/24 10:56 04/14/24 10:56 04/14/24 10:56 Operation Date: 04/14/24 11:50 Proposed Procedures p Right small finger amputation(Right) - Kali Gayla, DO Familial anesthetic complications: None Was Beta Gerson taken within 24 hours: N/A Was Clonidine taken within 24 hours: N/A Last intake: Intake Last Liquid Date 04/13/24 Last Liquid Time 19:30 Last Solid Date 04/13/24 Last Solid Time 19:30 Social No alcohol and No tobacco Exam alert, oriented x 3, clear to auscultation bilaterally and regular rate & rhythm GI Gastroesophageal Reflux Disease Metabolic Muscular dystrophy Neuropsych Seizure Anesthetic Plan ASA status: 3 Anesthesia: MAC (MAC vs local) Risk of > 500 ml blood loss (7ml/kg in children): No Medications/Allergies Home Medications Medication Instructions Recorded Confirmed Last Taken Type lamotrigine 25 mg tablet (Lamictal) 50 mg PO QAM 11/20/23 04/13/24 04/14/24 History levetiracetam 500 mg tablet 1,000 mg PO BID 11/20/23 04/13/24 04/14/24 History (Keppra) alginate-carboxymethylcellulos 4 #50 ea 11/27/23 04/13/24 Unknown Rx X 4 bandage (Maxorb) ibuprofen 200 mg tablet (Advil) 600 mg PO Q6H PRN Pain 01/29/24 04/13/24 01/28/24 21:00 History pantoprazole 20 mg tablet,delayed 20 mg PO BID 01/29/24 04/13/24 04/14/24 History release cephalexin 500 mg capsule 500 mg PO TID #21 caps 04/08/24 04/13/24 04/14/24 Rx Patellar Tendon Bearing Brace, #1 ea 04/13/24 04/13/24 Unknown Rx right Allergies Allergy/AdvReac Type Severity Reaction Status Date / Time morphine Allergy ADR-Vomitin Verified 04/13/24 13:33 g sulfamethoxazole Allergy ADR-Vomitin Verified 04/13/24 13:33 [From Bactrim] g trimethoprim [From Bactrim] Allergy ADR-Vomitin Verified 04/13/24 13:33 g Current Medications Generic Name Dose Route Start Last Admin Trade Name Ronn PRN Reason Stop Dose Admin Sodium Chloride 1,000 mls @ 30 mls/hr 04/14/24 10:30 04/14/24 11:13 Sodium Chloride 0.9% IV 04/15/24 10:29 30 mls/hr .Q24H RADHA Administration PFSH Anesthesia Medical History Fracture of distal end of fibula Fracture of tibial shaft, right, closed Osteomyelitis Fixation hardware in leg Orthopedic hardware present Muscular dystrophy Seizure disorder Surgical History Status post open reduction with internal fixation of fracture Family History Other Muscular dystrophy Seizure disorder Social History Smoking and tobacco/nicotine status: never used tobacco/nicotine Alcohol intake: never Caregiver/support person: Yes Household members: spouse Housing: House Marital status: Data Anesthesia Cardiac Studies: No Data to Display
--- NOTE | 2024-04-14 12:25 | W.PM.OPSUD ---
Surgery/Procedure H&P Update DATE OF PROCEDURE: April 14, 2024 DATE H&P PERFORMED: 04/08/24 H&P UPDATE INFORMATION: I have reviewed H&P completed within last 30 days, I have examined patient prior to procedure and No changes to prior documentation PREOP DIAGNOSIS: Right small finger infection and contracture and skin ulceration PRIMARY INDICATION FOR PROCEDURE: Right small finger infection and contracture and skin ulceration PLANNED PROCEDURE: Operation Date: 04/14/24 11:50 Proposed Procedures p Right small finger amputation(Right) - Kali Shukla DO
[2024-04-14] MEDS: ceFAZolin 2,000 MG in sodium chloride 0.9% (plus) 50 ML 100 MG IV (12:40)
[2024-04-14] MEDS: ROPivacaine 0.5% SDV 30 mL 25 MG INJECTION (13:08)
[2024-04-14] MEDS: BUPivacaine 0.25% INJ 10 mL 5 ML INJECTION (13:09)
--- NOTE | 2024-04-14 13:40 | W.PM.BPON ---
Date of Procedure: 04/14/2024 Surgeon: Kali Shukla DO Order Checker Packer Processer(s): None Procedure(s) performed: Right small finger amputation at the level of the PIP joint Findings of the procedure(s): Right small finger infection osteomyelitis with exposed hardware underwent amputation at the PIP joint level resection of bone was removed at the level of the PIP joint. Underwent procedure as planned without issues or complications sent the resected part of the finger for specimen/pathology. Patient did this local only and tolerated procedure well without issues or complications Estimated blood loss: 2 mL Specimen(s) removed: Fingertip amputation removed and sent for pathology Post-operative diagnosis: Right small finger infection with exposed bone and previous contracture and ulcerations
--- NOTE | 2024-04-14 13:42 | PM.OP ---
Operative Report Date of procedure: April 14, 2024 Pre-op diagnosis: Right small finger infection osteomyelitis and previous fusion with hardware Post-op diagnosis: Same Post-op findings: See operative report narrative Procedure done: Right small finger amputation at level of the PIP joint Implants: None Specimens removed/disposition: Right small finger amputation at the PIP joint sent for specimen Surgeon: Kali Shukla DO Kindergartners Helper: None Anesthesia: Local Estimated blood loss: 2 mL Finger tourniquet 20 minutes IV fluids: 600 mL Urine output: None Complications: None Findings: See operative report narrative Condition: stable Disposition: same day Brief History: Patient is a pleasant 34-year-old female with a right small finger distal tip to infection and ulceration communicating down to bone as well as contractures appreciated. Patient has history of muscular dystrophy. She has had multiple surgeries on her hands. At this point in time given this open wound and communication directly down to bone and lack of function for this we talked about her treatment options she has had amputation of the finger in the past for very similar condition at this point time document this with patient and family in the office and through shared decision making she elects proceed with surgical intervention for a right small finger amputation. She understands the ins outs procedure risk benefits complication alternatives surgery and through shared decision make elects proceed with surgical invention. All questions answered. Procedure: Patient seen eval in the preoperative holding area. Consent was reviewed and signed with patient. Correct digit was then subsequently marked. At this point in time we talked about detail and patient elected proceed with MAC local anesthesia. Once cleared for surgery taken back to the operative suite kept on the [facility]. Armboard applied to right upper extremity. Nonsurgical tourniquet applied to the right upper extremity. Patient then underwent anesthesia per the department. The right upper extremities then prepped and draped in standard orthopedic fashion. Final timeout performed. Patient received appropriate perioperative antibiotics. Patient at this point in time and a sterile digital block performed of the right small finger a finger tourniquet was placed at the right small finger and then at this point in time I then subsequently approach to the ulceration is came down directly onto bone and the prominence of the hardware. There is no appreciable drainage or purulence noted. At this point in time given the hardware extended to the PIP joint plan was to be for a right small finger amputation at the level of the PIP joint. I then subsequently made a fishmouth incision over the PIP joint sharp scalpel incision was made through skin and switched to Littler dissection scissors dissected out the neurovascular bundles traction neurectomies were performed as well as electrocautery neurovascular bundle. At this point in time I then subsequently a sharp scalpel excision to excise the capsule at the PIP joint and disarticulated at the PIP joint there was no evidence of infection or purulence in this area. The tendons were placed on traction and excised. This point time I utilized a rongeur to rongeur off the proximal phalanx condyle to make this appropriately contoured as well as remove the cartilage. At this point time thorough irrigation performed finger tourniquet removed hemostasis satisfactory bipolar electrocautery. The amputated finger was sent for specimen/pathology. I then subsequently utilized nylon suture to close this interrupted fashion to have appropriate contour of the small finger digit. This was then dressed with Xeroform 4 x 4's fluffs bulky soft dressing and Didier wrap. Patient was then awake from anesthesia taken to recovery in stable condition. Disposition: Patient taken PACU stable condition recovering well. Patient received appropriate discharge structures medication postoperatively patient to complete postoperative antibiotics and will follow-up in the orthopedic office in 2 weeks all questions answered.
--- NOTE | 2024-04-14 13:51 | SUR.PREOP ---
Patient had IV tylenol and toradol ordered for pre op set. Patient states in pre op that she cannot feel her hands or feet due to neuropathy. Did not give pre op meds for pain.
== END 2024-04-14 14:58 | disposition home or self-care (01) ==
PROVIDERS: PCP Physician Assistant; Visit Provider Student in an Organized Health Care Education/Training Program
PROC: (CPT 26951; principal; 2024-04-14 11:40)
DX: M86.8X4 Other osteomyelitis, hand (principal); K21.9 Gastro-esophageal reflux disease without esophagitis
CPT/HCPCS: 26951; 36415; 84703; 88305; 88311; J0690; J1100; J2250; J2405; J2704; J2795; J3010; J3490; J7030

== ENCOUNTER 2024-05-03 06:00 | Outpatient (CLI) | payer OTHER, SELFPAY | END 2024-05-03 23:59 | disposition home or self-care (01) | LOC: SOT 05-09 10:37 | PROVIDERS: Visit Provider Physician Assistant | DX: Z46.89 Encounter for fitting and adjustment of other specified devices (principal); M24.541 Contracture, right hand | CPT/HCPCS: 97760; L3935 ==

== ENCOUNTER → 2024-05-18 10:20 | Outpatient (BNVA) | payer OTHER, SELFPAY | PROVIDERS: Visit Provider Specialist | DX: S82.831D Other fracture of upper and lower end of right fibula, subsequent encounter for closed fracture with routine healing (principal); S82.241D Displaced spiral fracture of shaft of right tibia, subsequent encounter for closed fracture with routine healing; S82.431D Displaced oblique fracture of shaft of right fibula, subsequent encounter for closed fracture with routine healing; X58.XXXD Exposure to other specified factors, subsequent encounter | CPT/HCPCS: 73590 ==

== ENCOUNTER 2024-06-03 09:25 | Outpatient (RCR) | payer OTHER, SELFPAY | END 2024-06-24 23:59 | disposition home or self-care (01) | LOC: SPT 09:25 | PROVIDERS: Visit Provider Specialist | DX: S82.431D Displaced oblique fracture of shaft of right fibula, subsequent encounter for closed fracture with routine healing (principal); X58.XXXD Exposure to other specified factors, subsequent encounter | CPT/HCPCS: 97110; 97116; 97161 ==

== ENCOUNTER 2024-06-25 06:00 | Outpatient (RCR) | payer OTHER, SELFPAY | END 2024-07-25 23:59 | disposition home or self-care (01) | LOC: SPT 06:00 | PROVIDERS: PCP Physician Assistant; Visit Provider Specialist | DX: S82.431D Displaced oblique fracture of shaft of right fibula, subsequent encounter for closed fracture with routine healing (principal); X58.XXXD Exposure to other specified factors, subsequent encounter | CPT/HCPCS: 97110; 97116 ==

== ENCOUNTER → 2024-07-04 13:31 | Outpatient (BNVA) | payer OTHER, SELFPAY | PROVIDERS: PCP Physician Assistant; Visit Provider Specialist | DX: S82.241D Displaced spiral fracture of shaft of right tibia, subsequent encounter for closed fracture with routine healing (principal); S82.431D Displaced oblique fracture of shaft of right fibula, subsequent encounter for closed fracture with routine healing; X58.XXXD Exposure to other specified factors, subsequent encounter | CPT/HCPCS: 73590 ==

== ENCOUNTER 2024-07-26 06:30 | Outpatient (RCR) | payer OTHER, SELFPAY | END 2024-08-08 09:10 | disposition home or self-care (01) | LOC: SPT 06:30 | PROVIDERS: PCP Physician Assistant; Visit Provider Specialist | DX: S82.431D Displaced oblique fracture of shaft of right fibula, subsequent encounter for closed fracture with routine healing (principal); X58.XXXD Exposure to other specified factors, subsequent encounter | CPT/HCPCS: 97110 ==

== ENCOUNTER → 2024-08-15 13:36 | Outpatient (BNVA) | payer OTHER, SELFPAY | PROVIDERS: PCP Physician Assistant; Visit Provider Specialist | DX: S82.431D Displaced oblique fracture of shaft of right fibula, subsequent encounter for closed fracture with routine healing (principal); S82.241D Displaced spiral fracture of shaft of right tibia, subsequent encounter for closed fracture with routine healing; S82.831D Other fracture of upper and lower end of right fibula, subsequent encounter for closed fracture with routine healing; X58.XXXD Exposure to other specified factors, subsequent encounter | CPT/HCPCS: 73590 ==

== ENCOUNTER 2024-09-09 12:52 | Outpatient (CLI) | payer OTHER, SELFPAY ==
[2024-09-09 13:50] LABS: HCG Quantitative < 1.00 mIU/mL
== END 2024-09-09 12:53 | disposition home or self-care (01) ==
PROVIDERS: PCP Physician Assistant; Visit Provider Physician Assistant
DX: N91.1 Secondary amenorrhea (principal)
CPT/HCPCS: 36415; 84702

== ENCOUNTER 2024-09-30 12:47 | Outpatient (CLI) | payer OTHER, SELFPAY ==
[2024-09-30 13:40] LABS: HCG Quantitative < 1.00 mIU/mL
== END 2024-09-30 12:48 | disposition home or self-care (01) ==
PROVIDERS: PCP Physician Assistant; Visit Provider Physician Assistant
DX: N91.2 Amenorrhea, unspecified (principal)
CPT/HCPCS: 36415; 84702

== ENCOUNTER 2024-11-25 11:21 | Outpatient (CLI) | payer OTHER, SELFPAY ==
--- NOTE | 2024-11-25 11:15 | USCV_ITS ---
Belkys Alba Age: 34 Gender: F : 1990 Exam Date: 11/25/2024 11:38 Ordering Phys: Viviana Thomas MD Technologist: CONNOR [place] [facility] [place]: SoB, CP BP: 125 / 60 HR: 76 Rhythm: Sinus Technical Quality: Adequate MEASUREMENTS (Male / Female) Normal Values 2D ECHO LV Diastolic Diameter PLAX 4.5 cm 4.2 - 5.9 / 3.9 - 5.3 cm IVS Diastolic Thickness 0.9 cm 0.6 - 1.0 / 0.6 - 0.9 cm IVS Systolic Thickness 1.4 cm LVPW Diastolic Thickness 1.1 cm 0.6 - 1.0 / 0.6 - 0.9 cm LVPW Systolic Thickness 1.3 cm LVOT Diameter 1.9 cm LV Ejection Fraction 2D Teich 62.6 % LV Ejection Fraction MOD 4C 59.1 % LV Ejection Fraction MOD 2C 65.5 % LV Ejection Fraction 2C AL 67.8 % LA Diameter 2.4 cm RA Systolic Volume 4C AL 22.3 ml RA Systolic Volume 4C MOD 20.3 ml LA Sys Volume AL 40.8 cm cubed LA Sys Volume Index AL 19.3 cm cubed/m squared Aorta at Sinotubular Diameter 2.3 cm M-MODE LA Ao Ratio MM 1.5 AV Cusp Separation MM 1.6 cm DOPPLER AV Peak Velocity 144.0 cm/s LVOT Peak Velocity 106.0 cm/s AV Area Cont Eq vti 1.9 cm squared AV Area Cont Eq pk 2.1 cm squared MV Peak Velocity 113.0 cm/s MV Area PHT 4.1 cm squared Mitral E to A Ratio 1.8 TR Peak Velocity 140.0 cm/s TR Peak Gradient 7.8 mmHg TV Peak E Velocity 91.0 cm/s PV Peak Velocity 143.0 cm/s FINDINGS Left Ventricle Normal left ventricular size, systolic function and wall thickness, with no regional wall motion abnormalities. Left ventricular ejection fraction is estimated at 60 %. Normal diastolic function. Right Ventricle The right ventricle is normal in size and function. Right Atrium The right atrium is normal in size. Left Atrium The left atrium is normal in size. Mitral Valve Structurally normal mitral valve without significant stenosis or prolapse. There is no mitral regurgitation. Aortic Valve Mild aortic valve calcification. No aortic valve stenosis. Trace aortic valve regurgitation. Tricuspid Valve Structurally normal tricuspid valve without significant stenosis or regurgitation. Pulmonary artery systolic pressure is normal. Pulmonic Valve Trace pulmonary valve regurgitation. Pericardium Normal pericardium without effusion. Aorta Normal ascending aorta dimension. IVC The inferior vena cava appears normal. CONCLUSIONS Normal left ventricular size, systolic function and wall thickness, with no regional wall motion abnormalities. Left ventricular ejection fraction is estimated at 60 %. Normal diastolic function. Mild aortic valve calcification. No aortic valve stenosis. Trace aortic valve regurgitation. Structurally normal mitral valve without significant stenosis or prolapse. There is no mitral regurgitation. There is no pericardial effusion. Right atrial pressure is around 5 mm of mercury. Leida Peraza MD (Electronically Signed) Final Date: 26 November 2024 18:53 S
== END 2024-11-25 11:22 | disposition home or self-care (01) ==
LOC: RAD 11:21
PROVIDERS: PCP Physician Assistant; Visit Provider Specialist
DX: G71.00 Muscular dystrophy, unspecified (principal); I35.1 Nonrheumatic aortic (valve) insufficiency; I35.8 Other nonrheumatic aortic valve disorders; I37.1 Nonrheumatic pulmonary valve insufficiency
CPT/HCPCS: 93306

== ENCOUNTER → 2025-02-06 08:26 | Outpatient (BNVA) | payer OTHER, SELFPAY | PROVIDERS: PCP Physician Assistant; Visit Provider Podiatrist Foot & Ankle Surgery | DX: S91.301A Unspecified open wound, right foot, initial encounter (principal); X58.XXXA Exposure to other specified factors, initial encounter | CPT/HCPCS: 87075 ==

== ENCOUNTER 2025-04-06 15:40 | Outpatient (CLI) | payer OTHER, MEDICAID, SELFPAY ==
--- NOTE | 2025-04-06 15:48 | XR_ITS ---
WS: [id number] XR hand RT min 3V* [id number] REASON FOR EXAM: Chronic 2nd finger wound that is swollen and Boggy FINDINGS: Longitudinal screw arthrodesis of the DIP joint of the thumb. Surgical appliance intact and in good position and alignment unchanged compared to 04/08/2024. Amputation of the index finger at the level of the mid proximal phalange. No periosteal reaction or bone erosion no interval change compared to 04/08/2024. Amputation of the middle finger at the level of the base of the proximal phalange. Unchanged compared to 04/08/2024. Amputation of the fourth finger at the level of the distal proximal phalange. No change compared to 04/08/2024. Amputation of the fifth finger at the level of the proximal interphalangeal joint. XR/XR hand RT min 3V* [id number] IMPRESSION: Thumb arthrodesis and multiple amputations. No findings of osteomyelitis.
== END 2025-04-06 15:41 | disposition home or self-care (01) ==
PROVIDERS: PCP Physician Assistant; Visit Provider Thoracic Surgery (Cardiothoracic Vascular Surgery)
DX: L08.9 Local infection of the skin and subcutaneous tissue, unspecified (principal); L98.499 Non-pressure chronic ulcer of skin of other sites with unspecified severity; Z89.011 Acquired absence of right thumb; Z89.021 Acquired absence of right finger(s); Z98.1 Arthrodesis status
CPT/HCPCS: 73130

== ENCOUNTER → 2025-04-13 15:42 | Outpatient (BNVA) | payer OTHER, MEDICAID, SELFPAY | PROVIDERS: PCP Physician Assistant; Visit Provider Thoracic Surgery (Cardiothoracic Vascular Surgery) | DX: L97.518 Non-pressure chronic ulcer of other part of right foot with other specified severity (principal) | CPT/HCPCS: 87070 ==